=== PATIENT | female | born 1975 | race Caucasian/White ===

== ENCOUNTER 2017-08-17 11:44 | Emergency (ER) | payer MEDICAID, SELFPAY ==
[2017-08-17 11:45] VITALS: BP 118/71; PULSE 96; RESP 18; TEMP 36.7; O2SAT 98; BMI 29.6
--- NOTE | 2017-08-17 12:27 | ED.VISSUMM ---
- ER Visit Summary Date of Service: 08/17/17 Chief Complaint: [] Left sided back pain today while stretching to reach objects at home History of Present Illness: The patient is a 41 F [] history of low lumbar back pain with 3 prior lumbar back surgeries she has also had neck fusion related to cervical disc disease she basically reports she has chronic low lumbar back pain she has been seen by multiple physicians including pain management which she stopped seeing in April 2017 she had prior back injections. She indicates today she was stretching to reach for some objects in her own when she had pain to the low left lumbar area that she has had before she could not relieve the pain she came in for evaluation. She had no fever no cough no chest pain no abdominal pain no nausea no numbness weakness or paresthesias no bowel or bladder complaints the pain is from the left low lumbar back into the left buttock she really does not complain of any pain radiating to the lower leg and she has no complaints of anything to suggest cauda equina as her bowel bladder habits have been normal, She indicates she has had this type pain in the past she did received back injections those stopped working she was on pain management therapy and eventually discontinue that as above She suffered no direct trauma is the history of reaching stretching as above Physical Examination: [] She is in no distress she prefers to lay on the right side head neck chest abdomen unremarkable the midline back is unremarkable there is no pain her pain is really more localized to the left SI joint region and into the left buttock this area is tender to palpation no warmth no crepitance she has full range of motion to her lower extremities dorsi and plantarflexion of the toes and the feet are unremarkable symmetric pulses symmetric as her skin she has no signs of motor weakness the lower extremities or sensory loss neurologically she is awake and alert her baseline Test Results: [] Emergency Department Course and Treatment: [] All of the above the patient her family at this time she will be given Toradol morphine 4 Jackpot tablets for home use and she is to follow-up with her pain management physicians family physicians and other prescribers and caregivers to further manage this ongoing pain she is comfortable with this plan Treatment Plan: [] Disposition: [] Home stable Impression: [] Acute recurrent lumbar back pain is This note was generated with Photocollectation software. It may contain incorrect words, spelling, and punctuation that were not noted in review of the chart prior to signing ED Disposition - Plan for ED Patient: Chief Complaint: Back Referrals: Bee Penaloza MD [Primary Care Provider] -
--- NOTE | 2017-08-17 12:30 | ED.DEP ---
ED Disposition - Plan for ED Patient: Chief Complaint: Back Instructions: ED Sciatica Prescriptions: Hydrocodone/Acetaminophen [[place] 5-325 Tablet] 1 ea PO 4X/DAY PRN PRN #4 tab PRN Reason: Pain Naproxen [Naprosyn] 500 mg PO BID PRN #20 tab Referrals: Bee Penaloza MD [Primary Care Provider] -
--- NOTE | 2017-08-17 12:35 | DCINST.ED_ITS ---
ED Disposition - Plan for ED Patient: Chief Complaint: Back Instructions: ED Sciatica Prescriptions: Hydrocodone/Acetaminophen [[place] 5-325 Tablet] 1 ea PO 4X/DAY PRN PRN #4 tab PRN Reason: Pain Naproxen [Naprosyn] 500 mg PO BID PRN #20 tab Referrals: Bee Penaloza MD [Primary Care Provider] -
[2017-08-17] MEDS: Ketorolac 60 MG/2 ML Vial IM (12:56)
[2017-08-17] MEDS: morphine 8 MG/ML Syringe IM (12:57)
[2017-08-17] MEDS: Ondansetron ODT 4 MG Tablet PO (12:57)
[2017-08-17 13:36] VITALS: BP 140/72; PULSE 80; RESP 18; O2SAT 98
== END 2017-08-17 13:39 | disposition home or self-care (01) ==
PROVIDERS: Emergency Provider Emergency Medicine; Family Provider Internal Medicine; PCP Internal Medicine
DX: M54.5 Low back pain (principal); Z98.1 Arthrodesis status
CPT/HCPCS: 99283

== ENCOUNTER 2018-06-28 10:54 | Emergency (ER) | payer MEDICAID, SELFPAY ==
[2018-06-28 10:55] VITALS: BP 119/78; PULSE 86; RESP 20; TEMP 36.8; O2SAT 98; BMI 26.5
--- NOTE | 2018-06-28 11:09 | RAD_ITS ---
STUDY: X-RAY - LUMBAR SPINE REASON FOR EXAM: Female, 42 years old. Low back pain radiating to the right leg. TECHNIQUE: 3 view(s) of the lumbar spine were obtained. COMPARISON: X-ray dated May 12, 2016. FINDINGS: No significant scoliosis. Lumbar lordosis relatively preserved. Intervertebral disc height loss predominates at L4-5. Endplate spondylosis predominates at L4-5. No foraminal narrowing predominates at L4-5 and L5-S1. Minimal facet joint arthrosis. No spondylolisthesis. No acute fracture line. No dislocation. No cortical destruction. Right upper quadrant surgical clips. Normal bowel gas pattern. Pelvic phleboliths. RAD/Lumbar Spine 2 or 3 Views IMPRESSION: Lumbar spine intact Lumbar spine degenerative changes predominating at L4-5 Electronically Signed: Dave Banks DO at 12:09 EDT Tel , Service support ,
[2018-06-28] MEDS: morphine 8 MG/ML Syringe SC (11:18)
--- NOTE | 2018-06-28 11:25 | ED.DCSUM_ITS ---
- ER Visit Summary Date of Service: 06/28/18 Chief Complaint: Right lower back pain History of Present Illness: The patient is a 42 F who has right lower back pain. This pain is radiating to the right hip and right leg. She has been dealing with it for some time but got worse yesterday. It is sharp. Movement and ambulation makes it worse. Nothing makes it better. She denies any bowel or bladder incontinence or retention. She took nothing for this at home. She does have a history of back problems and has had 3 lower back surgeries. She denies any injuries or falls. Physical Examination: Vital signs reviewed. HEENT exam unremarkable. Heart is regular rate and rhythm. Lungs are clear to auscultation. Abdomen soft and nontender. Back exam reveals no specific tenderness to palpation. She has a positive straight leg raise at 20 degrees on the right. There is no hip tenderness. No pain with logroll. Her neurologic exam including reflexes is normal Test Results: Urinalysis negative for infection or blood. Lumbar spine x-rays reveal degenerative changes Emergency Department Course and Treatment: The patient was given subcutaneous morphine. After this she was able to ambulate without difficulty. I did give her some prednisone and a GI cocktail for some stomach irritation. I feel this is likely sciatica. I will treat her with prednisone and a short course of [place] at home. [facility] report shows no prescriptions since August 2017 Treatment Plan: [] Disposition: Discharge Impression: Sciatica This note was generated with [employer] dictation software. It may contain incorrect words, spelling, and punctuation that were not noted in review of the chart prior to signing ED Disposition - Plan for ED Patient: Referrals: Bee Penaloza MD [Primary Care Provider] -
[2018-06-28 12:21] LABS: Bacteria 0 SEEN /hpf (None Seen); Mucous, Urine 0 SEEN /hpf (<or=2+); Red Blood Cells-Urine 0 SEEN /hpf (0-5)
[2018-06-28 12:22] LABS: Color, Urine Yellow (Yellow); Glucose, Dipstick Normal (Normal); Ketone-Dipstick Negative (Negative); Leukocyte Esterase-Dipstick 25 /ul (Negative); Nitrite-Dipstick Negative (Negative); Occult Blood-Urine Negative /ul (Negative); Protein-Dipstick Negative (Negative); Urine Bilirubin Dipstick Negative (Negative); Urine Clarity Sl. Cloudy (Clear); Urine Urobilinogen Normal (Normal)
[2018-06-28] MEDS: predniSONE 20 MG Tablet 60 MG PO (12:26)
[2018-06-28 12:28] LABS: Squamous Epithelial Cells - UA 0-5 SEEN /hpf (5-10); White Blood Cells 0-5 SEEN /hpf (0-5)
--- NOTE | 2018-06-28 12:46 | ED.DEP ---
ED Disposition - Plan for ED Patient: Disposition: Home or Assisted Living Instructions: ED Sciatica Prescriptions: Hydrocodone Bitart/Apap 5-325 [[place] 5MG-325MG] 1 tab PO Q6H PRN PRN 3 Days #10 tab PRN Reason: Pain Prednisone [Deltasone] 40 mg PO DAILY #10 tab Referrals: Bee Penalzoa MD [Primary Care Provider] -
[2018-06-28] MEDS: Ondansetron ODT 4 MG Tablet 8 MG PO (12:50)
[2018-06-28] MEDS: Mag Hydrox/Al Hydrox/Simeth 30 ML UDC PO (13:03)
[2018-06-28 13:37] VITALS: BP 101/66; PULSE 52; RESP 16; O2SAT 100
== END 2018-06-28 13:38 | disposition home or self-care (01) ==
PROVIDERS: Emergency Provider Emergency Medicine; Family Provider Internal Medicine; PCP Internal Medicine
DX: M54.30 Sciatica, unspecified side (principal); Z72.0 Tobacco use
CPT/HCPCS: 72100; 81001; 96372; 99282

== ENCOUNTER 2018-07-07 11:03 | Emergency (ER) | payer MEDICAID, SELFPAY ==
[2018-07-07 11:04] VITALS: BP 140/105; PULSE 101; RESP 16; TEMP 36.7; O2SAT 98; BMI 25.6
--- NOTE | 2018-07-07 11:31 | MRI_ITS ---
STUDY: MRI LUMBAR SPINE WITH AND WITHOUT CONTRAST REASON FOR EXAM: Female, 42 years old. Low back pain and bilateral legs. Hard to walk. Leg weakness. TECHNIQUE: Standardized fat and water weighted pulse sequences were obtained in the sagittal and axial planes. 12 IV Dotarem was administered for the contrast portion of the examination. COMPARISON: 05/12/2016 FINDINGS: T10-T11: (Sagittal only). Normal endplates. Normal disc height, hydration and morphology. No ventral extradural defect. Normal central canal and bilateral intervertebral neural foramina. T11-T12: (Sagittal only). Normal endplates. Normal disc height, hydration and morphology. No ventral extradural defect. Normal central canal and bilateral intervertebral neural foramina. T12-L1: (Sagittal only). Normal endplates. Normal disc height, hydration and morphology. No ventral extradural defect. Normal central canal and bilateral intervertebral neural foramina. Normal lumbar lordosis. There is no substantial scoliosis. Normal conus medullaris that terminates at the T12-L1 disc level. L1-2: Normal L1 inferior endplate. Minimal old compression fracture in the central aspect of the L2 superior endplate. This accounts for the increased disc space height. Normal disc hydration and morphology. No ventral extradural defect. Normal central canal and bilateral lateral recesses. Normal facet joints. Normal bilateral intervertebral neural foramina. L2-3: Normal endplates. Normal disc height, hydration and morphology. Normal bilateral facet joints. Normal central canal and bilateral lateral recesses. Normal bilateral intervertebral neural foramina. L3-4: Normal endplates. Mild disc space height narrowing. Small posterior T2 hyperintensity zone underneath the bulging annulus is posterior annular fissure. This is unchanged. Normal central canal and bilateral lateral recesses. Mild dorsal epidural lipomatosis. Normal facet joints. Normal bilateral intervertebral neural foramina. L4-5: Modic type II degenerative vertebral marrow fatty changes underneath the vertebral endplates. Moderate disc space height narrowing. Mild degenerative retrolisthesis of L4 on L5. Right L4 hemilaminectomy defect. Posterior bulging of the thecal sac at the hemilaminectomy site. Normal central canal and bilateral lateral recesses. Minimal right ventral extradural defect is enhancing postoperative fibrosis. Normal facet joints. Normal bilateral intervertebral neural foramina. L5-S1: Normal endplates. Normal disc height and morphology. Normal central canal and bilateral lateral recesses. Normal facet joints. Normal bilateral intervertebral neural foramina. Normal visualized sacral ala. Normal visualized paraspinous soft tissue structures. Minimal enhancing postoperative fibrosis of the right L4-L5 ventral extradural defect. No other enhancing lesions intradurally and extradurally. MRI/Spine Lumbar W/WO Contrast IMPRESSION: 1. Small right L4-L5 ventral extradural defect is enhancing postoperative fibrosis. 2. No MRI evidence of lumbar extruded disc fragment, spinal stenosis or nerve root displacement. 3. Small posterior annular fissure at the L3-L4 disc level is underneath the posterior bulging annulus. This is unchanged. 4. Pronounced Modic type II degenerative vertebral marrow fatty changes underneath the vertebral endplates at L4-L5 disc level and mild degenerative retrolisthesis of L4 on L5. This level is unchanged. 5. No significant interval changes when compared to 05/30/2016. Electronically Signed: Ashish Hargrove MD at 15:42 EDT , Service support ,
--- NOTE | 2018-07-07 11:34 | ED.VISSUMM ---
- ER Visit Summary Date of Service: 07/07/18 Chief Complaint: Muscle spasms and pain History of Present Illness: The patient is a 42 F with history of bipolar disorder, back pain, depression. She has had 3 prior back surgeries. She is complaining of pain from her neck down to her tailbone that is been ongoing for quite some time. She states her feet and her lower legs are numb. That started yesterday. She was seen by her PCP yesterday where labs and MRIs were ordered to be done as an outpatient. Patient is supposed to see her neurologist next week. Patient states she was told that the pain is worse to go to the emergency room. She has not taken anything for pain today. Patient was seen in the ER on June 28 for low back pain. At that time she was treated with prednisone and [place] the patient reports no improvement. Physical Examination: Vital signs unremarkable. Patient is lying in bed in a darkened room. She is tearful. Head and neck examination reveals no obvious external sign of trauma. Heart is regular rate and rhythm. Lungs sounds are clear. Abdomen is soft and nontender. Back examination reveals diffuse tenderness throughout the thoracic and lumbar paraspinal muscles. She does have midline tenderness in the lower thoracic and lumbar region. Lower extremity examination reveals 1+ bilateral patellar reflexes. She is unequivocal Babinski's bilaterally. She is palpable distal pulses. She has good strength on testing and turns from her side to her back without difficulty. Test Results: CBC and chemistry studies are normal. Urinalysis is 150 ketones. MRI of the lumbar spine shows small right L4-5 postop fibrosis. No lumbar extruded disc, spinal stenosis, or nerve root impingement noted. There is an unchanged posterior annular fissure of L3-L4. There is unchanged degenerative fatty changes. Emergency Department Course and Treatment: Patient was given dose of morphine, Zofran, and IV fluids. After returning from MRI she did receive a second dose of morphine. At this time patient's pain is improved. She began a prescription for Percocet and baclofen which is worked well for her in the past. She will follow-up on Monday with her neurologist as scheduled. Treatment Plan: [] Disposition: Discharge Impression: Back pain with muscle spasms This note was generated with [employer]Med[employer] software. It may contain incorrect words, spelling, and punctuation that were not noted in review of the chart prior to signing ED Disposition - Plan for ED Patient: Referrals: Bee Penaloza MD [Primary Care Provider] -
[2018-07-07 11:51] LABS: Absolute Lymphocyte Count 1.96 X10^3/ul (0.83-4.51); Absolute Neutrophil Count 4.4 X10^3/uL (2.0-7.7); Basophil# 0.02 X10^3/uL; Basophil% 0.3 % (0-1); Eosinophil# 0.11 X10^3/uL; Eosinophils% 1.6 % (0-5); Hematocrit 41.9 % (37-47); Lymphocyte # 1.96 X10^3/ul (4.0); Lymphocyte % 28.1 % (19-41); Mean Corp Hgb Conc 33.4 g/gl (32-36); Mean Corpuscular Volume 92.9 fL (81-99); Mean Platelet Vol. 9.2 fl (6.2-12.0); Monocyte# 0.43 X10^3/uL; Monocyte% 6.2 % (0-10); Neutrophil # 4.44 X10^3/uL (2.7-7.7); Neutrophil % 63.7 % (47-70); POSITIVE COUNT NO; POSITIVE DIFFERENTIAL NO; POSITIVE MORPHOLOGY NO; Platelet Count 371 K/mm3 (150-450); RBC Distribution Width CV 12.9 % (11.6-14.6); RBC Distribution Width SD 43.2 fl (35.1-43.9); Red Blood Count 4.51 M/mm3 (4.2-5.4)
[2018-07-07 12:02] LABS: Anion Gap 4 (5-15); BUN 9 mg/dL (7-18); BUN/Creat Ratio 12.7 RATIO (10-20); Chloride 105 mmol/L (98-107); Creatinine, Serum 0.71 mg/dL (0.55-1.02); EST Glomerular Filtration Rate 97 mL/min (>60); Est Glom Filt Rate - Afr Amer 117 mL/min (>60); Glucose 92 mg/dL (74-106); Potassium 3.7 mmol/L (3.5-5.1); Sodium Level 136 mmol/L (136-145)
[2018-07-07] MEDS: 0.9% Normal Saline 1,000 ML 150 ML IV (12:13)
[2018-07-07] MEDS: Morphine 4 MG/ML Syringe IV ×2 (12:13→14:25)
[2018-07-07] MEDS: Ondansetron 4 MG/2 ML Vial IV ×2 (12:14→14:23)
[2018-07-07 13:28] LABS: Red Blood Cells-Urine 0 SEEN /hpf (0-5)
[2018-07-07 13:29] LABS: Color, Urine Yellow (Yellow); Glucose, Dipstick Normal (Normal); Leukocyte Esterase-Dipstick 100 /ul (Negative); Nitrite-Dipstick Negative (Negative); Occult Blood-Urine Negative /ul (Negative); Protein-Dipstick Negative (Negative); Specific Gravity, Urine 1.015 (1.002-1.030); Urine Bilirubin Dipstick Negative (Negative); Urine Clarity Sl. Cloudy (Clear); Urine Urobilinogen Normal (Normal)
[2018-07-07 13:33] LABS: Ketone-Dipstick 150 mg/dl (Negative)
--- NOTE | 2018-07-07 13:35 | ED.RN ---
CRITICAL URINE KEYTONE 150 CALLED FROM LAB
[2018-07-07 13:36] LABS: Bacteria 2+ /hpf (None Seen); Mucous, Urine RARE /hpf (<or=2+); Squamous Epithelial Cells - UA 0-5 SEEN /hpf (5-10); Trichomonas 0-5 SEEN /hpf (None Seen); White Blood Cells 5-10 SEEN /hpf (0-5)
[2018-07-07 14:16] VITALS: BP 103/56; PULSE 60; RESP 18; O2SAT 100
--- NOTE | 2018-07-07 16:08 | ED.DEP ---
ED Disposition - Plan for ED Patient: Disposition: Home or Assisted Living Instructions: ED Neck Back Pain General, ED Spasm Muscle Prescriptions: Oxycodone HCl/Acetaminophen [Percocet 5/325] 1 tablet PO Q6H PRN PRN 5 Days #20 tablet PRN Reason: Pain Baclofen 10 mg PO TID PRN PRN #14 tablet PRN Reason: Spasms Referrals: Bee Penaloza MD [Primary Care Provider] - Additional Instructions: Follow-up with your neurologist as scheduled.
[2018-07-07 16:22] VITALS: BP 108/74; PULSE 83; RESP 16; RESP 18; O2SAT 96
== END 2018-07-07 16:55 | disposition home or self-care (01) ==
PROVIDERS: Emergency Provider Emergency Medicine; Family Provider Internal Medicine; PCP Internal Medicine
DX: M54.9 Dorsalgia, unspecified (principal); M62.838 Other muscle spasm; R51 Headache; R20.2 Paresthesia of skin; Z72.0 Tobacco use
CPT/HCPCS: 72158; 80048; 81001; 85025; 96361; 96374; 96375; 96376; 99284; A9575; J7030; A4216; J2405

== ENCOUNTER → 2018-07-19 10:30 | Outpatient (CLI) | payer MEDICAID, SELFPAY ==
[2018-07-07 11:04] VITALS: BMI 25.6
[2018-07-19 12:18] LABS: Erythrocyte Sedimentation Rate 4 mm/hr (0-20)
[2018-07-19 12:50] LABS: Hemoglobin A1c 5.7 % (4.2-6.3)
[2018-07-19 13:10] LABS: Rheumatoid Factor < 10.0 IU/mL (<15); Thyroid Stim Hormone (TSH) 1.58 uIU/mL (0.358-3.74)
[2018-07-19 13:33] LABS: HIV - WCH Non-Reactive (Nonreactive); Vitamin B12 346 pg/mL (211-911)
[2018-07-20 17:38] LABS: PROEL- A/G Ratio 1.1 (0.7-1.7); PROEL- Albumin 3.5 g/dL (2.9-4.4); PROEL- Alpha-1 Globulin 0.3 g/dL (0.0-0.4); PROEL- Alpha-2 Globulin 0.7 g/dL (0.4-1.0); PROEL- Beta Globulin 1.2 g/dL (0.7-1.3); PROEL- Gamma Globulin 1.1 g/dL (0.4-1.8); PROEL- Globulin, Total 3.3 g/dL (2.2-3.9); PROEL- TOTAL PROTEIN 6.8 g/dL (6.0-8.5); RNP Ab 0.3 AI (0.0-0.9); Smith Ab <0.2 AI (0.0-0.9)
[2018-07-21 15:31] LABS: Hep C Antibodies 5.9 s/co ratio (0.0-0.9)
[2018-07-21 15:54] LABS: ANTINUCLEAR ANTIBODIES DIRECT Negative (Negative)
== END ==
PROVIDERS: Family Provider Internal Medicine; PCP Internal Medicine; Referring Provider Psychiatry & Neurology Neurology; Visit Provider Psychiatry & Neurology Neurology
DX: G62.9 Polyneuropathy, unspecified (principal); R20.2 Paresthesia of skin; R53.83 Other fatigue; R73.9 Hyperglycemia, unspecified
CPT/HCPCS: 36415; 82607; 82746; 83036; 84165; 84443; 85652; 86038; 86235; 86431; 86703; 86803

== ENCOUNTER 2018-08-10 12:00 | Outpatient (RCR) | payer MEDICAID, SELFPAY ==
--- NOTE | 2018-08-02 15:32 | HP.PTEVAL ---
Patient's Visit Information JONH SOMMER is a 42 year old F referred to Physical Therapy by Ebenezer Meredith MD with a diagnosis of BPPV. Date of Evaluation: 08/02/18 Physical Therapist: Dave Fernández, DPT, OCS, CSCS - Visit Plan Frequency: 1-2x /Week Duration: 4-6 Weeks Plan: weekly 1-2 for 2-8 as needed for positional treatments/ex adn other vestibular if warranted. - Subjective Findings: Having very bad dizzy spells causing her in the past to fall off ladders, avoid turning fast, can't walk fast, can't lift heavy things. Things spin on her 10-15 seconds caused by heat, activity, kneeling and standing, sit down, not really an obvious reason. Onset was over a year ago. Was in [employer] for first spell do dishes. 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 Kids are helpful. She doesn't carry laundry up steps. Other symptoms include poor hearing in both ears with ringing intermittently. Eyesight can be off and doctor doesn't know why, will see eye doctor. States she can be tingly without reason. Lst 5 days have been good with this though. Sleeping OK an oamitryptilline as she gets LARA alot. She has had these a long time. Sent to [facility] for dizzyness from [facility]. Enjoys reading adn swimming but hasn't done them as swimming makes her sick and nauseous. Has had brain MRI, nerve testing on legs, bloodwork, heart tests and without obvious positive results. Takes vitmain D supplement. Fell off ladder 2x adn will not climb them anymore, and did not hit head. - Pain all over Pain Intensity (Out of 10): 3 Pain Intensity Range: 3, 10 Comment: FM 9 years ago. - Objective Walks and trasnfers I. Good balance. Hesitant to look up while walking but could do it well. c/S aROM WFL and without pain today. - R hallpike. + L hallpike for up torsional 5 second nystagmus, treated with L Radha and then negative hallpike. - Balance Scores Functional Gait Assessment Score: 30 % Disability: 0 CATSIB Score (Max score 120 seconds): 110 - Goals Goal 1:: abolish dizzyness Goal Time Frame: 4-6 Weeks Goal 2:: Feel back to 90% better with activities adn laundry Goal Time Frame: 4-6 Weeks - Rehabilitation Potential Physical Therapy Diagnosis: BPPV Rehabilitation Potential: Good - Anticipated Interventions Patient/Client Instruction: Educate patient on: Condition, Plan of Care For the Purpose of:: To increase tolerance to activity/condition/position Comment: positional treatmetns adn ex, vestibular. For the Purpose of:: To increase tolerance to activity/condition/position Thank you for the opportunity to evaluate your patient. For Medicare and Medicare HMO plans, please review the plan of care and approve it. It will need to be FAXED BACK to us at [phone] for Medicare purposes. For Medicare only, by signing this I certify the plan of care. Please let me know if there are questions or concerns regarding this plan of care. Physician Signature: Date:
--- NOTE | 2018-10-29 09:32 | HP.PT.NRP ---
HP - Discharge Summary (1) - Patient Information JONH SOMMER was seen in my office for initial evaluation on 08/02/18. The following Plan of Care was established for this patient: Initial Frequency: 1-2x /Week Initial Duration: 4-6 Weeks - Anticipated Interventions Patient/Client Instruction: Educate patient on: Condition, Plan of Care For the Purpose of:: To increase tolerance to activity/condition/position For the Purpose of:: To increase tolerance to activity/condition/position This patient was last seen in our office 08/10/18. Pertinent comments regarding their Physical therapy will appear below: Pt seen two visits of plan of care and no showed for last visit without rescheduling. at this point, it has been over two months and I will discontinue due to nonattendance. At this point I will be discontinuing this patient from physical therapy. I would be happy to see this patient again in the future if found appropriate by the physician. Thank you! Dave Fernández, DPT, OCS, CSCS
== END 2018-08-10 19:00 | disposition home or self-care (01) ==
LOC: PT 12:00
PROVIDERS: Family Provider Internal Medicine; PCP Internal Medicine; Visit Provider Psychiatry & Neurology Neurology
DX: H81.10 Benign paroxysmal vertigo, unspecified ear (principal)
CPT/HCPCS: 97162; 97530

== ENCOUNTER 2018-10-10 09:39 | Emergency (ER) | payer MEDICAID, SELFPAY ==
[2018-10-10 09:40] VITALS: BP 113/68; PULSE 72; RESP 16; TEMP 36.3; BMI 23.8
[2018-10-10] MEDS: DiphenhydrAMINE 50 MG/ML Syringe 25 MG IV (10:38)
[2018-10-10] MEDS: Ketorolac 30 MG/ML Syringe IV (10:39)
[2018-10-10] MEDS: Metoclopramide 10 MG/2 ML Vial IV (10:39)
[2018-10-10] MEDS: 0.9% Normal Saline 1,000 ML 999 ML IV (10:39)
--- NOTE | 2018-10-10 11:38 | ED.VISSUMM ---
- ER Visit Summary Date of Service: 10/10/18 Chief Complaint: Headache History of Present Illness: The patient is a 43 F with history of migraine headaches. She states this headache started 2 days ago and is diffuse in location. She states normally her migraines will get better with Excedrin but this time did not. She has had light sensitivity, nausea, but no vomiting. She has had some mild sinus pressure. No significant URI symptoms and no head injury. Physical Examination: Vital signs unremarkable. Head and neck examination normal. Heart is regular rate and rhythm. Lung sounds clear. Abdomen soft nontender. Neuro exam is normal. Test Results: [] Emergency Department Course and Treatment: Patient was given Toradol, Reglan, Benadryl, and IV fluids. On repeat evaluation headache is approximately 70% improved. She will be discharged with family. Treatment Plan: [] Disposition: Discharge Impression: Migraine, improved This note was generated with [employer] dictation software. It may contain incorrect words, spelling, and punctuation that were not noted in review of the chart prior to signing ED Disposition - Plan for ED Patient: Disposition: Home or Assisted Living Instructions: HEADACHE, Migraine (Classical) Referrals: Bee Penaloza MD [Primary Care Provider] - As Needed
[2018-10-10 12:02] VITALS: BP 105/64; PULSE 555; RESP 16
== END 2018-10-10 12:02 | disposition home or self-care (01) ==
PROVIDERS: Emergency Provider Emergency Medicine; Family Provider Internal Medicine; PCP Internal Medicine
DX: G43.909 Migraine, unspecified, not intractable, without status migrainosus (principal); Z72.0 Tobacco use
CPT/HCPCS: 96361; 96374; 96375; 99283; J7030; A4216

== ENCOUNTER → 2018-10-29 15:20 | Outpatient (CLI) | payer MEDICAID, SELFPAY ==
[2018-10-10 09:40] VITALS: BMI 23.8
--- NOTE | 2018-10-29 15:31 | MRI_ITS ---
HISTORY: Dizziness, occasional blackout spells 1.5 years COMPARISON: None. TECHNIQUE: Multiphasic multiplanar MR imaging of the brain per department protocol without and with 12 ml of Dotarem intravenous gadolinium. # of images including paperwork: 330 FINDINGS: BRAIN: Diffusion-weighted imaging shows no acute infarct. No remote parenchymal infarct. No parenchymal hemorrhage, intra-axial mass, mass effect, or midline shift. No abnormal extra-axial fluid collections. No callososeptal, pericallosal, or periventricular white matter signal abnormalities. VENTRICLES: Ventricles are normal in size and configuration. No hydrocephalus. POST CONTRAST: No abnormal enhancing parenchymal or dural based lesions. OTHER: Paranasal sinuses are clear. Mastoid air cells are clear. Orbits are unremarkable. MRI/Brain W/WO Contrast IMPRESSION: 1. Negative pre-and postcontrast MR examination of brain. at 1810 Reported and signed by: Abdirahman Thompson MD Electronically Signed: Abdirahman Thompson MD at 18:09 EDT Tel , Service support ,
== END ==
PROVIDERS: Family Provider Internal Medicine; PCP Internal Medicine; Referring Provider Psychiatry & Neurology Neurology; Visit Provider Psychiatry & Neurology Neurology
DX: R55 Syncope and collapse (principal)
CPT/HCPCS: 70553; A9575

== ENCOUNTER 2018-11-25 16:26 | Emergency (ER) | payer MEDICAID, SELFPAY ==
[2018-11-25 16:27] VITALS: BP 102/73; PULSE 68; RESP 16; TEMP 36.6; O2SAT 97; BMI 24.7
--- NOTE | 2018-11-25 16:39 | ED.DCSUM_ITS ---
- ER Visit Summary Date of Service: 11/25/18 Chief Complaint: Migraine headache History of Present Illness: The patient is a 43 F history of migraine headaches. Had a recent MRI about a month ago that was negative. Patient states last night she gradual onset of her typical migraine it begins in her forehead and spreads out all over her entire head. Associated nausea but no vomiting, diarrhea nor any fever. No sinus congestion. No trauma. She is on no blood thinners. She denies any difficulty moving her arms or legs. No visual change or speech change. This is typical for 1 of her migraines. Physical Examination: Middle-aged female. Complaining of pain. Vital signs are stable and afebrile. HEENT exam unremarkable. No sinus tenderness. Pupils round reactive light. Extra motions are intact. No facial droop. Normal speech. Neck nontender no meningismus. Able to do full range of motion with her neck. Lungs clear to auscultation. Heart regular rhythm. Abdomen soft nontender. Moving all 4 extremities. Neurovascular intact. 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 Dorsi plantarflexion intact. Neurologically she is awake and alert with no focal motor or sensory deficits. NIH score is 0. Fingertip to nose within normal limits bilaterally. Test Results: None Emergency Department Course and Treatment: Patient be treated for migraine headache with IV fluids, Toradol, Benadryl and Phenergan. She has had recent negative imaging. Repeat exam patient is doing well at 1720 2 PM. Headache is resolving. She feels comfortable being discharged home. Her neurologic exam is unchanged. Treatment Plan: Fluids and rest. Migraine meds at home as needed. Follow-up. Disposition: Discharge Impression: Acute cephalgia with a history of migraines This note was generated with [employer] dictation software. It may contain incorrect words, spelling, and punctuation that were not noted in review of the chart prior to signing ED Disposition - Plan for ED Patient: Disposition: Home or Assisted Living Instructions: ED, Migraine (Classical) Referrals: Bee Penaloza MD [Primary Care Provider] - 3-5 Days if not improving Additional Instructions: Plenty of fluids and rest. Migraine medications at home. Follow-up if not improving or return if worse.
--- NOTE | 2018-11-25 16:42 | ED.DEP ---
ED Disposition - Plan for ED Patient: Disposition: Home or Assisted Living Instructions: ED, Migraine (Classical) Referrals: Bee Penaloza MD [Primary Care Provider] - 3-5 Days if not improving Additional Instructions: Plenty of fluids and rest. Migraine medications at home. Follow-up if not improving or return if worse.
[2018-11-25] MEDS: 0.9% Normal Saline 1,000 ML 1000 ML IV (16:43)
[2018-11-25] MEDS: proMETHazine 25 MG/ML Syringe 12.5 MG IV (16:44)
[2018-11-25] MEDS: Ketorolac 30 MG/ML Syringe IV (16:45)
[2018-11-25] MEDS: DiphenhydrAMINE 50 MG/ML Syringe IV (16:46)
[2018-11-25 17:13] VITALS: BP 118/55; PULSE 52; RESP 18; O2SAT 100
[2018-11-25 17:24] VITALS: BP 118/55; PULSE 52; RESP 18
== END 2018-11-25 17:29 | disposition home or self-care (01) ==
LOC: ED 17:00
PROVIDERS: Emergency Provider Emergency Medicine; Family Provider Internal Medicine; PCP Internal Medicine
DX: G43.909 Migraine, unspecified, not intractable, without status migrainosus (principal); Z72.0 Tobacco use
CPT/HCPCS: 96361; 96374; 96375; 99284; J7030; A4216

== ENCOUNTER → 2018-12-14 14:26 | Outpatient (CLI) | payer MEDICAID, SELFPAY ==
[2018-11-25 16:27] VITALS: BMI 24.7
[2018-12-14 15:50] LABS: Erythrocyte Sedimentation Rate 12 mm/hr (0-20)
[2018-12-14 15:57] LABS: CRP 3.73 mg/L (0.0-3.0)
[2018-12-17 16:07] LABS: Cytoplasmic Ab (C-ANCA) <1:20 titer (Neg:<1:20)
[2018-12-18 09:58] LABS: ANTINUCLEAR ANTIBODIES DIRECT Negative (Negative); Perinuclear Ab (P-ANCA) <1:20 titer (Neg:<1:20)
== END ==
PROVIDERS: Family Provider Internal Medicine; PCP Internal Medicine; Referring Provider Psychiatry & Neurology Neurology; Visit Provider Psychiatry & Neurology Neurology
DX: M31.5 Giant cell arteritis with polymyalgia rheumatica (principal)
CPT/HCPCS: 36415; 85652; 86038; 86140; 86256

== ENCOUNTER 2019-03-14 13:36 | Emergency (ER) | payer MEDICAID, SELFPAY ==
[2019-03-14 13:37] VITALS: BP 134/87; PULSE 70; RESP 17; TEMP 36.7; O2SAT 100; BMI 25.7
[2019-03-14 14:12] VITALS: RESP 18
--- NOTE | 2019-03-14 14:38 | ED.VIS.GEN ---
History of Present Illness Chief Complaint: Back Informant: Patient, Family Onset: - - Ears chronic Current Severity: Mild Narrative: Low lumbar back pain radiating to the right buttock area for years, She has had 3 lumbar back surgeries in the past for the above, extensive prior evaluation for postoperative lumbar back pain including MRIs and x-rays and other work-up with outpatient providers she has been told she does not require additional back surgery she has flareups of the back pain she is on no pain management meds as she is scheduled to see a pain management physician she had prior lumbar back injections for this type of pain, she had no trauma no numbness weakness paresthesias no bowel or bladder complaints Believes her chronic back pain syndrome exacerbated because she was at work lifting and bending and turning and twisting Past Medical History - Allergies and Home Meds Allergies/Adverse Reactions: Allergies bupropion [From Wellbutrin] Allergy (Verified 03/14/19 13:37) Swelling risperidone [From Risperdal] Adverse Reaction (Verified 03/14/19 13:37) Other restlessness tramadol Adverse Reaction (Verified 03/14/19 13:37) Upset Stomach Primary Care Physician: Bee Penaloza MD [Primary Care Provider] - Prior records reviewed: No - See above Past Medical History: - - See above lumbar back pain history surgery Smoking Status: Current every day smoker Review of Systems General: Denies: Chills, Fever, Sweats Eyes: Denies: Visual changes - bilaterally, Diplopia ENT: Denies: Rhinorrhea, Sore throat Cardiovascular: Denies: Chest pain, Palpitations Respiratory: Denies: Dyspnea, Cough, Dyspnea on exertion Gastrointestinal: Denies: Abdominal pain, Nausea, Vomiting, Diarrhea, Melena, Hematochezia Genitourinary: Denies: Dysuria, Hematuria, Frequency Musculoskeletal: Reports: Back pain. Denies: Extremity Pain Skin: Denies: Rash, Wounds Neurological: Denies: Headache, Weakness, Numbness Physical Exam Vital Signs/Narrative: Vital Signs Temp Pulse Resp BP Pulse Ox 03/14/19 14:12 18 03/14/19 13:37 98.0 F 70 17 134/87 H 100 General: Well nourished, Well developed, No Acute Distress Head: Normocephalic, Atraumatic Eyes: Perrl, EOMI ENT: Moist mucous membranes, No rhinorrhea Neck: Supple, Nontender Cardiovascular: Regular rate, Regular rhythm, No murmurs Respiratory: No distress, CTA bilaterally, Chest nontender Abdomen: Soft, Nontender, Nondistended, Normal bowel sounds Back: Nontender, Normal Inspection, - - She has a pain to the low lumbar back radiates to the right buttock, there is no focal pain is really subjective she has full range of motion of the hip knee able dorsi and plantarflex at the foot no symptoms on the left her abdomen soft and nontender C-spine T-spine nontender the rest of her exam is really unremarkable Extremities: Nontender, No edema Skin: Normal color, No rash Neurological: Alert, Oriented x3, Cranial nerves II-XII grossly intact, Normal Strength, Normal Sensation Psychological: Normal affect, Normal Mood Diagnostic/Tx/Re-eval - Medical Decision Making I had a long conversation with the patient she assures me this is her chronic back pain there is been no exacerbations no signs of fracture no signs of cauda equina no bowel or bladder complaints At this time we will treated with morphine IM Toradol IM, she will be discharged to use what ever home medications her outpatient providers have recommended she use Naprosyn if tolerated and she will follow-up with her outpatient providers for further management Home stable Final impression ED Disposition - Plan for ED Patient: Diagnosis: Back pain Instructions: BACK SPASM, No Trauma, BACK PAIN w/ SCIATICA Prescriptions: Naproxen [Naprosyn] 500 mg PO BID PRN #20 tab Prescription Printed Referrals: Bee Penaloza MD [Primary Care Provider] -
[2019-03-14] MEDS: Ketorolac 30 MG/ML Syringe IM (14:47)
[2019-03-14] MEDS: morphine 8 MG/ML Syringe SC (14:48)
== END 2019-03-14 15:20 | disposition home or self-care (01) ==
LOC: ED 14:10
PROVIDERS: Emergency Provider Emergency Medicine; Family Provider Internal Medicine; PCP Internal Medicine
DX: M54.5 Low back pain (principal); G89.29 Other chronic pain; F17.200 Nicotine dependence, unspecified, uncomplicated; Z88.5 Allergy status to narcotic agent; Z88.8 Allergy status to other drugs, medicaments and biological substances
CPT/HCPCS: 99282

== ENCOUNTER → 2019-03-16 11:57 | Outpatient (CLI) | payer MEDICAID, SELFPAY ==
[2019-03-14 13:37] VITALS: BMI 25.7
[2019-03-16 12:32] LABS: Amphetamine Urine VISTA NEGATIVE (<1000 ng/mL); Barbiturate Urine VISTA NEGATIVE (< 200 ng/mL); Benzodiazepine Urine VISTA NEGATIVE (< 200 ng/mL); Cocaine Urine VISTA NEGATIVE (< 300 ng/mL); Ecstacy Urine VISTA NEGATIVE (< 500 ng/mL); Methadone Urine VISTA NEGATIVE (< 300 ng/mL); PCP Urine VISTA NEGATIVE (< 25 ng/mL); THC Urine VISTA NEGATIVE (< 50 ng/mL); Vista UDS pH Range 6
== END ==
PROVIDERS: Family Provider Internal Medicine; PCP Internal Medicine; Referring Provider Anesthesiology; Visit Provider Anesthesiology
DX: F11.20 Opioid dependence, uncomplicated (principal)
CPT/HCPCS: 80307

== ENCOUNTER 2019-03-29 11:59 | Day surgery (SDC) | payer MEDICAID, SELFPAY ==
[2019-03-29] VITALS (7 sets, daily range): BP systolic 94–112; BP diastolic 56–81; PULSE 44–55; RESP 14–16; TEMP 36.2–36.6; O2SAT 98–100; BMI 25.9
[2019-03-29] MEDS: Lactated Ringers 1,000 ML 100 ML IV (12:42)
--- NOTE | 2019-03-29 14:23 | OP.PCM_ITS ---
Problem List (1) Cervical radiculopathy Status: Acute (2) Cervical radiculopathy due to degenerative joint disease of spine Status: Acute (3) DDD (degenerative disc disease), cervical Status: Acute Report of Operation Date of Procedure: 03/29/19 Pre-Operative Diagnosis: Cervical degenerative disc disease with cervical radiculopathy Post-Operative Diagnosis: Same Surgery/Procedure Performed:: Cervical epidural steroid injection at C6-7 under fluoroscopy guidance Description of Surgical Findings:: Under sterile conditions. Patient placed in the prone position, pressure points were padded, patient was ready from the nursing and the anesthesia team. After identification of the side and the target area for the block under guided fluoroscopy, the entry site at the posterior cervical epidural space at T6-7 was marked with marking pen. I used Betadine for sterilization of the skin, sterile draping were applied. Using 25-gauge needle to infiltrate the skin with local anesthesia using preservative-free lidocaine 0.5% injected 2.5 mL at site of entry. Using guided fluoroscopy, accessed the the posterior epidural space using 20- gauge Touhy needles under midline approach to access cervical epidural posterior space at C6-7, accessed the site was assisted with lateral fluoroscopy, followed by using [id number] technique using preservative-free normal saline, negative aspiration of CSF and blood. Injected contrast solution [1] mL under live fluoroscopy which showed good spread of the contrast to the posterior epidural space and to the targeted area of the injection at[ C6-7]. Injected [3] mL of mixture of preservative-free lidocaine and Kenalog [80] mg for the procedure which showed appropriate spread in the epidural space. [place] was removed, pressure dressing were applied. Patient tolerated the procedure well and was taken to the recovery. Type of Anesthesia:: Local MAC Estimated Blood Loss (mL): None Description of Procedure: Cervical epidural steroid injection at T6-7 - Complications None
--- NOTE | 2019-03-29 14:26 | DCINST_ITS ---
- Discharge Diagnoses Current Active Problems: Current Active and Chronic Problems Cervical radiculopathy (Acute) Cervical radiculopathy due to degenerative joint disease of spine (Acute) DDD (degenerative disc disease), cervical (Acute) Reason(s) for Visit for Discharge Instructions: Receiving cervical epidural steroid injection to help with her neck pain You will use the following diet at home:: No restrictions Your food should be the consistency of: Regular Discharge Activity: Return to Normal Activity May shower in (days): 1 May resume sexual activity in: No Restrictions Weight Bearing Status: Weight bearing as tolerated Call your doctor if your incision/area has: Continuous Slow Oozing, Sudden Increased Bleeding, Increased Pain/ Swelling, Increased Redness, Foul Smelling Discharge, Swelling at the incision site Call your doctor if you observe: Fever of 101 or Higher, Coldness, Increased Pain, Numbness or Tingling, Calf discomfort, Uncontrolled pain Suture Line Care: Avoid Pulling/Pushing, Avoid Pinching/Bending Remove Dressing in (days):: 1 Cleanse incision/area with: Soap & Water Allergies/Adverse Reactions: Allergies bupropion [From Wellbutrin] Allergy (Verified 03/28/19 15:00) Swelling hydrocodone [From Vicodin] Adverse Reaction (Verified 03/28/19 15:01) Other headache risperidone [From Risperdal] Adverse Reaction (Verified 03/28/19 15:00) Other restlessness tramadol Adverse Reaction (Verified 03/28/19 15:00) Upset Stomach Medications to take at Discharge Doxepin HCl [Sinequan] 20 mg PO QHS 03/28/19 Ergocalciferol (Vitamin D2) [Vitamin D2] 50,000 unit PO QWEEK 03/28/19 Nabumetone 750 mg PO BID 03/28/19 Omeprazole 40 mg PO PRN PRN 03/28/19 Pregabalin [Lyrica] 75 mg PO 4X/DAY 03/28/19 Tizanidine HCl [Zanaflex] 4 mg PO TID 03/28/19 Primary Care Physician: Bee Penaloza MD [Primary Care Provider] - Test Results: Test results from this visit will be discussed in further detail at your follow- up appointment, if applicable. Please Follow Up With: Nanette Hylton MD
--- NOTE | 2019-03-29 14:27 | RAD_ITS ---
STUDY: X-RAY - CERVICAL SPINE REASON FOR EXAM: Female, 43 years old. CERVICAL SPINE EPIDURAL BLOCK 1 LEVEL C6-C7 IN OR TECHNIQUE: 2 fluoroscopic view(s) of the cervical spine were obtained. 17.7 seconds of fluoroscopy time. Dose 4.31 mGy COMPARISON: Routine cervical spine films of September 19, 2016. FINDINGS: An anterior view of the cervical spine demonstrates the needle marker directed to the midline at the T1 level below the existing anterior spinal fusion hardware present at C5, C6 and C7. RAD/Cerv Spine 2 or 3 Views IMPRESSION: Needle marker directed to the midline at the T1 level. Electronically Signed: Maty Powell MD at 19:28 EST , Service support ,
[2019-03-29] MEDS: Triamcinolone Acetonide 40 MG/ML Vial (14:38)
== END 2019-03-29 15:56 | disposition home or self-care (01) ==
LOC: SDC 12:00 → AC 12:01
PROVIDERS: Family Provider Internal Medicine; PCP Internal Medicine; Referring Provider Anesthesiology; Visit Provider Anesthesiology
PROC: 3E0S3BZ Introduction of Anesthetic Agent into Epidural Space, Percutaneous Approach (ICD-10-PCS; CPT 62320; principal; 2019-03-29 13:50)
DX: M47.22 Other spondylosis with radiculopathy, cervical region (principal); M50.123 Cervical disc disorder at C6-C7 level with radiculopathy; M50.222 Other cervical disc displacement at C5-C6 level; M47.27 Other spondylosis with radiculopathy, lumbosacral region; M51.27 Other intervertebral disc displacement, lumbosacral region; M51.37 Other intervertebral disc degeneration, lumbosacral region; M96.1 Postlaminectomy syndrome, not elsewhere classified; G89.29 Other chronic pain; M79.7 Fibromyalgia; G43.909 Migraine, unspecified, not intractable, without status migrainosus; K21.9 Gastro-esophageal reflux disease without esophagitis; F31.9 Bipolar disorder, unspecified; F41.9 Anxiety disorder, unspecified; F17.200 Nicotine dependence, unspecified, uncomplicated; Z79.899 Other long term (current) drug therapy
CPT/HCPCS: 62321; 64490; 72040; J7120

== ENCOUNTER 2019-04-19 13:19 | Day surgery (SDC) | payer MEDICAID, SELFPAY ==
[2019-03-29 12:26] VITALS: BMI 25.9
[2019-04-19] VITALS (7 sets, daily range): BP systolic 92–115; BP diastolic 64–69; PULSE 53–62; RESP 14–16; TEMP 36.5–36.8; O2SAT 97–100; BMI 26.3
[2019-04-19] MEDS: Lactated Ringers 1,000 ML 100 ML IV (13:55)
--- NOTE | 2019-04-19 14:26 | RAD_ITS ---
STUDY: X-RAY - LUMBAR SPINE REASON FOR EXAM: Female, 43 years old. LUMBAR EPIDURAL L3-4 TECHNIQUE: 4 view(s) of the lumbar spine were obtained. COMPARISON: None FINDINGS: Spot fluoroscopy images during lumbar epidural. Please see performing physician''s report for further details RAD/Spine 1 View Any Level IMPRESSION: As above Electronically Signed: Wilian Morales DO at 19:43 EST Tel , Service support ,
--- NOTE | 2019-04-19 14:38 | DCINST_ITS ---
- Discharge Diagnoses Current Active Problems: Back pain and lumbar radiculopathy due to degenerative disc disease Reason(s) for Visit for Discharge Instructions: Receiving lumbar epidural steroid injection at the level of L3-4 under fluoroscopy guidance You will use the following diet at home:: No restrictions Your food should be the consistency of: Regular Discharge Activity: Return to Normal Activity May shower in (days): 1 May resume sexual activity in: No Restrictions Weight Bearing Status: Weight bearing as tolerated, Full weight bearing, Partial weight bearing, Toe touch weight bearing, No weight bearing Call your doctor if your incision/area has: Continuous Slow Oozing, Sudden Increased Bleeding, Increased Pain/ Swelling, Increased Redness, Foul Smelling Discharge, Swelling at the incision site Call your doctor if you observe: Fever of 101 or Higher, Coldness, Increased Pain, Numbness or Tingling, Uncontrolled pain Suture Line Care: Avoid Pulling/Pushing, Avoid Pinching/Bending Remove Dressing in (days):: 1 Cleanse incision/area with: Soap & Water Allergies/Adverse Reactions: Allergies bupropion [From Wellbutrin] Allergy (Verified 03/28/19 15:00) Swelling hydrocodone [From Vicodin] Adverse Reaction (Verified 03/28/19 15:01) Other headache risperidone [From Risperdal] Adverse Reaction (Verified 03/28/19 15:00) Other restlessness tramadol Adverse Reaction (Verified 03/28/19 15:00) Upset Stomach Medications to take at Discharge Ergocalciferol (Vitamin D2) [Vitamin D2] 50,000 unit PO QWEEK 03/28/19 Nabumetone 750 mg PO BID 03/28/19 Omeprazole 40 mg PO PRN PRN 03/28/19 Pregabalin [Lyrica] 75 mg PO 4X/DAY 03/28/19 Tizanidine HCl [Zanaflex] 4 mg PO TID 03/28/19 Primary Care Physician: Bee Penaloza MD [Primary Care Provider] - Test Results: Test results from this visit will be discussed in further detail at your follow- up appointment, if applicable. Please Follow Up With: Nanette Hylton MD
--- NOTE | 2019-04-19 14:42 | PCM.OPRPT ---
Report of Operation Date of Procedure: 04/19/19 Pre-Operative Diagnosis: Lumbar disc disorders at the level of the L3-4 causing lumbar spine pain and lumbar radiculopathy Post-Operative Diagnosis: Lumbar degenerative disease and lumbar radiculopathy Surgery/Procedure Performed:: Lumbar epidural steroid injection at the level of the L3-4 interlaminar approach under fluoroscopy guidance Description of Surgical Findings:: Under sterile conditions. Patient placed in the prone position, pressure points were padded, patient was ready from the nursing and the anesthesia team. After identification of the side and the target area for the block under guided fluoroscopy, the entry site was marked with marking pen. I used Betadine for sterilization of the skin, sterile draping were applied. Using 25-gauge needle to infiltrate the skin with local anesthesia using preservative-free lidocaine 0.5% injected 2.5 mL at site of entry. Using guided fluoroscopy, accessed the the posterior epidural space using 18-gauge Touhy needles under midline approach, accessed the site was assisted with lateral fluoroscopy, followed by using [id number] technique using preservative-free normal saline, negative aspiration of CSF and blood. Injected contrast solution [2.5] mL under live fluoroscopy which showed good spread of the contrast to the posterior epidural space and to the targeted area of the injection at[ L3-4]. Injected [5] mL of mixture of preservative-free lidocaine and Kenalog [80] mg for the procedure which showed appropriate spread in the epidural space. [place] was removed, pressure dressing were applied. Patient tolerated the procedure well and was taken to the recovery. Type of Anesthesia:: Local MAC Estimated Blood Loss (mL): None - Complications None
[2019-04-19] MEDS: Triamcinolone Acetonide 40 MG/ML Vial (14:48)
== END 2019-04-19 15:38 | disposition home or self-care (01) ==
LOC: SDC 13:21 → AC 13:23
PROVIDERS: Family Provider Internal Medicine; PCP Internal Medicine; Referring Provider Anesthesiology; Visit Provider Anesthesiology
PROC: 3E0S3BZ Introduction of Anesthetic Agent into Epidural Space, Percutaneous Approach (ICD-10-PCS; CPT 62322; principal; 2019-04-19 14:00)
DX: M51.16 Intervertebral disc disorders with radiculopathy, lumbar region (principal); Z98.1 Arthrodesis status; F17.210 Nicotine dependence, cigarettes, uncomplicated; M96.1 Postlaminectomy syndrome, not elsewhere classified; M51.27 Other intervertebral disc displacement, lumbosacral region; M51.37 Other intervertebral disc degeneration, lumbosacral region; M50.123 Cervical disc disorder at C6-C7 level with radiculopathy; M50.222 Other cervical disc displacement at C5-C6 level; M54.08 Panniculitis affecting regions of neck and back, sacral and sacrococcygeal region; M47.812 Spondylosis without myelopathy or radiculopathy, cervical region
CPT/HCPCS: 62323; 64483; 72020; J7120

== ENCOUNTER 2019-04-22 15:00 | Outpatient (RCR) | payer MEDICAID, SELFPAY ==
--- NOTE | 2019-03-26 16:09 | HP.PTEVAL_ITS ---
Patient's Visit Information JONH SOMMER is a 43 year old F referred to Physical Therapy by Nanette Hylton MD with a diagnosis of POST LAMINECTOMY SYNDROME,CERVICAL DISC DISCPLACEMENT C6- 7. Date of Evaluation: 03/26/19 Physical Therapist: Ebenezer Oseguera, PT, Cert MDT, OCS - Visit Plan Frequency: 2x /Week Duration: 4 Weeks Plan: PT INTERVENTIONS MODALITIES ,GRADED CERVICAL POSTURAL EX'S,DLS ABD/BACK ,LE FLEXABLITY - Subjective Findings: This 43 y/o male presents to physical therapy with lumbar and cervical pain. Patient had lumbar laminectomy x2 2011,cervical fusion 2016. Patient has had pain in cervical and lumbar region.Symptoms worse in back with occasional leg symptoms. Aggraveting factiors bending,lifting,sitting. Alleviating factors walking ,standing ,rest.Location symmtrical occasional rigt > left. Symptoms located in cervical spine symmtrical. Aggraveting factors standing,lifting ,turning cervical spine job demands . Alleviating factors resting,laying down. C/O parathesia legs/hands. Patient has LARA, tinnutus/nausea. Bowel/bladder -. Coughing/sneezing-. Patient as had prior PT . Patient has had epidural injection . Patient seen pain management and wants to try pain stimulator. Patient is on MEDS lyrica,xanaflex,ant-inflammatory. Patient pain affects ADLS' ,job demands and housework tasks. Patient pain affects QOL and function. SOCIAL: single. VOCATION: [employer] - Pain Bilateral Back Pain Intensity (Out of 10): 6 Pain Intensity Range: 10 Bilateral Neck Pain Intensity (Out of 10): 6 Pain Intensity Range: 10 - Objective POSTURE: mild foward posture. GAIT: reciprocal pattern. NEURO: C/O parathesia/tingling ,reflexes C5-6-7 1/3,L3-4,L4-5,L5-S1 1/3. SYMMTRIES: align. PALPATION: tender UT/levator,SI/LS. MMT: BUE 4/5 grossly. CERVICAL ROM: flexion min loss,extension min/mod loss,lateral flexion/rotation mod loss. [employer]ATOR STRENGTH: 50# dynamoter. LUMBAR ROM: flexion mod/svere loss,extension mod/severe loss,side glides mod loss. MMT: quads/hams 4/5, 4-/5 hip flexion,ankle 4/5. FLEXABILITY: hams mod tight - Special Tests C/S Radiculapathy - Left Upper limb tension test: Negative C/S Radiculapathy - Right Upper limb tension test: Negative Sharp Lukas: Negative Vertebral Artery Test: Negative Alar Ligament Test: Negative L/S Slump test left side: Negative L/S Slump test right side: Negative L/S Left Straight Leg Raise: Negative L/S Right Straight Leg Raise: Negative - Goals Goal 1:: Independant with HEP Goal Time Frame: 4-6 Weeks Goal 2:: Improve posture /body mechanics Goal Time Frame: 4-6 Weeks Goal 3:: Patient to decrease neck and lumbar pain by 50% or> to improve function and QOL Goal Time Frame: 4-6 Weeks Goal 4:: Patient to improve cervical and lumbar ROM to improve function of recovery. Goal Time Frame: 4-6 Weeks Goal 5:: Patient improve back owestry score by 5 points or greater to improve QOL. Goal Time Frame: 4-6 Weeks - Rehabilitation Potential Physical Therapy Diagnosis: This patient has cervical and lumbar pain with h/o laminectomy x2 and cervical fusion, with decrease ROM,strength ,pain impairs function and ADL'S Rehabilitation Potential: Good - Anticipated Interventions Patient/Client Instruction: Educate patient on: Condition, Plan of Care For the Purpose of:: To decrease pain, To increase ROM, To improve muscle performance and motor function, To improve ability to perform ADL's, To increase tolerance to activity/condition/position, To improve performance and independence with ADL's, To improve ability of physical actions for home/community/work/leisure, To improve health of tissue, To decrease soft tissue restriction, To increase flexibility/ROM, To reduce risk of recurrence, To improve ability to perform tasks related to life management Therapeutic Exercise to Include: Strength training, Body mechanics, Postural training, Flexibilty training, Dynamic Lumbar Stabilization For the Purpose of:: To decrease pain, To increase ROM, To improve muscle performance and motor function, To increase tolerance to activity/condition/position, To improve ability of physical actions for home/community/work/leisure, To improve health of tissue, To decrease soft tissue restriction, To increase flexibility/ROM, To improve ability to perform tasks related to life management TENS: Yes IF ES: Yes Cryotherapy (ice pack, ice massage): Yes Thermo therapy (hot pack): Yes Ultrasound (thermal/non thermal): Yes For the Purpose of:: To decrease pain, To increase ROM, To improve nutrient delivery to tissue, To increase oxygenation perfusion, To improve health of tissue, To decrease soft tissue restriction Thank you for the opportunity to evaluate your patient. For Medicare and Medicare HMO plans, please review the plan of care and approve it. It will need to be FAXED BACK to us at [phone] for Medicare purposes. For Medicare only, by signing this I certify the plan of care. Please let me know if there are questions or concerns regarding this plan of care. Physician Signature: Date:
--- NOTE | 2019-05-31 13:13 | HP.PTDCNRP_ITS ---
HP - Discharge Summary (1) - Patient Information JONH SOMMER was seen in my office for initial evaluation on 03/26/19. The following Plan of Care was established for this patient: Initial Frequency: 2x /Week Initial Duration: 4 Weeks - Anticipated Interventions Patient/Client Instruction: Educate patient on: Condition, Plan of Care For the Purpose of:: To decrease pain, To increase ROM, To improve muscle perfor tisha and motor function, To improve ability to perform ADL's, To increase tolerance to activity/condition/position, To improve performance and independence with ADL's, To improve ability of physical actions for home/community/work/leisure, To improve health of tissue, To decrease soft tissue restriction, To increase flexibility/ROM, To reduce risk of recurrence, To improve ability to perform tasks related to life management Therapeutic Exercise to Include: Strength training, Body mechanics, Postural training, Flexibilty training, Dynamic Lumbar Stabilization For the Purpose of:: To decrease pain, To increase ROM, To improve muscle performance and motor function, To increase tolerance to activity/condition/position, To improve ability of physical actions for home/community/work/leisure, To improve health of tissue, To decrease soft tissue restriction, To increase flexibility/ROM, To improve ability to perform tasks related to life management TENS: Yes IF ES: Yes Cryotherapy (ice pack, ice massage): Yes Thermo therapy (hot pack): Yes Ultrasound (thermal/non thermal): Yes For the Purpose of:: To decrease pain, To increase ROM, To improve nutrient delivery to tissue, To increase oxygenation perfusion, To improve health of tissue, To decrease soft tissue restriction This patient was last seen in our office 04/22/19. Pertinent comments regarding their Physical therapy will appear below: Patient was seen for PT for Aquatic therapy for post laminectomy syndrome focusing on postural ex's,DLS,le flexablity ,thus is d/c. At this point I will be discontinuing this patient from physical therapy. I would be happy to see this patient again in the future if found appropriate by the physician. Thank you! Ebenezer Oseguera, PT, Cert MDT, OCS
== END 2019-04-22 19:00 | disposition home or self-care (01) ==
LOC: PT 15:00
PROVIDERS: Family Provider Internal Medicine; PCP Internal Medicine; Referring Provider Anesthesiology; Visit Provider Anesthesiology
DX: M96.1 Postlaminectomy syndrome, not elsewhere classified (principal); M50.223 Other cervical disc displacement at C6-C7 level
CPT/HCPCS: 97014; 97110; 97140; 97162; G0283

== ENCOUNTER 2019-05-31 12:38 | Day surgery (SDC) | payer MEDICAID, SELFPAY ==
[2019-04-19 13:45] VITALS: BMI 26.3
[2019-05-31] VITALS (7 sets, daily range): BP systolic 97–118; BP diastolic 67–84; PULSE 55–62; RESP 12–16; TEMP 36.6–36.9; O2SAT 95–100; BMI 27.6
[2019-05-31] MEDS: Lactated Ringers 1,000 ML 100 ML IV (13:29)
--- NOTE | 2019-05-31 14:35 | RAD_ITS ---
STUDY: X-RAY - LUMBAR SPINE REASON FOR EXAM: Female, 43 years old. BLOCK LUMBAR FACET L3-S1 RIGHT SIDE TECHNIQUE: 2 view(s) of the lumbar spine were obtained. COMPARISON: None FINDINGS: 2 fluoroscopic guided images of the lumbar spine were performed in the AP and lateral projection following placement of lumbar facet blocks at L3-4, L4-5 and L5-S1 as per clinical history. For more complete information recommend correlation with procedural notes. RAD/Lumbar Spine 2 or 3 Views IMPRESSION: Fluoroscopic guided right-sided lumbar facet blocks at L3-S1 Electronically Signed: Gordy Mcknight MD at 16:08 EST , Service support ,
[2019-05-31] MEDS: Triamcinolone Acetonide 40 MG/ML Vial (14:42)
[2019-05-31] MEDS: Bupivacaine 0.25% 30 ML Vial (14:42)
--- NOTE | 2019-05-31 14:49 | DCINST_ITS ---
- Discharge Diagnoses Current Active Problems: Lumbar facet spondylosis, lower back pain Reason(s) for Visit for Discharge Instructions: Receiving right-sided lumbar facet injection under fluoroscopy guidance You will use the following diet at home:: No restrictions Your food should be the consistency of: Regular Your liquids should be the consistency of: Regular/Thin Discharge Activity: Return to Normal Activity May shower in (days): 1 May resume sexual activity in: No Restrictions Weight Bearing Status: Weight bearing as tolerated Call your doctor if your incision/area has: Continuous Slow Oozing, Sudden Increased Bleeding, Increased Pain/ Swelling, Increased Redness, Foul Smelling Discharge, Swelling at the incision site Call your doctor if you observe: Fever of 101 or Higher, Coldness, Increased Pain, Numbness or Tingling, Increased palpitations (irregular heartbeat), Uncontrolled pain Suture Line Care: Avoid Pulling/Pushing, Avoid Pinching/Bending Remove Dressing in (days):: 1 Cleanse incision/area with: Soap & Water Allergies/Adverse Reactions: Allergies bupropion [From Wellbutrin] Allergy (Verified 05/31/19 13:07) Swelling hydrocodone [From Vicodin] Adverse Reaction (Verified 05/31/19 13:07) Other headache risperidone [From Risperdal] Adverse Reaction (Verified 05/31/19 13:07) Other restlessness tramadol Adverse Reaction (Verified 05/31/19 13:07) Upset Stomach Medications to take at Discharge Ergocalciferol (Vitamin D2) [Vitamin D2] 50,000 unit PO QWEEK 03/28/19 Nabumetone 750 mg PO BID 03/28/19 Omeprazole 40 mg PO PRN PRN 03/28/19 Pregabalin [Lyrica] 75 mg PO 4X/DAY 03/28/19 Tizanidine HCl [Zanaflex] 4 mg PO TID 03/28/19 Primary Care Physician: Bee Penaloza MD [Primary Care Provider] - Test Results: Test results from this visit will be discussed in further detail at your follow- up appointment, if applicable. Please Follow Up With: Nanette Hylton MD
--- NOTE | 2019-05-31 14:50 | OP.PCM_ITS ---
Problem List (1) Spondylosis without myelopathy or radiculopathy, lumbar region Status: Acute (2) Spondylosis without myelopathy or radiculopathy, lumbar region Status: Acute (3) Low back pain Status: Acute (4) Low back pain Status: Acute Report of Operation Date of Procedure: 05/31/19 Pre-Operative Diagnosis: Lumbar facet spondylosis Post-Operative Diagnosis: Same Surgery/Procedure Performed:: Right sided lumbar facets median nerve branch block at the level of the right side L3-4 L4-5 5 S1 under fluoroscopy guidance Description of Surgical Findings:: Under sterile conditions. Patient placed in the prone position, pressure points were padded, patient was ready from the nursing and the anesthesia team. After identification of the side and the target area for the block under guided fluoroscopy, the entry site was marked with marking pen. I used Betadine for sterilization of the skin, sterile draping were applied. Using 25-gauge needle to infiltrate the skin with local anesthesia using preservative-free lidocaine 0.5% injected 2.5 mL at each site of entry. Using oblique fluoroscopy, accessed the right medial nerve branch supplying the [right] lumbar facets L3-4, L4-5, L5-S1 using 22-gauge spinal needle. After confirmation of appropriate needle placement to the targeted area with AP and lateral fluoroscopy, injected 2.5 mL mixture of preservative-free Marcaine 0.5% and Kenalog [20] mg at each site. [place] was removed, pressure dressing were applied. Patient tolerated the procedure well and was taken to the recovery. Type of Anesthesia:: Local MAC - Complications None
== END 2019-05-31 15:36 | disposition home or self-care (01) ==
LOC: SDC 12:39 → AC 12:42
PROVIDERS: PCP Internal Medicine; Referring Provider Anesthesiology; Visit Provider Anesthesiology
PROC: 3E0T3BZ Introduction of Anesthetic Agent into Peripheral Nerves and Plexi, Percutaneous Approach (ICD-10-PCS; CPT 64493; principal; 2019-05-31 14:10)
DX: M47.816 Spondylosis without myelopathy or radiculopathy, lumbar region (principal); F17.200 Nicotine dependence, unspecified, uncomplicated; M50.30 Other cervical disc degeneration, unspecified cervical region; M47.812 Spondylosis without myelopathy or radiculopathy, cervical region; M54.08 Panniculitis affecting regions of neck and back, sacral and sacrococcygeal region; M50.222 Other cervical disc displacement at C5-C6 level; M50.123 Cervical disc disorder at C6-C7 level with radiculopathy; M79.2 Neuralgia and neuritis, unspecified; M51.37 Other intervertebral disc degeneration, lumbosacral region; M51.27 Other intervertebral disc displacement, lumbosacral region; M96.1 Postlaminectomy syndrome, not elsewhere classified
CPT/HCPCS: 64493; 64494; 64495; 64483; 72100; J7120

== ENCOUNTER → 2019-08-15 10:15 | Outpatient (CLI) | payer MEDICAID, SELFPAY ==
[2019-05-31 13:15] VITALS: BMI 27.6
--- NOTE | 2019-08-15 10:18 | RAD_ITS ---
STUDY: X-RAY - CERVICAL SPINE REASON FOR EXAM: Female, 43 years old. Neck pain, headaches, bilateral upper extremity pain/tingling, previous fusion TECHNIQUE: 5 view(s) of the cervical spine were obtained including oblique views. COMPARISON: Comparison is made with prior study dated March 29, 2019. FINDINGS: Normal anterior atlantoaxial articulation. Normal odontoid process. There is straightening of the normal cervical lordosis. The patient is status post anterior fusion at the C5-C6 and C6-C7 levels with disc spacers. Mild degree of anterior spondylosis at the C4-C5 level. Normal visualized intervertebral neuroforamina. The soft tissue structures are unremarkable. RAD/Cerv Spine 4 or 5 Views IMPRESSION: Status post C5-C6 and C6-7 anterior fusion. Straightening of the normal cervical lordosis. Electronically Signed: Ramon Warren, at 11:25 EDT , Service support ,
== END ==
PROVIDERS: PCP Internal Medicine; Referring Provider Anesthesiology; Visit Provider Anesthesiology
DX: M54.2 Cervicalgia (principal)
CPT/HCPCS: 72050

== ENCOUNTER → 2019-11-05 13:51 | Outpatient (CLI) | payer MEDICAID, SELFPAY ==
[2019-05-31 13:15] VITALS: BMI 27.6
== END ==
PROVIDERS: PCP Internal Medicine; Referring Provider Nurse Practitioner Primary Care; Visit Provider Nurse Practitioner Primary Care
DX: R00.2 Palpitations (principal)
CPT/HCPCS: 93225; 93226

== ENCOUNTER 2019-11-29 12:08 | Day surgery (SDC) | payer MEDICAID, SELFPAY ==
[2019-05-31 13:15] VITALS: BMI 27.6
[2019-11-29] VITALS (8 sets, daily range): BP systolic 97–104; BP diastolic 52–71; PULSE 58–77; RESP 15–16; TEMP 36.1–36.8; O2SAT 98–100; BMI 28.0
[2019-11-29] MEDS: Lactated Ringers 1,000 ML 100 ML IV (12:45)
[2019-11-29] MEDS: Cefazolin 1 GM/50 ML BAG IV (13:07)
--- NOTE | 2019-11-29 14:00 | RAD_ITS ---
STUDY: X-RAY - LUMBAR SPINE REASON FOR EXAM: Female, 44 years old. INSERTION OF SPINAL CORD STIM. TECHNIQUE: 4 view(s) of the lumbar spine were obtained. COMPARISON: None FINDINGS: Fluoroscopy of the thoracic spine was utilized and operating room during dorsal, spinal stenotic millimeter placement.. RAD/Lumbar Spine 2 or 3 Views IMPRESSION: Fluoroscopy during surgery. Electronically Signed: Neftali Russell MD at 16:06 EDT Tel , Service support ,
[2019-11-29] MEDS: Bupivacaine Mpf 0.5% 30 ML VIAL (14:24)
--- NOTE | 2019-11-29 15:42 | DCINST_ITS ---
- Discharge Diagnoses Current Active Problems: Chronic lower back pain and lumbar radiculopathy You will use the following diet at home:: No restrictions Your food should be the consistency of: Regular Discharge Activity: Return to Normal Activity, May Drive, May Not Drive, May not drive while taking narcotic pain medications. Return to work on:: 12/06/19 May shower in (days): 4 May resume sexual activity in: No Restrictions, 10-14 days Ice area for (Minutes): 2 Weight Bearing Status: Weight bearing as tolerated, Partial weight bearing Call your doctor if your incision/area has: Continuous Slow Oozing, Sudden Increased Bleeding, Increased Pain/ Swelling, Foul Smelling Discharge, Swelling at the incision site Call your doctor if you observe: Fever of 101 or Higher, Coldness, Increased Pain, Numbness or Tingling, Change in Color, Inability to urinate, Inability to have a bowel movement, Calf discomfort, Uncontrolled pain Suture Line Care: Avoid Pulling/Pushing, Avoid Pinching/Bending Change Dressing in (Days):: 3 Remove Dressing in (days):: 3 Cleanse incision/area with: Keep Dressing Clean & Dry Allergies/Adverse Reactions: Allergies adhesive tape Allergy (Verified 11/29/19 12:30) Rash bupropion [From Wellbutrin] Allergy (Verified 11/29/19 12:30) Swelling hydrocodone [From Vicodin] Adverse Reaction (Verified 11/29/19 12:30) Other headache risperidone [From Risperdal] Adverse Reaction (Verified 11/29/19 12:30) Other restlessness tramadol Adverse Reaction (Verified 11/29/19 12:30) Upset Stomach Medications to take at Discharge Ergocalciferol (Vitamin D2) [Vitamin D2] 50,000 unit PO MOTH 03/28/19 Omeprazole 40 mg PO BID 03/28/19 Tizanidine HCl [Zanaflex] 4 mg PO TID 03/28/19 Desvenlafaxine Succinate [Pristiq ER] 25 mg PO DAILY 11/22/19 Erenumab-Aooe [Aimovig Autoinjector] 70 mg SQ QMONTH 11/22/19 Hydroxyzine Pamoate [Vistaril] 50 mg PO QHS 11/22/19 Oxycodone HCl/Acetaminophen [Oxycodon-Acetaminophen 7.5-325] 1 ea PO DAILY 11/22/19 traZODone [Desyrel] 100 mg PO QHS 11/22/19 Primary Care Physician: Bee Penaloza MD [Primary Care Provider] - Test Results: Test results from this visit will be discussed in further detail at your follow- up appointment, if applicable. Please Follow Up With: Nanette Hylton MD
--- NOTE | 2019-11-29 15:45 | PCM.OPRPT ---
Problem List (1) Postlaminectomy syndrome, not elsewhere classified Status: Acute (2) Low back pain Status: Acute (3) Radiculopathy, lumbar region Status: Acute (4) Other intervertebral disc degeneration, lumbar region Status: Acute Report of Operation Date of Procedure: 11/29/19 Pre-Operative Diagnosis: Chronic lower back pain, lumbar degenerative disc disease, lumbar radiculopathy, lumbar postlaminectomy syndrome. Post-Operative Diagnosis: Same Surgery/Procedure Performed:: 1. Spinal cord stimulator permanent implant/[employer], nonrechargeable battery, proclaim XR,. #2. implant 2x 8 contacts leads implanted in the posterior epidural space with the tip of the right lead at the top of the T8, tip of the left lead to the upper third of the T8, the leads covering T8, T9 and the top of T10 and the posterior epidural space. 3. Physician fluoroscopy guidance for the procedure 1 hour. 4. Complex programming intraoperatively 1 hour Description of Surgical Findings:: After informed consent about the procedure, review prior care for the presenting complaint of lower back pain and lower extremity radicular pain. Patient had successful spinal cord stimulator trial and decision was made to proceed with a permanent implant based on patient response to the trial period. Patient taken to OR 5, placed to the prone position pressure points were padded appropriate monitoring per anesthesia team were applied patient was safe to administer anesthesia per anesthesia team. Anesthesia provided is general anesthesia/monitored anesthesia care with no intubation. After appropriate fluoroscopy guidance and marking of the targeted area to the entry at the level of L2-3, appropriate draping was applied, sterile preparation using DuraPrep to both incision in the mid lumbar spinal area at the level of the L2-3, and of the right gluteal region for the IPG placement. Incision started , used 25-gauge needle for skin infiltration with local anesthesia using preservative-free lidocaine 0.5% mixture was Marcaine 0.25% was 1-200,000 epinephrine. Using #10 blade, made 2.5 inch longer to the incision, longitudinal, at the level of L2-L3 at the midline using #10 blade. Incision was completed using cauterization at level 30?, coagulation at levels 30? to ensure no bleeding spots. After proper exploration of the area, used a 14-gauge curved tip Touhy needle to access at 45? angle to the posterior epidural space at the entry point L1 to at midline confirmed with AP and lateral fluoroscopy and [id number] technique using preservative-free normal saline and glass syringes. I have placed to needles at the L1-2 posterior epidural space and noted aspiration was negative for CSF and blood. I passed TWO # 8 contacts leads, [[employer] system], they both passed parralel to each other through the 2 needles in the posterior epidural space confirmed with lateral fluoroscopy and AP fluoroscopy at the midline until placed smoothly at the posterior epidural space with the tip of the lead at the top of T8 vertebrae. Using [[employer] wired] cad programmer I have placed the cad programmer on the leads insured and patient was awakened throughout the placement of the wires and placement of the leads, given patient 45 - 60 minutes complex programming for the different painful target areas until the patient verified appropriate coverage over the painful areas in the lower back and both legs using contacts in the middle of both leads. After patient has expressed satisfaction with the placement patient was put back to anesthesia for sedation. I disconnected the cad programmer from the leads followed by pulling the 2 needles and the guidewire from the leads under live fluoroscopy and kept placement of the 2 leads at the posterior epidural space at the T8 and T9 as initially placed. At that time we used two anchors to anchor the [address] confirmed with fluoroscopy to ensure the leads stayed in place at each step followed by using 2 silk sutures to anchor the 2 anchors was then leads into the posterior longitudinal ligaments. IPG pocket was performed on the [ right] gluteal region below the belt line after identification was fluoroscopy, 2.5 inch transverse incision was made after local infiltration with lidocaine preservative-free 0.5% and Marcaine quarter percent infiltrated with 10 cc and using incision by #10 blade made the pocket to accommodate the rechargeable battery at place. I used tunneling device between the IPG pocket and the midline lumbar incision to tunnel the 2 leads to the IPG followed by anchoring the 2 leads into the battery and using hex wrench to tighten the placement, this was confirmed with another complex programming and impedance was completed to be appropriate at all contacts. After ensuring good placement of the system, I have used to silk suture to tighten the battery in place. We have used sterile irrigation to irrigate both pockets, followed by closure with the deep layer with 2-0 Vicryl and closure of the superficial layer with subcuticular closure with Vicryl sutures. We applied dressing using Dermabond, Steri-Strips at both insert incisions followed by covering with transparent draping. Patient tolerated the procedure well taken to recovery and prepared to be discharged home once meets anesthesia criteria, patient was given the postoperative instruction and the follow-up procedure including antibiotic coverage instructions.
== END 2019-11-29 17:09 | disposition home or self-care (01) ==
LOC: SDC 12:08 → AC 12:09
PROVIDERS: Anesthesiology; PCP Internal Medicine; Referring Provider Anesthesiology; Visit Provider Anesthesiology
PROC: (CPT 63685; principal; 2019-11-29 13:15)
DX: M96.1 Postlaminectomy syndrome, not elsewhere classified (principal); M51.16 Intervertebral disc disorders with radiculopathy, lumbar region; G89.29 Other chronic pain; M54.5 Low back pain; M79.10 Myalgia, unspecified site
CPT/HCPCS: 63650; 63685; 72100; 76000; 87635; 94799; C1713; C1778; J7120; J2405; J3490; U0003

== ENCOUNTER → 2019-12-31 10:23 | Outpatient (CLI) | payer MEDICAID, SELFPAY ==
[2019-05-31 13:15] VITALS: BMI 27.6
[2019-11-29 12:31] VITALS: BMI 28.0
--- NOTE | 2019-12-31 10:25 | US_ITS ---
STUDY: ABDOMINAL ULTRASOUND - RIGHT UPPER QUADRANT REASON FOR VISIT: Female, 44 years old MIDLINE AND LLQ PAIN -- VOMITING TECHNIQUE: Ultrasound evaluation of the right upper quadrant was performed with real-time and static castro-scale imaging. TECHNICAL QUALITY: Adequate. COMPARISON: None. FINDINGS: Liver: The liver measures 15.8 cm. There is normal echogenicity of the liver. The bile ducts are within normal limits. There is hepatic color flow. The direction of portal flow is hepatopetal. There is no demonstrated mass lesion. Gallbladder: The patient is status post cholecystectomy. Common Bile Duct (C.B.D.): The common bile duct measures 6.2 mm. Pancreas: Normal size of the head, body and tail of the pancreas. There is normal echogenicity of the pancreas. There is no demonstrated pancreatic mass or cyst. Right Kidney: Normal size of the right kidney. The right kidney measures 10.1 cm x 5.5 cm x 3.9 cm. Normal renal cortex. The right cortex measures 1.0 cm. There is no demonstrated renal mass or cyst. There is no right hydronephrosis. US/Abdomen Limited IMPRESSION: Status post cholecystectomy. No acute abnormality is seen. Electronically Signed: Ramon Warren, at 11:31 EDT , Service support ,
== END ==
PROVIDERS: PCP Internal Medicine; Referring Provider Nurse Practitioner Adult Health; Visit Provider Nurse Practitioner Adult Health
DX: R10.11 Right upper quadrant pain (principal); R10.12 Left upper quadrant pain
CPT/HCPCS: 76705

== ENCOUNTER → 2020-01-28 | Outpatient (CLI) | payer MEDICAID, SELFPAY ==
[2019-11-29 12:31] VITALS: BMI 28.0
--- NOTE | 2020-01-28 17:04 | STRESSREP ---
Stress Test Report Date: 01/28/2020 Procedure: Pharmacologic stress nuclear imaging study Indications: chest pain Consent: Per the patient Procedure: The patient underwent pharmacologic (Regadenoson) evaluation with a peak heart rate of 122 beats per minute (68%predicted maximal heart rate) and a peak blood pressure of 122/88 mmHg. The baseline ECG demonstrated sinus bradycardia. The peak pharmacologic ECG demonstrated approximately [address] segment depression in leads II, III, aVF and approximately [address] segment depression in leads V3 through V6 with subsequent resolution towards baseline in recovery. There were no cardiac dysrhythmias pretest, during pharmacologic infusion, or recovery. There was no complaint of chest discomfort during pharmacologic infusion or recovery. The examination was discontinued secondary to completion of protocol. Impression: 1. Pharmacologic (Regadenoson) evaluation 2. Peak pharmacologic ECG with approximately [address] segment depression in leads II, III, aVF and approximately [address] segment depression in leads V3 through V6 with subsequent resolution towards baseline in recovery. 3. There were no cardiac dysrhythmias pretest, during pharmacologic infusion, or recovery. 4. Nuclear images pending Myocardial perfusion imaging study: Technique: The patient was injected with 11.1 millicuries of technetium 99m Cardiolite and subsequently rest SPECT Cardiolite nuclear imaging was obtained in the horizontal long, vertical long, and short axis views. The patient underwent pharmacologic (Regadenoson) evaluation with a peak heart rate of 122 beats per minute (68% percent predicted maximal heart rate) and a peak blood pressure of 122/88 mmHg. The patient was injected with 33.0 millicuries of technetium 99m Cardiolite and subsequently stress SPECT Cardiolite nuclear imaging was obtained in the horizontal long, vertical long, and short axis views. A gated Cardiolite study at peak stress was not obtained. Interpretation: Rest and stress SPECT Cardiolite nuclear imaging status post realignment, normalization, and attenuation correction demonstrate the appearance of relatively uniform tracer uptake and myocardial perfusion at rest and status post stress there is an area of diminished tracer uptake in portions of the distal anterior and anterior apical segments. A gated Cardiolite study at peak stress was not obtained. Impression: 1. Rest and stress by car nuclear imaging demonstrate myocardial perfusion status post stress appearing compatible with an area of stress-induced myocardial ischemia in portions of the distal anterior/anterior apical segments. 2. A gated Cardiolite study at peak stress was not obtained. This note was generated with [employer] software. It may contain incorrect words, spelling, and punctuation that were not noted in checking the note before signing.
== END | disposition home or self-care (01) ==
LOC: CVS 06:53
PROVIDERS: PCP Internal Medicine
DX: R07.89 Other chest pain (principal); R00.2 Palpitations; R94.31 Abnormal electrocardiogram [ECG] [EKG]
CPT/HCPCS: 78452; 93017; A9500; A4216; J2785

== ENCOUNTER 2020-03-18 11:00 | Outpatient (RCR) | payer MEDICAID, SELFPAY ==
[2019-11-29 12:31] VITALS: BMI 28.0
--- NOTE | 2020-03-03 09:04 | HP.PTEVAL_ITS ---
Patient's Visit Information JONH SOMMER is a 44 year old F referred to Physical Therapy by Dr. Nanette Hylton MD with a diagnosis of LOW BACK PAIN,CERVICALALGIA. Date of Evaluation: 03/03/20 Physical Therapist: Ebenezer Oseguera, PT, Cert MDT, OCS - Visit Plan Frequency: 2x /Week Duration: 4 Weeks Plan: PT INTERVENTIONS AQUATIC THERAPY FOR CERVICAL/LUMBAR ROM,POSTURAL EX'S,DLS ,UE/LE STRENGTHENING - Subjective This 44 y/o female presents to physical therapy low back pain and cervicalagia. Patient has has had LBP for many years,with having s/p laminectomy x2 12 years,leakage spinal closure .Patient also has had cervical fusion 2017. Patient seen pain management about one year ,had epidural injections several and most recently had spinal stimualtor implant Dec [address] wanted PT to get stronger and pain.Pain stimulator helps. Location symtrical LS to lateral hips to anterior thighs. Aggravating factors sitting,bending,lifting ,walking and standing. Allevating factors pain MEDS ,rest,pain stimulator.Denies parathesia/tingling -. Coughing/sneezing -. Bowel/bladder-. Patient pain affect sleeping. Pain MEDS oxycodine,muscle relaxer. Pain in cervical occiput to UT . Aggraveting factors turning,sitting ,lifting. Work demands aggravetes symptoms . Pateint has LARA ,denies dizzness/nausea/tinnitus. Patient pain affects ADL'S ,job demnads and housework tasks. Patient has had recently injection in neck. Patients symptoms affects QOL. 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 SOCIAL: single - Pain Bilateral Neck Pain Intensity (Out of 10): 3 Pain Intensity Range: 10 Bilateral Back Pain Intensity (Out of 10): 9 Pain Intensity Range: 10 - Objective POSTURE: mild foward posture. GAIT: reciprocal pattern. PALPATION: unremarkable. SYYMTRIES: align. NEURO: c/o parathsia in hands,reflexes C5-6-7 2/3,L3-4,L4-5,L5-S1 2/3. PALAPTION: tender UT /levator,L-S spine. BUE AROM: WFL. MMT: quads/hams 4/5,hip flexion 4-/5,hip abd 4-/5,ankle 4/5,BUE grossly 4/5 ,shoulders 4-/5. FLEXABLITY: hams min tight,piriformis mod tight. CERVICAL ROM: flexion min loss,extension min/mod loss,lateral flexion/rotation mod loss,. LUMBAR ROM: min mod loss,extension mod/severe loss - Special Tests C/S Radiculapathy - Left Upper limb tension test: Negative C/S Radiculapathy - Right Upper limb tension test: Negative Sharp Lukas: Positive Vertebral Artery Test: Positive Alar Ligament Test: Positive L/S Slump test left side: Negative L/S Slump test right side: Negative L/S Left Straight Leg Raise: Negative L/S Right Straight Leg Raise: Negative - Goals Goal 1:: I with Aquatic Therapy program Goal Time Frame: 4-6 Weeks Goal 2:: Patient to decrease lumbar and cervical pain by 40% or > to improve QOL. Goal Time Frame: 4-6 Weeks Goal 3:: Patient to improve posture/body mechanics for ADLS' Goal Time Frame: 4-6 Weeks Goal 4:: Patient to improve cervical and lumbar ROM for function of recovey Goal Time Frame: 4-6 Weeks Goal 5:: Patient to improve back owestry score by 5 points or > to improve QOL Goal Time Frame: 4-6 Weeks - Rehabilitation Potential Physical Therapy Diagnosis: This patient has multiple comorbities as well as h/o of lumbar surgery x2,cervical fusion and recent pain stimulator implant in lumbar along with h/o fibromalagia. Pateint has pain with movement and postion in cervical and lumbar spine ,poor lumbar and cevical ROM thus affects ADL's and housework tasks. Rehabilitation Potential: Good - Anticipated Interventions Patient/Client Instruction: Educate patient on: Condition, Plan of Care For the Purpose of:: To decrease pain, To increase ROM, To improve muscle performance and motor function, To improve ability to perform ADL's, To increase tolerance to activity/condition/position, To improve performance and independence with ADL's, To improve ability of physical actions for home/community/work/leisure, To improve health of tissue, To decrease soft tissue restriction, To increase flexibility/ROM, To improve ability to perform tasks related to life management Therapeutic Exercise to Include: Strength training, Postural training, Flexibilty training, In an aquatic setting, Dynamic Lumbar Stabilization For the Purpose of:: To decrease pain, To increase ROM, To improve muscle performance and motor function, To increase tolerance to activity/condition/position, To improve performance and independence with ADL's, To improve ability of physical actions for home/community/work/leisure, To improve health of tissue, To decrease soft tissue restriction, To improve ability to perform tasks related to life management Thank you for the opportunity to evaluate your patient. For Medicare and Medicare HMO plans, please review the plan of care and approve it. It will need to be FAXED BACK to us at [phone] for Medicare purposes. For Medicare only, by signing this I certify the plan of care. Please let me know if there are questions or concerns regarding this plan of care. Physician Signature: Date:
--- NOTE | 2020-09-02 09:44 | HP.PTDCSUM ---
It has been my pleasure to treat JONH SOMMER referred by Dr. Nanette Hylton MD, with the diagnosis of LOW BACK PAIN,CERVICALALGIA for a total of 3 visit(s). Discharge Date: Please see the following information for a summary of their discharge status. Subjective: Thinks the cold weather is making her feel worse. Determined to come today even if she felt awful (d/t missing last appt) asking her boyfriend for accountability. States she was in bed all day (when she missed her last appt). Bilateral Neck Pain Intensity (Out of 10): 9 Bilateral Back Pain Intensity (Out of 10): 9 Objective/Function: Reviewed new HEP postural corrections with emphasis on neutral spine. Demo'ing excessive LB ext throughout most amb variations - cues to engagement abdominal to avoid this. Improved awareness to neutral spine noted today, particularly in NWBing. Most pain relief reported in NWBing/reduced WBing - using this to rest between sets/all tasks today d/t elevated pain levels. Goal 1:: I with Aquatic Therapy program Goal 2:: Patient to decrease lumbar and cervical pain by 40% or > to improve QOL. Goal 3:: Patient to improve posture/body mechanics for ADLS' Goal 4:: Patient to improve cervical and lumbar ROM for function of recovey Goal 5:: Patient to improve back owestry score by 5 points or > to improve QOL Plan: *Progress hip flexor/quad stretch to HEP with written descriptions. *Add wall push-ups and STSs/squats next. *Add piriformis stretch. PT INTERVENTIONS AQUATIC THERAPY FOR CERVICAL/LUMBAR ROM,POSTURAL EX'S,DLS ,UE/LE STRENGTHENING If there are questions or concerns regarding this patient's physical therapy, please feel free to call me at [phone]. Thank you for the referral of this patient. Sincerely, Ebenezer Oseguera, PT, Cert MDT, OCS
== END 2020-03-18 19:00 | disposition home or self-care (01) ==
LOC: PT 11:00
PROVIDERS: PCP Internal Medicine; Referring Provider Anesthesiology; Visit Provider Anesthesiology
DX: M54.5 Low back pain (principal); M50.320 Other cervical disc degeneration, mid-cervical region, unspecified level
CPT/HCPCS: 97113; 97162

== ENCOUNTER → 2020-05-01 11:58 | Outpatient (CLI) | payer MEDICAID, SELFPAY ==
[2019-11-29 12:31] VITALS: BMI 28.0
[2020-05-01 15:05] LABS: Amphetamine Urine VISTA NEGATIVE (<1000 ng/mL); Barbiturate Urine VISTA NEGATIVE (< 200 ng/mL); Benzodiazepine Urine VISTA NEGATIVE (< 200 ng/mL); Cocaine Urine VISTA NEGATIVE (< 300 ng/mL); Ecstacy Urine VISTA NEGATIVE (< 500 ng/mL); Methadone Urine VISTA NEGATIVE (< 300 ng/mL); PCP Urine VISTA NEGATIVE (< 25 ng/mL); THC Urine VISTA POSITIVE (< 50 ng/mL); Vista UDS pH Range 7
== END ==
PROVIDERS: PCP Internal Medicine; Referring Provider Anesthesiology; Visit Provider Anesthesiology
DX: F11.20 Opioid dependence, uncomplicated (principal)
CPT/HCPCS: 80307

== ENCOUNTER 2020-09-04 12:55 | Day surgery (SDC) | payer MEDICAID, SELFPAY ==
[2019-11-29 12:31] VITALS: BMI 28.0
[2020-09-04 13:16] VITALS: BP 109/61; PULSE 83; RESP 16; TEMP 37.3; O2SAT 100; BMI 28.8
--- NOTE | 2020-09-04 13:42 | DCINST_ITS ---
Discharge Instructions Diet Discharge Diet: No restrictions, Low fat / Low cholesterol and 1800 Calorie Control Diet Activity Discharge Activity: Return to Normal Activity, May Not Drive, May not drive while taking narcotic pain medications. and May Shower Return to work on:: 09/08/20 May shower in (days): 1 May resume sexual activity in: No Restrictions Weight Bearing Status: Weight bearing as tolerated and Full weight bearing Dressing / Incision Call your doctor if your incision/area has: Continuous Slow Oozing, Sudden Incre ased Bleeding, Increased Pain/ Swelling, Increased Redness, Foul Smelling Discharge and Swelling at the incision site Call your doctor if you observe: Fever of 101 or Higher, Coldness, Increased Pain, Numbness or Tingling, Change in Color, Inability to urinate, Inability to have a bowel movement, Increased palpitations (irregular heartbeat), Calf discomfort and Uncontrolled pain Suture Line Care: Avoid Pulling/Pushing and Avoid Pinching/Bending Change Dressing in: 1 day Remove Dressing in: 1 day Cleanse incision/area with: Soap & Water and Keep Dressing Clean & Dry Follow Up Care Please Follow Up With: Nanette Hylton MD When: 2 to 4-week Test Results: Test results from this visit will be discussed in further detail at your follow-up appointment, if applicable. Discharge Plan Admission Primary Reason for Your Visit: To receive lumbar facet block Attending Provider: Nanette Hylton Primary Care Provider: Bee Penaloza Instructions Patient Instructions: Osteoarthritis: Managing Pain, ED Back Exercises, Lumbar, ED Back Pain (Acute or Chronic) Discharge Orders/Prescriptions Prescriptions: Continued omeprazole 40 MG capsule,delayed release(DR/EC) 40 mg PO BID RF: 0 ergocalciferol (vitamin D2) 50,000 UNIT capsule 50,000 unit PO MOTH RF: 0 oxycodone-acetaminophen 1 EACH tablet 7.5 tab PO BID RF: 0 desvenlafaxine succinate 25 MG tablet extended release 24 hr 50 mg PO QHS RF: 0 amitriptyline 10 mg Tablet 10 mg PO QHS RF: 0 budesonide 3 mg Capsule,Delayed,Extend.Release 3 mg PO TID RF: 0 metaxalone 800 mg Tablet 800 mg PO TID RF: 0 Referrals / Follow Up: Bee Penaloza MD [Primary Care Provider] - Nanette Hylton MD [STAFF PHYSICIAN] - Disposition Disposition (needs filled in before D/C Order can be placed): Home, self care
--- NOTE | 2020-09-04 13:45 | PCM.OPRPT ---
Problems Associated Problem List Diagnoses (1) Low back pain: (2) Low back pain: (3) Spondylosis without myelopathy or radiculopathy, lumbar region: (4) Spondylosis without myelopathy or radiculopathy, lumbar region: Report of Operation Date of Procedure: 09/04/20 Pre-Operative Diagnosis: Lumbar facet spondylosis Post-Operative Diagnosis: Same Surgery/Procedure Performed:: Lumbar facets median nerve branch block at the level of the L3-4, L4-5, L5-S1 Description of Surgical Findings:: Under sterile conditions. Patient placed in the prone position, pressure points were padded, patient was ready from the nursing and the anesthesia team. After identification of the side and the target area for the block under guided fluoroscopy, the entry site was marked with marking pen. I used Betadine for sterilization of the skin, sterile draping were applied. Using 25-gauge needle to infiltrate the skin with local anesthesia using preservative-free lidocaine 0.5% injected 2.5 mL at each site of entry. Using oblique fluoroscopy, accessed the left medial nerve branch supplying the left lumbar facets L3-4, L4-5, L5-S1 using 22-gauge spinal needle. After confirmation of appropriate needle placement to the targeted area with AP and lateral fluoroscopy, injected 2.5 mL mixture of preservative-free Marcaine 0.5% and Kenalog [20] mg at each site. [place] was removed, pressure dressing were applied. Patient tolerated the procedure well and was taken to the recovery. Surgeon: Nanette Hylton Type of Anesthesia: Local MAC and Local Estimated Blood Loss (mL): None Complications No complications Admit VTE Documentation VTE Present on Admission: No VTE Mechan Device Prophylaxis: None Reason prophylaxis not ordered:: Procedure Not Indicated
--- NOTE | 2020-09-04 14:00 | RAD_ITS ---
PROCEDURE: Left L3-S1 facet joint block. DATE OF EXAMINATION: 09/04/2020. INDICATION: Female, 45 years old. Low back pain. FLUOROSCOPY TIME (if supplied): (20 seconds.) minutes/seconds. 4 intraoperative images were obtained. RAD/L/S Spine Min 4 Views IMPRESSION: Intraoperative imaging provided for left L3-S1 facet joint block. Electronically Signed: Ramon Warren MD at 12:43 EDT , Service support ,
[2020-09-04] MEDS: Lidocaine 1% (30 ml sdv) 30 ML Vial (14:02)
[2020-09-04] MEDS: Triamcinolone Acetonide 40 MG/ML Vial (14:02)
[2020-09-04] MEDS: Bupivacaine 0.25% 30 ML Vial (14:02)
[2020-09-04 14:32] VITALS: BP 109/61; BP 131/78; PULSE 60; RESP 16; TEMP 36.8; O2SAT 18
[2020-09-04 14:37] VITALS: BP 109/95; BP 126/85; O2SAT 100
== END 2020-09-04 14:36 | disposition home or self-care (01) ==
LOC: SDC 12:56 → AC 12:56
PROVIDERS: PCP Internal Medicine; Referring Provider Anesthesiology; Visit Provider Anesthesiology
PROC: 3E0T3BZ Introduction of Anesthetic Agent into Peripheral Nerves and Plexi, Percutaneous Approach (ICD-10-PCS; CPT 64493; principal; 2020-09-04 13:55)
DX: M47.816 Spondylosis without myelopathy or radiculopathy, lumbar region (principal); F17.210 Nicotine dependence, cigarettes, uncomplicated; M51.27 Other intervertebral disc displacement, lumbosacral region; M51.37 Other intervertebral disc degeneration, lumbosacral region; M79.2 Neuralgia and neuritis, unspecified
CPT/HCPCS: 01922; 64493; 64494; 64495; 64483; 72110

== ENCOUNTER → 2020-10-05 06:58 | Outpatient (CLI) | payer MEDICAID, SELFPAY ==
[2019-11-29 12:31] VITALS: BMI 28.0
--- NOTE | 2020-10-05 08:36 | NEURO ---
NCS and/or EMG Patient Report Ordering Doctor: Nanette Hylton DATE OF SERVICE: 10/05/20 Indication: Many years of intermittent bilateral upper extremity pain, numbness and tingling (right greater than left). History of cervical stenosis status post C5-7 decompression and fusion (2017). Evaluate for cervical radiculopathy and/or entrapment neuropathy. Findings: Nerve conduction studies were performed in the right and left upper extremity. The right median motor study recording the abductor pollicis brevis showed a normal amplitude, normal distal latency and normal conduction velocity. The right ulnar motor study recording the abductor digiti minimi showed a normal amplitude, normal distal latency and normal conduction velocity. No conduction block or focal slowing was present across the elbow. Right median ulnar lumbrical / interosseous motor latencies showed no significant difference. The right median sensory response recording digit two showed a normal amplitude, latency and conduction velocity. The right ulnar sensory response recording digit five showed a normal amplitude, latency and conduction velocity. The right radial sensory response recording over the extensor snuff box showed a normal amplitude, latency and conduction velocity. The left median motor study recording the abductor pollicis brevis showed a normal amplitude, normal distal latency and normal conduction velocity. The left ulnar motor study recording the abductor digiti minimi showed a normal amplitude, normal distal latency and normal conduction velocity. No conduction block or focal slowing was present across the elbow. Left median ulnar lumbrical / interosseous motor latencies showed no significant difference. The left median sensory response recording digit two showed a normal amplitude, latency and conduction velocity. The left ulnar sensory response recording digit five showed a normal amplitude, latency and conduction velocity. The left radial sensory response recording over the extensor snuff box showed a normal amplitude, latency and conduction velocity. Needle EMG of the right upper extremity and cervical paraspinal muscles was performed. No denervation was seen in any muscle. A complex repetitive discharge was seen in the cervical paraspinals. Motor units in the deltoid and biceps were slightly large amplitude and long duration with normal recruitment. All other examined motor unit morphology, activation and recruitment patterns were normal. Needle EMG of the left upper extremity and cervical paraspinal muscles was performed. No denervation was seen in any muscle. Motor units in the triceps and flexor carpi radialis muscles were large amplitude and long duration. Recruitment was slightly reduced in the triceps. All other examined motor unit morphology, activation and recruitment patterns were normal. Impression: This is an abnormal study. There is electrophysiologic evidence consistent with a chronic, right, C7 radiculopathy. In addition there is electrophysiologic evidence consistent with a chronic, left, C5/6 radiculopathy. There are no findings to suggest a superimposed median or ulnar entrapment neuropathy in either upper extremity. Jimi Bruce D.O.
== END ==
PROVIDERS: PCP Internal Medicine; Referring Provider Anesthesiology; Visit Provider Anesthesiology
DX: M54.12 Radiculopathy, cervical region (principal)
CPT/HCPCS: 95886; 95913

== ENCOUNTER → 2020-12-11 10:59 | Outpatient (CLI) | payer MEDICAID, SELFPAY ==
[2020-12-11 12:08] LABS: Amphetamine Urine VISTA NEGATIVE (<1000 ng/mL); Barbiturate Urine VISTA NEGATIVE (< 200 ng/mL); Benzodiazepine Urine VISTA NEGATIVE (< 200 ng/mL); Cocaine Urine VISTA NEGATIVE (< 300 ng/mL); Ecstacy Urine VISTA NEGATIVE (< 500 ng/mL); Methadone Urine VISTA NEGATIVE (< 300 ng/mL); PCP Urine VISTA NEGATIVE (< 25 ng/mL); THC Urine VISTA POSITIVE (< 50 ng/mL); Vista UDS pH Range 7
== END ==
PROVIDERS: PCP Internal Medicine; Referring Provider Anesthesiology; Visit Provider Anesthesiology
DX: F11.20 Opioid dependence, uncomplicated (principal)
CPT/HCPCS: 80307

== ENCOUNTER 2021-01-08 07:59 | Outpatient (RCR) | payer MEDICAID, SELFPAY ==
--- NOTE | 2021-01-19 06:41 | HP.FCE ---
Floor (Occasional 1-33% of Day): 15# Floor (Frequent 34-66% of Day): 8# Floor (Constant 67-100% of Day): NA Floor PDL: Sedentary-Light Knee (Occasional 1-33% of Day): 20# Knee (Frequent 34-66% of Day): 10# Knee (Constant 67-100% of Day): NA Knee PDL: Light Waist (Occasional 1-33% of Day): 20# Waist (Frequent 34-66% of Day): 10# Waist (Constant 67-100% of Day): NA Waist PDL: Sedentary-Light Shoulder (Occasional 1-33% of Day): 15# Shoulder (Frequent 34-66% of Day): 8# Shoulder (Constant 67-100% of Day): NA Overhead (Occasional 1-33% of Day): 10# Overhead (Frequent 34-66% of Day): NA Overhead (Constant 67-100% of Day): NA Overhead PDL: Sedentary Comments: pts limited with functional lift due to pain Bending: No Ablility (0% of day) Squatting: Occasional Ability (1-33% of day) Comments: with external support Kneeling: Occasional Ability (1-33% of day) Comments: low occasional ability with external support Reaching out: Occasional Ability (1-33% of day) Reaching up: Occasional Ability (1-33% of day) Sitting: Occasional Ability (1-33% of day) Comments: with ability to wt. shift Walking: Occasional Ability (1-33% of day) Standing: Occasional Ability (1-33% of day) Comments: low occasional ability Duration Sedentary Sedentary Light Light Light Medium Medium Medium Heavy Very Heavy Heavy Occasional (0-33% of day) Frequent (34-66% of day) Constant (67-100% of day) 10 # Negligible Negligible 15 # 8 # Negligible 20 # 10# Negli. 35 # 18 # 7 # 50 # 25 # 10 # 75 # 100 # >100 # 38 # 50 # >50 # 15 # 20 # >20 # Weight:: 70.307 kg Hand Dominance: right Medical History Including Restrictions: Pt states she was in good health until 2011. Pt states she underwent back sx for L4-L5 herniated disc and a x 2 (laminectomy). pt states states this was not successful in decreasing her back - it decreased her leg pain. Pt states 3rd back sx was 2 months after her second due to spinal fluid leakage. Pt states pain in spine was worse- pt was dx with Fibromyalgia. pt states she went through physical therapy was not helpful- pt states she has pain mtg. does injections to assist with pain mtg. pt states injection (lumbar/cervical) will last about a month or two. pt had neck sx in 2017 C5-C-6-C7 fusion. pt has spoken to a psychiatrist over video calls to help her with bipolar, PTSD. Diagnoses: Heart palpitations monitored by procurement inspector last there 2020. Fibromyalgia dx 2011. Cervical stenosis. Disc Herniation. Lymphocytic colitis -(pt tries to mtg diet). Migraines. insomnia. Bipolar. PTSD Symptoms: Pain in low back. pain in neck. pain in bilateral hip. pain in thoracic. headaches. pain in bilateral arm pain. weakness. Balance Pain: Pt reports her pain is 8/10 lower back and right leg, Neck, thoracic spine and headache. pt states she does have a implanted nerve stimulator that does help with her pain. pt reported it was on. Dr. Hylton dropped pain medication about 2 weeks ago due to pain medication not working- oxycodone 7.5 2 x a day- but pt does take medical marijuana. for pain pt states she takes the medical m. several times a day- pt states she vapes medical marijuana . multiple times a day- pt states she has not vaped this am. 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 Pt states she was fired October 2020 for being on covid quarantine (due to daughter dx with covid) pt states she was quarantined x2. 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 Pt did express it was difficult to sit long periods of time- pt did not say if she had a sit/stand work station. pt did states she did take off work a lot due to her health. 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 Behavioral: pt was emotional during the assessment. ADLS: Pt lives with her children ages 16 & 15 in a one story home with two entry steps with one hand rail. Pt states bathroom is tub shower combination. pt states she can bath and dress IND. pt states she has help from her family with cooking/cleaning. Pt states she can do the grocery shopping and drives ind. pt states her children do the yard work. ROM: pt demo neck ROM WNL. BUE WNL. Lumbar flexion mod. limited. lumbar extension mod limitation Strength: MMT BUE 4/5. MMT 4/5 Right Bilingual Medical Receptionist Strength Average: 50.00 Right Bilingual Medical Receptionist Strength Percentile: 6% Left Bilingual Medical Receptionist Strength Average: 40.00 Left Bilingual Medical Receptionist Strength Percentile: 3% Right Lateral Pinch Average: 8.00 Right Lateral Pinch Percentile: <10% Left Lateral Pinch Average: 8.00 Left Lateral Pinch Percentile: 10% Right Tripod Pinch Average: 6.00 Right Tripod Pinch Percentile: <10% Left Tripod Pinch Average: 6.00 Left Tripod Pinch Percentile: <10% Comments: resting heart rate 77 Sensation: [place] Monofilament sensory testing. right 3.84 = diminished Protective sensation. left 2.83 = Normal sensation Fine Motor: 9 Hole Peg Test. right 18.71= 50%. left 21.79 = 50% Balance: no loss of balance was noted during the assessment Bending: pt refused performing bending stated she can not bend forward. Squatting: pt demon the ability to squat 3/3 and 10/10 pt refused 10x rapidly with external support due to sensation of bilateral lefts sensation of feeling cold and tingling. pain level at 9/10 heart rate 84. pt can squat on a occasional ability with external support Kneeling: pt demo the ability to kneel 3/3 times with external support. heart rate 112. pt became emotional during this part of testing and reported pain 9/10 back and legs. pt can kneel on a low occasional ability with external support Reaching out/up: pt demo the ability to reach Up/out 3/3 heart rate 80. pt demo the ability to reach up/out 10/10 heart rate 81. pt demo the ability to reach out out/up 10/10 heart rate 107. pt reported 9/10. pt can reach out/up on a occasional ability Walking: pt ambulated 320 feet into the dept. with antalgic gait pattern. Pt did ambulate throughout department for about 315 feet with antalgic gait pattern and good helen speed. pt can ambulate on occasional ability. Standing: pt stood on and off during the session longest standing was 4 min with shifting body wt. pt can stand on low occasional ability Sitting: pt demo the ability to sit for 25 min prior to needing to stand or wt. shifting to increase comfort. Pt can sit on an occasional ability with ability to shift body weight. Climbing Stairs: pt demo the ability to ascend or descend 10 steps with a reciprocal step patterns and use of bilateral hand rails. pt demo good safety awareness during task. Floor Lift: pt demo the ability to lift 15# maximally from this level. pt used a good squat and lifting mechanics Knee Lift: pt demo the ability to lift 20# maximally from this level with fair ability Waist Lift: pt demo the ability to lift 20# maximally from this level with fair ability Shoulder Lift: pt demo the ability to lift 15# maximally from this level with fair ability Overhead Lift: pt demo the ability to lift 10# maximally from this level with fair ability Carrying: pt demo the ability to carry 15# for 25 feet x 2 with antalgic gait. pt emotional reporting back pin 12/18 Comments: pt pain limits pts safe functional mobility
--- NOTE | 2021-01-19 06:41 | HP.OTFCE.D ---
FCE D/C Summary - Discharge JONH SOMMER was seen for a one time visit for an FCE on 01/08/21 and is discharged.
== END 2021-01-08 19:00 | disposition home or self-care (01) ==
LOC: OT 07:59
PROVIDERS: PCP Internal Medicine; Referring Provider Anesthesiology; Visit Provider Anesthesiology
DX: M54.50 Low back pain, unspecified (principal); Z73.6 Limitation of activities due to disability; Z98.1 Arthrodesis status
CPT/HCPCS: 97750

== ENCOUNTER 2021-02-05 13:02 | Day surgery (SDC) | payer MEDICAID, SELFPAY ==
[2021-02-05] VITALS (7 sets, daily range): BP systolic 93–116; BP diastolic 50–71; PULSE 50–63; RESP 16–20; TEMP 36–36.2; O2SAT 99–100; BMI 29.0
[2021-02-05] MEDS: Lactated Ringers 1,000 ML 100 ML IV (13:10)
--- NOTE | 2021-02-05 14:47 | RAD_ITS ---
PROCEDURE: Caudal block. DATE OF EXAMINATION: 02/05/2021. INDICATION: Female, 45 years old. Chronic low back pain. FLUOROSCOPY TIME (if supplied): (9.4 seconds) minutes/seconds. 4 images were obtained. Intraoperative imaging provided for caudal block. RAD/Fluor Guidance for Spine Inj IMPRESSION: Intraoperative imaging provided for caudal block. Electronically Signed: Ramon Warren MD at 8:22 EDT , Service support ,
[2021-02-05] MEDS: Lidocaine 1% (30 ml sdv) 30 ML Vial (14:54)
[2021-02-05] MEDS: Triamcinolone Acetonide 40 MG/ML Vial (14:55)
--- NOTE | 2021-02-05 14:59 | OP.PCM_ITS ---
Problems Associated Problem List Diagnoses (1) Radiculopathy, lumbar region: (2) Radiculopathy, lumbar region: (3) Other intervertebral disc degeneration, lumbar region: (4) Other intervertebral disc degeneration, lumbar region: (5) Intervertebral disc disorders with radiculopathy, lumbar region: (6) Intervertebral disc disorders with radiculopathy, lumbar region: (7) Low back pain: (8) Low back pain: Report of Operation Pre-Operative Diagnosis: Lumbar degenerative disc disease and lumbar radiculopathy\lumbar postlaminectomy syndrome Post-Operative Diagnosis: Same Surgery/Procedure Performed:: Caudal epidural steroid injection under fluoroscopy guidance Description of Surgical Findings:: Under sterile conditions. Patient placed in the prone position, pressure points were padded, patient was ready from the nursing and the anesthesia team. After identification of the side and the target area for the block under guided fluoroscopy, the entry site was marked with marking pen. I used Betadine for sterilization of the skin, sterile draping were applied. Using 25-gauge needle to infiltrate the skin with local anesthesia using preservative-free lidocaine 0.5% injected 2.5 mL at site of entry. Using guided fluoroscopy, accessed through the caudal approach, from the sacrococcygeal ligament, accessed the the posterior caudal space using 22-gauge under midline approach, accessed the site was assisted with lateral fluoroscopy, followed by negative aspiration of CSF and blood. Injected contrast solution [2.5] mL under live fluoroscopy which showed good spread of the contrast to the posterior caudal epidural space and to the targeted area of the injection up to the lower lumbar epidural region. Injected [5] mL of mixture of preservative-free lidocaine and Kenalog [80] mg for the procedure which showed appropriate spread in the epidural space. [place] was removed, pressure dressing were applied. Patient tolerated the procedure well and was taken to the recovery. Surgeon: Nanette Hylton Type of Anesthesia: MAC/Supplemental/Local Estimated Blood Loss (mL): None Complications No complications Admit VTE Documentation VTE Present on Admission: No VTE Pharm Prophylaxis ordered?: No Reason prophylaxis not ordered:: Procedure Not Indicated
--- NOTE | 2021-02-05 15:03 | PCM.DC ---
Discharge Instructions Diet Discharge Diet: No restrictions Activity May resume sexual activity in: No Restrictions Weight Bearing Status: Weight bearing as tolerated Dressing / Incision Call your doctor if your incision/area has: Continuous Slow Oozing, Sudden Increased Bleeding, Increased Pain/ Swelling, Increased Redness, Foul Smelling Discharge and Swelling at the incision site Call your doctor if you observe: Fever of 101 or Higher, Coldness, Increased Pain, Numbness or Tingling, Change in Color, Inability to urinate, Inability to have a bowel movement, Increased palpitations (irregular heartbeat), Calf discomfort and Uncontrolled pain Suture Line Care: Avoid Pulling/Pushing and Avoid Pinching/Bending Change Dressing in: 1 day Remove Dressing in: 1 day Cleanse incision/area with: Soap & Water and Keep Dressing Clean & Dry Follow Up Care Please Follow Up With: Nanette Hylton MD When: 2 to 4-week Test Results: Test results from this visit will be discussed in further detail at your follow-up appointment, if applicable. Discharge Plan Admission Attending Provider: Nanette Hylton Primary Care Provider: Bee Penaloza Discharge Orders/Prescriptions Prescriptions: No Action omeprazole 40 MG capsule,delayed release(DR/EC) 40 mg PO BID RF: 0 ergocalciferol (vitamin D2) 50,000 UNIT capsule 50,000 unit PO MOTH RF: 0 desvenlafaxine succinate 25 MG tablet extended release 24 hr 50 mg PO QHS RF: 0 budesonide 3 mg Capsule,Delayed,Extend.Release 3 mg PO DAILY RF: 0 lamotrigine [Lamictal ODT] 50 mg Tablet,Disintegrating 50 mg PO BID RF: 0
== END 2021-02-05 15:48 ==
LOC: SDC 13:02 → AC 13:03
PROVIDERS: PCP Internal Medicine; Referring Provider Anesthesiology; Visit Provider Anesthesiology
PROC: 3E0S3BZ Introduction of Anesthetic Agent into Epidural Space, Percutaneous Approach (ICD-10-PCS; CPT 62282; principal; 2021-02-05 14:10)
DX: M51.16 Intervertebral disc disorders with radiculopathy, lumbar region (principal); M96.1 Postlaminectomy syndrome, not elsewhere classified; G89.29 Other chronic pain; M54.2 Cervicalgia
CPT/HCPCS: 62323; 64483; 77003; J7120; J3490

== ENCOUNTER → 2021-02-26 17:00 | Outpatient (CLI) | payer MEDICAID, SELFPAY ==
--- NOTE | 2021-02-26 17:07 | RAD_ITS ---
STUDY: X-RAY - CERVICAL SPINE REASON FOR EXAM: Female, 45 years old. PAIN Technologist Notes SURGERY IN 2017, HEADACHES, NECK PAIN TECHNIQUE: 3 view(s) of the cervical spine were obtained including oblique views. COMPARISON: 5.7.20 FINDINGS: Normal anterior atlantoaxial articulation. Normal odontoid process. There is straightening of the normal cervical lordosis. The patient is status post anterior fusion at the C5-C6 and C6-C7 levels with disc spacers. Mild degree of anterior spondylosis at the C4-C5 level. Normal visualized intervertebral neuroforamina. The soft tissue structures are unremarkable. RAD/Cerv Spine 2 or 3 Views IMPRESSION: Status post C5-C6 and C6-7 anterior fusion. Straightening of the normal cervical lordosis. No change since the prior study. Electronically Signed: Jaime Sherwood MD at 21:38 EST , Service support ,
== END ==
PROVIDERS: PCP Internal Medicine; Referring Provider Anesthesiology; Visit Provider Anesthesiology
DX: M54.2 Cervicalgia (principal); M54.12 Radiculopathy, cervical region
CPT/HCPCS: 72040

== ENCOUNTER 2021-03-26 07:30 | Day surgery (SDC) | payer MEDICAID, SELFPAY ==
[2021-03-26] VITALS (7 sets, daily range): BP systolic 97–114; BP diastolic 67–77; PULSE 46–57; RESP 16; TEMP 36.3; O2SAT 99–100; BMI 28.6
[2021-03-26] MEDS: Lactated Ringers 1,000 ML 15 ML IV (07:40)
--- NOTE | 2021-03-26 09:03 | PCM.OPRPT ---
Problems Associated Problem List Diagnoses (1) Cervical radiculopathy: (2) Cervical radiculopathy due to degenerative joint disease of spine: (3) DDD (degenerative disc disease), cervical: Report of Operation Date of Procedure: 03/26/21 Pre-Operative Diagnosis: Cervical disc degeneration and cervical radiculopathy Post-Operative Diagnosis: The same Surgery/Procedure Performed:: Cervical epidural steroid injection at the level of the C6-7, posterior interlaminar midline approach under fluoroscopy Description of Surgical Findings:: Posterior interlaminar approach at the level of the C6-7 under fluoroscopy guidance Surgeon: Nanette Hylton Type of Anesthesia: Local MAC, MAC and MAC/Supplemental Description of Procedure: Under sterile conditions. Patient placed in the prone position, pressure points were padded, patient was ready from the nursing and the anesthesia team. After identification of the side and the target area for the block under guided fluoroscopy, the entry site was marked with marking pen. I used Betadine for sterilization of the skin, sterile draping were applied. Using 25-gauge needle to infiltrate the skin with local anesthesia using preservative-free lidocaine 0.5% injected 2.5 mL at site of entry. Using guided fluoroscopy, accessed the the posterior epidural space using 18-gauge Touhy needles under midline approach, accessed the site at the posterior cervical region at the C6-7 was assisted with lateral fluoroscopy, followed by using [id number] technique using preservative-free normal saline, negative aspiration of CSF and blood. Injected contrast solution [1] mL under live fluoroscopy which showed good spread of the contrast to the posterior cervical epidural space and to the targeted area of the injection at[C6-7]. Injected [2] mL of mixture of preservative free lidocaine and Kenalog [80] mg for the procedure which showed appropriate spread in the epidural space. [place] was removed, pressure dressing were applied. Patient tolerated the procedure well and was taken to the recovery.
--- NOTE | 2021-03-26 09:05 | RAD_ITS ---
STUDY: X-RAY - CERVICAL SPINE REASON FOR EXAM: Female, 45 years old. BLOCK C6-7 TECHNIQUE: 1 view(s) of the cervical spine were obtained. COMPARISON: None FINDINGS: Intraoperative imaging provided for C6-C7 block. RAD/Spine 1 View Any Level IMPRESSION: Intraoperative imaging provided for C6-C7 block. Electronically Signed: Ramon Warren MD at 10:38 EST , Service support ,
[2021-03-26] MEDS: Lidocaine 1% (30 ml sdv) 30 ML Vial (09:20)
[2021-03-26] MEDS: Triamcinolone Acetonide 40 MG/ML Vial (09:21)
[2021-03-26] MEDS: Ketorolac 30 MG/ML Syringe IV (09:58)
== END 2021-03-26 10:35 ==
LOC: SDC 07:31 → AC 07:32
PROVIDERS: PCP Internal Medicine; Referring Provider Anesthesiology; Visit Provider Anesthesiology
PROC: 3E0S3BZ Introduction of Anesthetic Agent into Epidural Space, Percutaneous Approach (ICD-10-PCS; CPT 62320; principal; 2021-03-26 09:00)
DX: M47.22 Other spondylosis with radiculopathy, cervical region (principal); M50.30 Other cervical disc degeneration, unspecified cervical region; M47.812 Spondylosis without myelopathy or radiculopathy, cervical region; M96.1 Postlaminectomy syndrome, not elsewhere classified; M79.10 Myalgia, unspecified site; M50.13 Cervical disc disorder with radiculopathy, cervicothoracic region; M50.222 Other cervical disc displacement at C5-C6 level; Z87.891 Personal history of nicotine dependence
CPT/HCPCS: 64490; 72020; J7120

== ENCOUNTER 2021-06-02 10:21 | Emergency (ER) | payer MEDICAID, SELFPAY ==
[2021-06-02 10:22] VITALS: BP 123/91; PULSE 95; RESP 16; TEMP 37.2; O2SAT 100; BMI 27.3
--- NOTE | 2021-06-02 10:42 | CT_ITS ---
STUDY: CT BRAIN WITHOUT CONTRAST REASON FOR EXAM: Female, 45 years old. Headache RADIATION DOSAGE (If Supplied By Facility): CTDIvol = ( 44.99 ) mGy, DLP = ( 837.39 ) mGycm TECHNIQUE: Transaxial CT imaging of the brain was performed without administration of intravenous contrast material. Individualized dose optimization techniques were used for this CT. COMPARISON: No relevant priors. FINDINGS: Normal soft tissue structures. Normal calvarium. Normal size ventricles and extra-axial spaces for the patient''s age. Normal white matter tracts of the cerebral hemispheres. Normal basal ganglia and thalami. Normal brainstem. Normal cerebellum. There is no intracranial hemorrhage. There are no findings of an acute ischemic infarction. Normal visualized paranasal sinuses. CT/Brain/Head without Contrast IMPRESSION: Normal unenhanced CT scan of the brain. Electronically Signed: Ramon Warren MD at 12:01 EST ,
--- NOTE | 2021-06-02 10:42 | EKG12_ITS ---
Test Reason : BACK PAIN Blood Pressure : / mmHG Vent. Rate : 071 BPM Atrial Rate : 071 BPM P-R Int : 118 ms QRS Dur : 088 ms QT Int : 412 ms P-R-T Axes : 079 040 008 degrees QTc Int : 447 ms Normal sinus rhythm Low voltage QRS (Limb Leads) T wave abnormality, consider anterior ischemia Abnormal ECG Confirmed by AMY ROE, MANJINDER ([id number]), features editor AMY SANCHEZ ([id number]) on 06/04/2021 9:51:52 AM Referred By: JIMI Confirmed By:MANJINDER REYES MD
--- NOTE | 2021-06-02 10:43 | EX.ED.DYSGE1 ---
HPI History of Present Illness Chief Complaint: Weakness Informant: patient Narrative Narrative: Patient's presenting with some exacerbation of chronic symptoms. She states she is having tingling all over. She gets cramping more on her right leg but that is not uncommon. She feels as though her arms and legs are not connected. She is also had some mild headaches. This started with some nausea and vomiting last Monday but nausea and vomiting is gone. She states she has been getting episodes of this for a long time and she is not sure what causes it. She just feels disconnected. She has trouble explaining exactly what her feelings are. I do get that she just started lithium about 2 months ago. She has not had levels checked. However, she has had the symptoms prior to starting her lithium. She also has a back stimulator in. She has chronic back pain, bipolar, fibromyalgia and his fault with many of the symptoms for a long time. However they are a little bit worse and they are not going away after a week. She states sometimes they will last a long time but it still frustrating for her. There is no bowel or bladder dysfunction. There is no weakness of extremities. No focal weakness. No loss of vision speech or hearing. No chest pain or trouble breathing. No abdominal pain. She has not vomited in almost a week now. She is eating and drinking. Nothing consistently makes her symptoms better or worse. Nothing consistently initiates the symptoms. She also has chronic fatigue that never seems to go away. [facility] Medical History Alcohol use Anxiety Arthritis Back pain Bipolar disorder Cardiology follow-up encounter Depression Easy bruising Former smoker Gastric reflux History of colitis History of echocardiogram History of fibromyalgia History of irregular heartbeat History of pain when walking History of stress test Injury of head and neck Leg cramps Marijuana use Migraine headache Pain Restless legs Spontaneous cerebrospinal fluid leak from spine Syncope Wears dentures Wears glasses Home Medications ergocalciferol (vitamin D2) 50,000 unit PO MOTH 03/28/19 [History Last Taken Unknown] omeprazole 40 mg PO BID 03/28/19 [History Last Taken 11/29/19 07:00] desvenlafaxine succinate 50 mg PO QHS 11/22/19 [History Last Taken Unknown] budesonide 3 mg PO DAILY 09/03/20 [History Last Taken Unknown] erenumab-aooe [Aimovig Autoinjector] mg SUBCUT 06/02/21 [History Last Taken Unknown] gabapentin 06/02/21 [History Last Taken Unknown] lithium carbonate mg 06/02/21 [History Last Taken Unknown] oxycodone-acetaminophen [Percocet] 1 tab PO Q6H PRN 3 Days #9 tab 06/02/21 [Rx Last Taken Unknown] tizanidine mg 06/02/21 [History Last Taken Unknown] Allergy/AdvReac Type Severity Reaction Status Date / Time adhesive tape Allergy Rash Verified 02/05/21 13:06 bupropion [From Wellbutrin] Allergy Swelling Verified 02/05/21 13:06 hydrocodone [From Vicodin] AdvReac Other Verified 02/05/21 13:06 risperidone [From Risperdal] AdvReac Other Verified 02/05/21 13:06 tramadol AdvReac Upset Verified 02/05/21 13:06 Stomach Surgical History History of cardiac catheterization History of esophagogastroduodenoscopy (EGD) Hx laparoscopic cholecystectomy Hx of colonoscopy Hx of hysterectomy Hx of laminectomy Hx of tubal ligation S/P cervical spinal fusion S/P insertion of spinal cord stimulator Social History Smoking Status: Former smoker ROS ROS ED Constitutional Constitutional ED: Denies chills or fever(s) Eyes Eyes: Denies change in vision ENT ENT ED: Denies rhinorrhea or sore throat Cardiovascular Cardiovascular: Denies chest pain or palpitations Respiratory/Chest Respiratory/Chest: Denies dyspnea Gastrointestinal Gastrointestinal: Reports nausea and vomiting; Denies abdominal pain Genitourinary Genitourinary ED: Denies dysuria or hematuria Musculoskeletal Musculoskeletal: Reports back pain Integumentary Denies rash Neurologic Neurologic: Reports headache(s) and paresthesias; Denies weakness Psychiatric Psychiatric: Reports anxiety and depression; Denies suicidal ideation or suicidal thoughts Endocrine Endocrinology: Denies polydipsia or polyuria Allergic/Immunologic Allergic/Immunologic ED: Denies urticaria EXAM Physical Exam Const Vital Signs: 06/02/21 10:22 06/02/21 11:04 06/02/21 11:05 Temperature 98.9 F 98.9 F Temperature Source Temporal Temporal Pulse Rate 95 65 68 Respiratory Rate 16 10 L 13 Respiratory Pattern Blood Pressure 123/91 H 100/71 100/71 Blood Pressure Mean 101 80 80 Pulse Ox 100 100 99 Oxygen Delivery Method Room Air Room Air Room Air 06/02/21 11:26 Temperature Temperature Source Pulse Rate Respiratory Rate Respiratory Pattern Normal Blood Pressure Blood Pressure Mean Pulse Ox Oxygen Delivery Method Positive well nourished and well developed General Appearance ED: well developed and NAD; Negative for cyanotic or diaphoretic HEENT Reports moist mucous membranes; Denies dry mucous membranes Mouth ED: No dry mucous membranes Mouth: No dry mucous membranes Eyes General Eye ED: Negative for pale conjunctiva or scleral icterus Neck no JVD Chest Wall inspection of chest normal Resp normal respiratory effort and clear to auscultation bilaterally Effort and Inspection: Negative for pain with movement Auscultation: Negative for rales, rhonchi or wheezes Cardio regular rate and regular rhythm GI normal to inspection, nondistended, normoactive bowel sounds and non-tender Palpation: soft Back/Spine no CVA tenderness Neuro oriented x3 and no sensory deficits noted Sensorium / Orientation: alert; Negative for orientation impaired, lethargic or stuporous Sensory Exam: No sensory level loss detected Motor Exam: strength 5/5 throughout; Negative for general weakness or strength abnormal Psych mental status grossly normal Skin no rashes or lesions noted MDM MDM MDM Narrative Medical decision making narrative: Patient CBC, electrolytes are normal. [place] is actually low which is better than talk easily. Patient is having pain all over. It sounds like she has pains all over and symptoms like this for a long time. I did do online prescribing report. Lapsed prescription for any narcotic was about 7 days ago. She would be out at this time. I will get her some pain meds here. We will get her a couple to go. I explained that I am willing to help but I cannot manage her long-term chronic issues. I am not going to be able to manage her discomfort long-term. I cannot manage her chronic fatigue and lack of energy either. Lab Data Attestation: I reviewed the patient's lab results. Labs: Laboratory Results - last 24 hr 06/02/21 06/02/21 06/02/21 10:35 10:35 10:35 WBC 7.9 RBC 4.26 Hgb 13.6 Hct 42.0 MCV 98.6 MCH 31.9 MCHC 32.4 RDW Std Deviation 44.9 H RDW Coeff of Margarita 12.4 Plt Count 453 H MPV 9.0 Immature Gran % (Auto) 0.300 Neut % (Auto) 59.3 Lymph % (Auto) 32.7 Travis % (Auto) 5.7 Eos % (Auto) 1.4 Baso % (Auto) 0.6 Absolute Neuts (auto) 4.7 Absolute Lymphs (auto) 2.57 Nucleated RBC % 0 Sodium 136 Potassium 3.9 Chloride 104 Carbon Dioxide 29.0 Anion Gap 3 L BUN 16 Creatinine 0.77 Estim Creat Clear Calc 74.51 Est GFR (MDRD) Af Amer 106 Est GFR (MDRD) Non-Af 87 BUN/Creatinine Ratio 20.9 H Glucose 103 Calcium 9.0 [place] < 0.20 L Radiography Diagnostic Testing: Clinical Impression(s) from Imaging Studies Brain CT 06/02/21 10:42 IMPRESSION: Normal unenhanced CT scan of the brain. Electronically Signed: Ramon Warren MD at 12:01 EST , Discharge Plan Triage Chief Complaint: Weakness ED Provider: Jose Juan Dougherty Dx/Rx/DC Orders Clinical Impression: Acute exacerbation of chronic low back pain, Chronic fatigue Instructions: ED Back and Neck Pain, General Prescriptions: New oxycodone-acetaminophen [Percocet] 5-325 mg tablet 1 tab PO Q6H PRN (Reason: pain) 3 Days Qty: 9 RF: 0 No Action omeprazole 40 MG capsule,delayed release(DR/EC) 40 mg PO BID RF: 0 ergocalciferol (vitamin D2) 50,000 UNIT capsule 50,000 unit PO MOTH RF: 0 desvenlafaxine succinate 25 MG tablet extended release 24 hr 50 mg PO QHS RF: 0 budesonide 3 mg Capsule,Delayed,Extend.Release 3 mg PO DAILY RF: 0 tizanidine 4 mg tablet RF: 0 gabapentin 300 mg capsule RF: 0 lithium carbonate 300 mg tablet RF: 0 Aimovig Autoinjector 70 mg/mL auto-injector SUBCUT RF: 0 Primary Care Provider: Bee Penaloza Referrals: Bee Penaloza MD [Primary Care Provider] - As soon as possible Disposition Disposition: Home, Self Care
[2021-06-02 11:04] VITALS: BP 100/71; PULSE 65; RESP 10; O2SAT 100
[2021-06-02 11:05] VITALS: BP 100/71; PULSE 68; RESP 13; TEMP 37.2; O2SAT 99
[2021-06-02 11:10] LABS: Absolute Lymphocyte Count 2.57 X10^3/uL (0.83-4.51); Absolute Neutrophil Count 4.7 X10^3/uL (2.0-7.7); Basophil# 0.05 X10^3/uL; Basophil% 0.6 % (0-1); Eosinophil# 0.11 X10^3/uL; Eosinophils% 1.4 % (0-5); Hemoglobin 13.6 g/dL (12.0-15.0); Lymphocyte # 2.57 X10^3/ul (0.83-4.51); Lymphocyte % 32.7 % (19-41); Mean Corp Hgb Conc 32.4 g/dL (32-36); Mean Corpuscular Hgb 31.9 pg (27.0-32.0); Mean Corpuscular Volume 98.6 fL (81-99); Monocyte# 0.45 X10^3/uL; Monocyte% 5.7 % (0-10); NRBC Flagged by Analyzer 0 % (0-5); Neutrophil # 4.66 X10^3/uL (2.7-7.7); Neutrophil % 59.3 % (47-70); Platelet Count 453 K/mm3 (150-450); RBC Distribution Width CV 12.4 % (11.6-14.6); RBC Distribution Width SD 44.9 fl (35.1-43.9); Red Blood Count 4.26 M/mm3 (4.2-5.4); White Blood Count 7.9 K/mm3 (4.4-11.0)
[2021-06-02 11:33] LABS: Anion Gap 3 (5-15); BUN 16 mg/dL (7-18); BUN/Creat Ratio 20.9 RATIO (10-20); Chloride 104 mmol/L (98-107); Creatinine, Serum 0.77 mg/dL (0.55-1.02); EST Glomerular Filtration Rate 87 mL/min (>60); Est Glom Filt Rate - Afr Amer 106 mL/min (>60); Estimated Creatinine Clearance 74.51 ml/min; Glucose 103 mg/dL (74-106); Potassium 3.9 mmol/L (3.5-5.1); Sodium Level 136 mmol/L (136-145)
[2021-06-02 11:47] LABS: Lithium < 0.20 mmol/L (0.60-1.20)
[2021-06-02] MEDS: oxyCODONE 5 MG Tablet PO (13:18)
[2021-06-02 13:24] VITALS: BP 93/73; PULSE 94; O2SAT 96
== END 2021-06-02 13:24 | disposition home or self-care (01) ==
PROVIDERS: Emergency Provider Emergency Medicine; PCP Internal Medicine; Visit Provider Emergency Medicine
DX: M54.50 Low back pain, unspecified (principal); F31.9 Bipolar disorder, unspecified; R53.1 Weakness; G89.29 Other chronic pain; Z87.891 Personal history of nicotine dependence; R53.82 Chronic fatigue, unspecified; R51.9 Headache, unspecified; M79.7 Fibromyalgia
CPT/HCPCS: 70450; 80048; 80178; 85025; 93005; 99282

== ENCOUNTER 2021-07-09 13:26 | Outpatient (CLI) | payer MEDICAID, SELFPAY ==
--- NOTE | 2021-07-09 13:31 | CT_ITS ---
STUDY: CT CERVICAL SPINE WITHOUT CONTRAST REASON FOR EXAM: Female, 45 years old. RADICULOPATHY. Status post fusion at the C5-C6 C6-C7 levels. RADIATION DOSAGE (If Supplied By Facility): CTDIvol = ( 17.87 ) mGy, DLP = ( 342.29 ) mGycm TECHNIQUE: High resolution transaxial imaging was performed without contrast material. Sagittal and coronal images were reconstructed. Individualized dose optimization techniques were used for this CT. COMPARISON: Comparison is made with prior study dated 07/21/2016. FINDINGS: Normal craniovertebral junction. Normal anterior atlantoaxial articulation. Normal odontoid process. Normal cervical lordosis. Normal vertebral bodies and posterior osseous elements. C2-3: Normal endplates. Normal disc height and morphology. Normal central canal and intervertebral neuroforamina. C3-4: Normal endplates. Normal disc height and morphology. Normal central canal and intervertebral neuroforamina. C4-5: Anterior spondylosis. No significant disc space narrowing is seen. C5-6: The patient is status post anterior fusion with screw and plate fixation device. Prosthetic disc is seen. Uncovertebral arthrosis. No significant neural foraminal stenosis is seen. C6-7: The patient is status post anterior fusion and disc replacement. Mild degree of uncovertebral arthrosis C7-T1: Normal endplates. Normal disc height and morphology. Normal central canal and intervertebral neuroforamina. Normal visualized soft tissue structures. CT/Spine Cervical without Contras IMPRESSION: Stable postoperative changes at the C5-6 and C6-C7 levels. No evidence of spinal stenosis or fracture. Electronically Signed: Ramon Warren MD at 14:01 EDT ,
== END 2021-07-09 23:59 | disposition home or self-care (01) ==
LOC: CT 13:28
PROVIDERS: PCP Internal Medicine; Referring Provider Anesthesiology Pain Medicine; Visit Provider Anesthesiology Pain Medicine
DX: M54.12 Radiculopathy, cervical region (principal)
CPT/HCPCS: 72125

== ENCOUNTER 2021-11-13 17:49 | Emergency (ER) | payer MEDICAID, SELFPAY ==
[2021-11-13 17:50] VITALS: BP 118/82; PULSE 84; RESP 15; TEMP 36.6; O2SAT 100; BMI 29.9
--- NOTE | 2021-11-13 18:06 | CT_ITS ---
STUDY: CT ABDOMEN AND PELVIS WITH CONTRAST REASON FOR EXAM: Female, 46 years old. RLQ abdominal pain RADIATION DOSAGE (If Supplied By Facility): CTDIvol = ( 16.43 ) mGy, DLP = ( 971.96 ) mGycm TECHNIQUE: Transaxial images were obtained from the dome of the diaphragm to the symphysis pubis without oral contrast. IV 100mL [id number]-[id number] was administered. Sagittal and coronal images were reconstructed. Individualized dose optimization techniques were used for this CT. COMPARISON: None. FINDINGS: The visualized lung bases are unremarkable. The visualized portions of the heart are within normal limits. Normal liver. There are surgical clips in the gallbladder fossa consistent with a prior cholecystectomy. Normal spleen. Normal pancreas. Normal bilateral adrenal glands. Normal right kidney. Normal left kidney. Normal visualized stomach. Normal small intestine. Normal colon. The appendix is visualized and appears normal. Normal abdominal aorta. Normal inferior vena cava. Normal retroperitoneum. Normal urinary bladder. Normal abdominal wall. Normal osseous structures. Dorsal column spinal stimulator in the right flank. CT/Abdomen/Pelvis W IV Cont ONLY IMPRESSION: Normal enhanced CT of the abdomen and pelvis. Electronically Signed: Neftali Russell MD at 19:54 EDT ,
[2021-11-13] MEDS: Ondansetron 4 MG/2 ML Vial IV (18:10)
[2021-11-13] MEDS: Morphine 4 MG/ML Syringe IV (18:10)
--- NOTE | 2021-11-13 18:16 | ED.VIS.GI ---
HPI HPI - GI History of Present Illness Chief Complaint: Abd Pain Narrative Narrative: 46-year-old female presenting with abdominal pain. She states that suprapubic and right lower quadrant pain. Is been present for a few days. She states she had this about a month ago and it resolved on its own. She does report that she had diarrhea multiple times throughout the month. No fever or chills. No nausea or vomiting. No urinary complaints. No recent anabiotic use. Patient does state that she was seen by her primary care doctor on the second of this month and had blood work drawn which was normal. This was before the pain started. [facility] Medical History Alcohol use Anxiety Arthritis Back pain Bipolar disorder Cardiology follow-up encounter Chronic diarrhea Depression Diarrhea Easy bruising Endometriosis Former smoker Gastric reflux History of colitis History of echocardiogram History of fibromyalgia History of irregular heartbeat History of pain when walking History of stress test Injury of head and neck Leg cramps Marijuana use Migraine headache Nausea Pain Restless legs Spontaneous cerebrospinal fluid leak from spine Syncope Wears dentures Wears glasses Home Medications ergocalciferol (vitamin D2) 1,250 mcg (50,000 unit) capsule 50,000 unit PO MOTH 03/28/19 [History Last Taken Unknown] omeprazole 40 mg capsule,delayed release 40 mg PO BID gerd 03/28/19 [History Last Taken 11/29/19 07:00] desvenlafaxine succinate 25 mg tablet,extended release 24 hr 50 mg PO QHS bipolar/mood 11/22/19 [History Last Taken Unknown] budesonide 3 mg capsule,delayed,extended release 3 mg PO DAILY 09/03/20 [History Last Taken Unknown] erenumab-aooe 70 mg/mL subcutaneous auto-injector (Aimovig Autoinjector) mg subcut 06/02/21 [History Last Taken Unknown] gabapentin 300 mg capsule 06/02/21 [History Last Taken Unknown] lithium carbonate 300 mg tablet mg 06/02/21 [History Last Taken Unknown] oxycodone-acetaminophen 5 mg-325 mg tablet (Percocet) 1 tab PO Q6H PRN pain 3 days #9 tabs 06/02/21 [Rx Last Taken Unknown] tizanidine 4 mg tablet mg 06/02/21 [History Last Taken Unknown] cholecalciferol (vitamin D3) 1,250 mcg (50,000 unit) capsule 1,250 mcg PO QWEEK 07/01/21 [History Last Taken Unknown] rifaximin 550 mg tablet 550 mg PO BID 07/01/21 [History Last Taken Unknown] venlafaxine 150 mg tablet,extended release 24 hr 150 mg PO DAILY 07/01/21 [History Last Taken Unknown] amitriptyline 50 mg tablet 50 mg PO DAILY 11/11/21 [History Last Taken Unknown] erenumab-aooe 70 mg/mL subcutaneous auto-injector (Aimovig Autoinjector) 70 mg subcut QMONTH 11/11/21 [History Last Taken Unknown] estradiol 0.5 mg tablet 0.5 mg PO DAILY 11/11/21 [History Last Taken Unknown] Allergy/AdvReac Type Severity Reaction Status Date / Time duloxetine Allergy Intermediate Dizziness Verified 11/13/21 17:54 adhesive tape Allergy Rash Verified 11/13/21 17:54 bupropion [From Wellbutrin] Allergy Swelling Verified 11/13/21 17:54 hydrocodone [From Vicodin] AdvReac Other Verified 11/13/21 17:54 risperidone [From Risperdal] AdvReac Other Verified 11/13/21 17:54 tramadol AdvReac Upset Verified 11/13/21 17:54 Stomach Family History Father Cancer Heart disease Hypertension Hyperlipidemia Grandmother Cancer stomach Grandfather Cancer Surgical History History of cardiac catheterization History of esophagogastroduodenoscopy (EGD) Hx laparoscopic cholecystectomy Hx of colonoscopy Hx of hysterectomy Hx of laminectomy Hx of tubal ligation S/P cervical spinal fusion S/P insertion of spinal cord stimulator Social History Smoking Status: Former smoker Electronic Cigarette Use: without nicotine alcohol intake: current substance use type: marijuana ROS ROS ED Constitutional Constitutional ED: Denies chills or fever(s) ENT ENT ED: Denies rhinorrhea or sore throat Cardiovascular Cardiovascular: Denies chest pain or palpitations Respiratory/Chest Respiratory/Chest: Denies cough or dyspnea Gastrointestinal Gastrointestinal: Reports abdominal pain and diarrhea; Denies nausea or vomiting Genitourinary Genitourinary ED: Denies dysuria or hematuria Musculoskeletal Musculoskeletal: Denies arthralgias Integumentary Denies abscess or Abrasions Neurologic Neurologic: Denies headache(s) or paresthesias Psychiatric Psychiatric: Denies anxiety or depression EXAM Physical Exam Const Vital Signs: 11/13/21 17:50 Temperature 97.9 F Temperature Source Temporal Pulse Rate 84 Respiratory Rate 15 Blood Pressure 118/82 H Blood Pressure Mean 94 Pulse Ox 100 Oxygen Delivery Method Room Air MDM MDM MDM Narrative Medical decision making narrative: Patient presenting with lower abdominal cramping. She had diarrhea for a month. I reviewed her blood work from the other day and she had a CBC which showed no leukocytosis. Her hemoglobin was 12.8. Today it is 10.7. I asked her if she had any black or bloody stools or emesis and she states she is only had clear watery stools. She is not anticoagulated. She is not hypotensive or tachycardic. She has no pallor in her some conjunctiva are pink. BMP is within normal limits. Patient does states she supposed to follow-up with Dr. Orlando in December. I spoke with him about her and he states if he calls the office that they can get her in sooner for an evaluation. I do not believe the patient needs to be transfused. She is not admitting to any bleeding. Likely this is occult blood if anything. Patient amenable to this plan. He is given return precautions. Impression: 1. Lower GI bleed stable 2. Blood loss anemia 3. Abdominal pain 4. Diarrhea Lab Data Attestation: I reviewed the patient's lab results. Labs: Laboratory Results - last 24 hr 11/13/21 11/13/21 11/13/21 18:05 18:05 18:20 WBC Cancelled 8.6 Corrected WBC Cancelled RBC Cancelled 3.33 L Hgb Cancelled 10.7 L Hct Cancelled 33.1 L MCV Cancelled 99.4 H MCH Cancelled 32.1 H MCHC Cancelled 32.3 RDW Std Deviation Cancelled 45.3 H RDW Coeff of Margarita Cancelled 12.4 Plt Count Cancelled 349 MPV Cancelled 8.9 Immature Gran % (Auto) Cancelled 0.300 Neut % (Auto) Cancelled 48.4 Lymph % (Auto) Cancelled 41.1 H Guthrie % (Auto) Cancelled 7.2 Eos % (Auto) Cancelled 2.3 Baso % (Auto) Cancelled 0.7 Absolute Neuts (auto) Cancelled 4.2 Absolute Lymphs (auto) Cancelled 3.53 Total Counted Cancelled Neutrophils % (Manual) Cancelled Band Neutrophils % Cancelled Lymphocytes % (Manual) Cancelled Monocytes % (Manual) Cancelled Eosinophils % (Manual) Cancelled Basophils % (Manual) Cancelled Metamyelocytes % Cancelled Myelocytes % Cancelled Promyelocytes % Cancelled Blast Cells % Cancelled Plasma Cell % (Manual) Cancelled Other Cells % Cancelled Nucleated RBC % Cancelled 0 Nucleated RBCs/100 WBC Cancelled Differential Comment Cancelled Diff Path Review Cancelled Hypersegmented Neuts Cancelled Atypical Lymphocytes Cancelled Reactive Lymphocytes Cancelled Smudge Cells Cancelled Toxic Granulation Cancelled Toxic Vacuolation Cancelled Dohle Bodies Cancelled Yanique Rods Cancelled Platelet Estimate Cancelled Plt Morphology Comment Cancelled RBC Morphology Cancelled Polychromasia Cancelled Hypochromasia Cancelled Poikilocytosis Cancelled Basophilic Stippling Cancelled Anisocytosis Cancelled Microcytosis Cancelled Macrocytosis Cancelled Spherocytes Cancelled Sickle Cells Cancelled Target Cells Cancelled Tear Drop Cells Cancelled Ovalocytes Cancelled Stomatocytes Cancelled [place] Bodies Cancelled Luis Cells Cancelled Bite Cells Cancelled Crenated Cell Cancelled Acanthocytes (Spur) Cancelled Rouleaux Cancelled Schistocytes Cancelled Sodium 137 Potassium 4.7 Chloride 107 Carbon Dioxide 26.0 Anion Gap 4 L BUN 12 Creatinine 0.75 Estim Creat Clear Calc 75.71 Est GFR (MDRD) Af Amer 107 Est GFR (MDRD) Non-Af 89 BUN/Creatinine Ratio 15.9 Glucose 93 Calcium 8.9 Total Bilirubin 0.30 AST 24 ALT 17 Alkaline Phosphatase 81 Total Protein 7.2 Albumin 3.5 Globulin 3.7 Albumin/Globulin Ratio 0.9 Urine Color Urine Clarity Urine pH Ur Specific [place] Urine Protein Urine Glucose (UA) Urine Ketones Urine Occult Blood Urine Nitrite Urine Bilirubin Urine Urobilinogen Ur Leukocyte Esterase Urine RBC Urine WBC Ur Squamous Epith Cells Urine Bacteria Urine Mucus 11/13/21 19:20 WBC Corrected WBC RBC Hgb Hct MCV MCH MCHC RDW Std Deviation RDW Coeff of Margarita Plt Count MPV Immature Gran % (Auto) Neut % (Auto) Lymph % (Auto) Guthrie % (Auto) Eos % (Auto) Baso % (Auto) Absolute Neuts (auto) Absolute Lymphs (auto) Total Counted Neutrophils % (Manual) Band Neutrophils % Lymphocytes % (Manual) Monocytes % (Manual) Eosinophils % (Manual) Basophils % (Manual) Metamyelocytes % Myelocytes % Promyelocytes % Blast Cells % Plasma Cell % (Manual) Other Cells % Nucleated RBC % Nucleated RBCs/100 WBC Differential Comment Diff Path Review Hypersegmented Neuts Atypical Lymphocytes Reactive Lymphocytes Smudge Cells Toxic Granulation Toxic Vacuolation Dohle Bodies Yanique Rods Platelet Estimate Plt Morphology Comment RBC Morphology Polychromasia Hypochromasia Poikilocytosis Basophilic Stippling Anisocytosis Microcytosis Macrocytosis Spherocytes Sickle Cells Target Cells Tear Drop Cells Ovalocytes Stomatocytes [place] Bodies [place] Cells Bite Cells Crenated Cell Acanthocytes (Spur) Rouleaux Schistocytes Sodium Potassium Chloride Carbon Dioxide Anion Gap BUN Creatinine Estim Creat Clear Calc Est GFR (MDRD) Af Amer Est GFR (MDRD) Non-Af BUN/Creatinine Ratio Glucose Calcium Total Bilirubin AST ALT Alkaline Phosphatase Total Protein Albumin Globulin Albumin/Globulin Ratio Urine Color Yellow Urine Clarity Sl. Cloudy Urine pH 5.0 Ur Specific [place] 1.015 Urine Protein Negative Urine Glucose (UA) Normal Urine Ketones Negative Urine Occult Blood Negative Urine Nitrite Negative Urine Bilirubin Negative Urine Urobilinogen Normal Ur Leukocyte Esterase 25 H Urine RBC 0 SEEN Urine WBC 0-5 SEEN Ur Squamous Epith Cells 10-25 SEEN Urine Bacteria 2+ Urine Mucus 0 SEEN Radiography Diagnostic Testing: Clinical Impression(s) from Imaging Studies Abdomen/Pelvis CT 11/13/21 18:06 IMPRESSION: Normal enhanced CT of the abdomen and pelvis. Electronically Signed: Neftali Russell MD at 19:54 EDT , Discharge Plan Triage Chief Complaint: Abd Pain ED Provider: Martin Carolina Dx/Rx/DC Orders Instructions: ED Lower GI Bleeding (Stable) Prescriptions: No Action venlafaxine 150 mg tablet extended release 24hr 150 mg PO DAILY cholecalciferol (vitamin D3) 1,250 mcg (50,000 unit) capsule 1,250 mcg PO QWEEK rifaximin 550 mg tablet 550 mg PO BID amitriptyline 50 mg tablet 50 mg PO DAILY Aimovig Autoinjector 70 mg/mL auto-injector 70 mg subcut QMONTH estradiol 0.5 mg tablet 0.5 mg PO DAILY Rx Instructions: off 5 days; repeat cycle omeprazole 40 MG capsule,delayed release(DR/EC) 40 mg PO BID ergocalciferol (vitamin D2) 50,000 UNIT capsule 50,000 unit PO MOTH desvenlafaxine succinate 25 MG tablet extended release 24 hr 50 mg PO QHS budesonide 3 mg Capsule,Delayed,Extend.Release 3 mg PO DAILY tizanidine 4 mg tablet Label Comments: TAKE 1 TABLET BY MOUTH THREE TIMES DAILY NEEDED gabapentin 300 mg capsule Label Comments: Take 1 capsule by mouth daily at bedtime lithium carbonate 300 mg tablet Label Comments: Take 1 tablet by mouth daily at bedtime. (needs bloodwork and office visit prior to next refill) Aimovig Autoinjector 70 mg/mL auto-injector SUBCUT Label Comments: inj subcutaneous Every day for 30 Days oxycodone-acetaminophen [Percocet] 5-325 mg tablet 1 tab PO Q6H PRN (Reason: pain) 3 Days Qty: 9 0RF Primary Care Provider: Bee Penaloza Referrals: Bee Penaloza MD [Primary Care Provider] - Oliver Orlando DO [Med Staff - Active Staff] - 3-5 Days Activity Restrictions/Additional Instructions: Call Dr. Orlando's office on Monday morning. They will work you into the schedule to be seen sooner than December. Return for any worsening symptoms Disposition Disposition: Home, Self Care
[2021-11-13 18:28] LABS: Absolute Lymphocyte Count 3.53 X10^3/uL (0.83-4.51); Absolute Neutrophil Count 4.2 X10^3/uL (2.0-7.7); Basophil# 0.06 X10^3/uL; Basophil% 0.7 % (0-1); Eosinophils% 2.3 % (0-5); Hematocrit 33.1 % (37-47); Hemoglobin 10.7 g/dL (12.0-15.0); Lymphocyte # 3.53 X10^3/ul (0.83-4.51); Lymphocyte % 41.1 % (19-41); Mean Corp Hgb Conc 32.3 g/dL (32-36); Mean Corpuscular Hgb 32.1 pg (27.0-32.0); Mean Corpuscular Volume 99.4 fL (81-99); Mean Platelet Vol. 8.9 fl (6.2-12.0); Monocyte# 0.62 X10^3/uL; Monocyte% 7.2 % (0-10); NRBC Flagged by Analyzer 0 % (0-5); Neutrophil # 4.15 X10^3/uL (2.7-7.7); Neutrophil % 48.4 % (47-70); Platelet Count 349 K/mm3 (150-450); RBC Distribution Width CV 12.4 % (11.6-14.6); RBC Distribution Width SD 45.3 fl (35.1-43.9); Red Blood Count 3.33 M/mm3 (4.2-5.4); White Blood Count 8.6 K/mm3 (4.4-11.0)
[2021-11-13 18:51] LABS: ALB/GLOB Ratio 0.9 RATIO (0.9-2.4); AST(SGOT) 24 U/L (15-37); Alanine Aminotransfer ALT/SGPT 17 U/L (13-56); Albumin, Serum 3.5 g/dL (3.2-5.0); Alkaline Phosphatase 81 U/L (45-117); Anion Gap 4 (5-15); BUN 12 mg/dL (7-18); BUN/Creat Ratio 15.9 RATIO (10-20); Calcium,Total 8.9 mg/dL (8.5-10.1); Chloride 107 mmol/L (98-107); Creatinine, Serum 0.75 mg/dL (0.55-1.02); EST Glomerular Filtration Rate 89 mL/min (>60); Est Glom Filt Rate - Afr Amer 107 mL/min (>60); Estimated Creatinine Clearance 75.71 ml/min; Globulin 3.7 g/dL (2.2-4.2); Glucose 93 mg/dL (74-106); Potassium 4.7 mmol/L (3.5-5.1); Protein, Total 7.2 g/dL (6.4-8.2); Sodium Level 137 mmol/L (136-145)
[2021-11-13 19:23] LABS: Mucous, Urine 0 SEEN /hpf (<or=2+); Red Blood Cells-Urine 0 SEEN /hpf (0-5)
[2021-11-13 19:27] LABS: Glucose, Dipstick Normal (Normal); Ketone-Dipstick Negative (Negative); Leukocyte Esterase-Dipstick 25 /ul (Negative); Nitrite-Dipstick Negative (Negative); Occult Blood-Urine Negative /ul (Negative); Protein-Dipstick Negative (Negative); Specific Gravity, Urine 1.015 (1.002-1.030); Urine Bilirubin Dipstick Negative (Negative); Urine Clarity Sl. Cloudy (Clear); Urine Urobilinogen Normal (Normal)
[2021-11-13 19:31] LABS: Color, Urine Yellow (Yellow)
[2021-11-13 19:37] LABS: White Blood Cells 0-5 SEEN /hpf (0-5)
[2021-11-13 19:38] LABS: Bacteria 2+ /hpf (None Seen); Squamous Epithelial Cells - UA 10-25 SEEN /hpf (5-10)
[2021-11-13] MEDS: oxyCODONE 5 MG Tablet PO (21:31)
[2021-11-13 21:41] VITALS: BP 114/74; PULSE 76; RESP 16; O2SAT 98
== END 2021-11-13 21:42 | disposition home or self-care (01) ==
PROVIDERS: Emergency Provider Student in an Organized Health Care Education/Training Program; PCP Internal Medicine; Visit Provider Student in an Organized Health Care Education/Training Program
DX: K92.2 Gastrointestinal hemorrhage, unspecified (principal); Z87.891 Personal history of nicotine dependence; R19.7 Diarrhea, unspecified; R10.9 Unspecified abdominal pain; F12.90 Cannabis use, unspecified, uncomplicated; D50.0 Iron deficiency anemia secondary to blood loss (chronic)
CPT/HCPCS: 74177; 80053; 81001; 85025; 96361; 96374; 96375; 99283; J7040; Q9967; A4216; J2405

== ENCOUNTER → 2021-12-30 | Outpatient (CLI) | payer MEDICARE, MEDICAID, SELFPAY ==
[2021-12-30 15:48] LABS: Absolute Lymphocyte Count 2.01 X10^3/uL (0.83-4.51); Absolute Neutrophil Count 2.6 X10^3/uL (2.0-7.7); Basophil# 0.05 X10^3/uL; Basophil% 0.9 % (0-1); Eosinophil# 0.11 X10^3/uL; Hematocrit 40.9 % (37-47); Hemoglobin 13.3 g/dL (12.0-15.0); Lymphocyte # 2.01 X10^3/ul (0.83-4.51); Mean Corp Hgb Conc 32.5 g/dL (32-36); Mean Corpuscular Hgb 31.5 pg (27.0-32.0); Mean Corpuscular Volume 96.9 fL (81-99); Mean Platelet Vol. 10.1 fl (6.2-12.0); Monocyte# 0.63 X10^3/uL; Monocyte% 11.6 % (0-10); NRBC Flagged by Analyzer 0 % (0-5); Neutrophil # 2.62 X10^3/uL (2.7-7.7); Neutrophil % 48.3 % (47-70); Platelet Count 396 K/mm3 (150-450); RBC Distribution Width CV 12.9 % (11.6-14.6); RBC Distribution Width SD 46.4 fl (35.1-43.9); Red Blood Count 4.22 M/mm3 (4.2-5.4); White Blood Count 5.4 K/mm3 (4.4-11.0)
[2022-01-03 16:08] LABS: Endomysial Antibody IgA Negative (Negative)
[2022-01-04 13:48] LABS: Immunoglobulin A 439 mg/dL (87-352); t-Transglutaminase IgA <2 U/mL (0-3)
[2022-01-06 11:09] LABS: Albumin 3.7 g/dL (2.9-4.4); Alpha-1-Globulins 0.3 g/dL (0.0-0.4); Alpha-2-Globulins 0.9 g/dL (0.4-1.0); Cytoplasmic Ab (C-ANCA) <1:20 titer (Neg:<1:20); Gamma Globulin 1.2 g/dL (0.4-1.8); Immunoglobulin A 436 mg/dL (87-352); Immunoglobulin E 23 IU/mL (6-495); Immunoglobulin G 1023 mg/dL (586-1602); Immunoglobulin M 136 mg/dL (26-217); PROEL- TOTAL PROTEIN 7.4 g/dL (6.0-8.5)
[2022-01-06 16:23] LABS: Gastrin, Serum 50 pg/mL (0-115); Perinuclear Ab (P-ANCA) <1:20 titer (Neg:<1:20)
[2022-01-07 01:07] LABS: Anti-Centromere B Ab <0.2 AI (0.0-0.9); Anti-Chromatin <0.2 AI (0.0-0.9); Anti-Jo <0.2 AI (0.0-0.9); Anti-Scleroderma-70 AB <0.2 AI (0.0-0.9); Beef <0.10 kU/L (Class 0); Corn <0.10 kU/L (Class 0); Egg, Whole <0.10 kU/L (Class 0); Milk (Cow) 0.18 kU/L (Class 0/I); Peanut <0.10 kU/L (Class 0); Pork <0.10 kU/L (Class 0); RNP Ab 0.4 AI (0.0-0.9); SJOGREN'S Anti-SS-A test < 0.2 AI (0.0-0.9); SJOGREN'S Anti-SS-B test < 0.2 AI (0.0-0.9); Smith Ab <0.2 AI (0.0-0.9); Soybean <0.10 kU/L (Class 0); Wheat <0.10 kU/L (Class 0)
[2022-01-07 09:02] LABS: Anti-dsDNA Ab <1 IU/mL (0-9); Chocolate <0.10 kU/L (Class 0)
== END | disposition home or self-care (01) ==
LOC: LAB 13:36
PROVIDERS: PCP Internal Medicine; Referring Provider Internal Medicine Gastroenterology; Visit Provider Internal Medicine Gastroenterology
DX: R19.7 Diarrhea, unspecified (principal)
CPT/HCPCS: 36415; 82784; 82785; 82941; 83516; 84165; 85025; 86003; 86005; 86225; 86235; 86255; 86256; 86334

== ENCOUNTER → 2022-01-21 | Outpatient (CLI) | payer MEDICARE, MEDICAID, SELFPAY ==
--- NOTE | 2022-01-21 11:48 | NM_ITS ---
CLINICAL: 46-year-old female with history of chronic nausea and clinical gastroparesis. SEMI-SOLID PHASE 99m Tc SULFUR COLLOID GASTRIC EMPTYING STUDY COMPARISON: CT of the abdomen-pelvis report 11/13/2021 FINDINGS: The patient was administered 1.0 mCi of 99m Tc sulfur colloid mixed with oatmeal and consumed per os. Image acquisitions in the anterior-posterior projections were obtained for 60 minutes. There is prompt visualization of the stomach. There is no gastroesophageal reflux identified. The T ? emptying was calculated to be 53.99 minutes, (Normal: 12-56 minutes). NM/Gastric Emptying Study IMPRESSION: 1. NORMAL 99m Tc sulfur colloid semi-solid phase (oatmeal) gastric emptying imaging examination. A. There is upper limits of normal semi-solid phase gastric emptying compared to normal controls. (Kari et al, J Nucl Med Tech 38: 186, 2010). Electronically Signed: Neftali Butler, at 9:12 EDT ,
== END | disposition home or self-care (01) ==
PROVIDERS: PCP Internal Medicine; Referring Provider Internal Medicine Gastroenterology; Visit Provider Internal Medicine Gastroenterology
DX: R10.9 Unspecified abdominal pain (principal); R19.7 Diarrhea, unspecified; K31.84 Gastroparesis
CPT/HCPCS: 78264; A9541

== ENCOUNTER 2022-07-21 20:18 | Emergency (ER) | payer MEDICARE, MEDICAID, SELFPAY ==
[2022-07-21 20:19] VITALS: BP 137/90; PULSE 90; RESP 18; TEMP 36.4; O2SAT 97; BMI 34.3
--- NOTE | 2022-07-21 20:50 | ED.VIS.FALL ---
HPI HPI - Fall History of Present Illness Chief Complaint: Fall Informant: patient and spouse/S.O. Narrative Narrative: Presenting with mechanical fall prior to arrival. Was chasing daughter around the car slipped on gravel. She hit her knees hands and hit her head. No loss of consciousness. Pain to her legs however able to ambulate. States has laceration left forehead. Tetanus unknown. No anticoagulants. Denies head or neck pain. No chest pains. Abrasions to the knees and hands. Tetanus Immunization: Unknown [facility] Medical History Alcohol use Anxiety Arthritis Back pain Bipolar disorder Cardiology follow-up encounter Chronic diarrhea Depression Diarrhea Easy bruising Endometriosis Former smoker Gastric reflux History of colitis History of echocardiogram History of fibromyalgia History of irregular heartbeat History of pain when walking History of stress test Injury of head and neck Leg cramps Marijuana use Migraine headache Nausea Pain Restless legs Spontaneous cerebrospinal fluid leak from spine Syncope Wears dentures Wears glasses Home Medications desvenlafaxine succinate 25 mg tablet,extended release 24 hr 50 mg PO QHS bipolar/mood 11/22/19 [History Last Taken Unknown] gabapentin 300 mg capsule 06/02/21 [History Last Taken Unknown] tizanidine 4 mg tablet mg 06/02/21 [History Last Taken Unknown] venlafaxine 150 mg tablet,extended release 24 hr 150 mg PO DAILY 07/01/21 [History Last Taken Unknown] amitriptyline 50 mg tablet 50 mg PO DAILY 11/11/21 [History Last Taken Unknown] crehnv-gcdgjjox-qgwbbso 3,000-10,000-14,000 unit capsule,delayed rel (Zenpep) See Rx Instructions PO TID EPI #320 caps 02/09/22 [Rx Last Taken Unknown] scopolamine base 1 mg over 3 days transdermal patch 1 patch transdermal Q3D PRN nausea and vomiting #4 ea 02/09/22 [Rx Last Taken Unknown] omeprazole 40 mg capsule,delayed release 40 mg PO BID gerd #60 caps 06/06/22 [Rx Last Taken Unknown] Allergy/AdvReac Type Severity Reaction Status Date / Time duloxetine Allergy Intermediate Dizziness Verified 07/21/22 20:21 adhesive tape Allergy Rash Verified 07/21/22 20:21 bupropion [From Wellbutrin] Allergy Swelling Verified 07/21/22 20:21 hydrocodone [From Vicodin] AdvReac Other Verified 07/21/22 20:21 risperidone [From Risperdal] AdvReac Other Verified 07/21/22 20:21 tramadol AdvReac Upset Verified 07/21/22 20:21 Stomach Family History Father Cancer Heart disease Hypertension Hyperlipidemia Grandmother Cancer stomach Grandfather Cancer Surgical History History of cardiac catheterization History of esophagogastroduodenoscopy (EGD) Hx laparoscopic cholecystectomy Hx of colonoscopy Hx of hysterectomy Hx of laminectomy Hx of tubal ligation S/P cervical spinal fusion S/P insertion of spinal cord stimulator Social History Smoking Status: Former smoker Electronic Cigarette Use: without nicotine alcohol intake: current substance use type: marijuana ROS ROS ED Constitutional Constitutional ED: Denies chills, fever(s) or sweats Eyes Eyes: Denies change in vision ENT ENT ED: Denies dysphagia or sore throat Cardiovascular Cardiovascular: Denies chest pain, leg edema, palpitations or racing heartbeat Respiratory/Chest Respiratory/Chest: Denies cough, dyspnea or dyspnea on exertion Gastrointestinal Gastrointestinal: Denies abdominal pain, diarrhea, nausea or vomiting Genitourinary Genitourinary ED: Denies dysuria, hematuria or urinary frequency Musculoskeletal Musculoskeletal: Denies back pain, extremity pain or neck pain Integumentary Reports Abrasions and wounds; Denies rash Neurologic Neurologic: Denies headache(s), paresthesias or weakness EXAM Physical Exam Const Vital Signs: 07/21/22 20:19 07/21/22 20:47 07/21/22 21:47 Temperature 97.6 F L Temperature Source Temporal Pulse Rate 90 Respiratory Rate 18 17 Respiratory Effort Normal Non-Labored Respiratory Depth Normal Respiratory Pattern Normal Blood Pressure 137/90 H Blood Pressure Mean 105 Pulse Ox 97 99 Oxygen Delivery Method Room Air Positive well nourished and well developed Constitutional Narrative: GCS 15. General Appearance ED: well developed and NAD HEENT Reports moist mucous membranes HEENT Narrative: Left mid forehead 2 cm horizontal laceration and, no active bleeding, subcutaneous exposure. No hemotympanums. Small abrasion to the maxillary. No proptosis or entrapment. normocephalic Eyes PERRL, EOMs intact bilaterally and conjunctivae normal General Eye ED: Yes normal appearance of both eyes Neck full ROM, no lymphadenopathy and supple General: Negative for tenderness Chest Wall Chest: Negative for tenderness Resp normal respiratory effort and normal air movement Effort and Inspection: symmetric chest movement; Negative for respiratory distress Cardio regular rate, regular rhythm and no murmurs Peripheral Pulses: pulses 2+ throughout GI normal to inspection, nondistended, normoactive bowel sounds and non-tender Palpation: Negative for guarding or rebound tenderness present Back/Spine no CVA tenderness and no thoracic nor lumbar tenderness Extremity Extremity Narrative: Upper extremities: Full range of motion. There are small abrasion palms of bilateral hands with no active bleeding. No deformities of the extremities. Pulses intact distally. Lower extremities: Negative logroll knee extensors remain intact bilaterally. There is abrasions prepatellar with no active bleeding. No bony tenderness of patella no deformities. Neuro vas intact distally. General Extremety ED: Negative for edema or tenderness General Extremity: Negative for edema Neuro oriented x3, CN's II-XII intact bilaterally and no sensory deficits noted Sensorium / Orientation: awake and alert Skin no rashes or lesions noted and no wounds MDM MDM MDM Narrative Medical decision making narrative: Interventions / MDM: Differential diagnosis: Closed head injury, facial laceration, multiple abrasions Diagnosis considered but do not suspect: Intracranial hemorrhage, however nexus CT head criteria negative. My EKG interpretation: N/A Imaging independently reviewed and interpreted by myself: N/A External documents reviewed: N/A Test considered but not ordered:N/A ED course: Patient chemical fall head injury. Abrasions bilateral knees. She declines x-ray of the knees. Tetanus updated. Laceration repair to the forehead. Concussion precautions with Tylenol started in the ED. Outpatient follow-up for suture removal. Return precautions. Procedure note: Verbal consent. Normal sterile conditions. LET placed for topical analgesia. Wound was cleansed copious with normal saline, there is no gross foreign bodies or gravel noted in the wound. Wound was closed using a total of 3, 6-0 nylon simple interrupted sutures with good approximation. Patient tolerated procedure well. Bacitracin placed by self. Re-evaluation: stable Disposition discussed with patient/family/significant other: Patient and significant other Case discussed with consulting clinician: N/A Discharge Plan Triage Chief Complaint: Fall ED Provider: Ge Baker Dx/Rx/DC Orders Clinical Impression: Facial laceration, Multiple abrasions, Head injury Instructions: Concussion Dc, ED Abrasion, ED FACIAL LACERATION Suture Tape Prescriptions: No Action venlafaxine 150 mg tablet extended release 24hr 150 mg PO DAILY amitriptyline 50 mg tablet 50 mg PO DAILY scopolamine base 1 mg over 3 days patch 3 day 1 patch transdermal Q3D PRN (Reason: nausea and vomiting) Qty: 4 0RF desvenlafaxine succinate 25 MG tablet extended release 24 hr 50 mg PO QHS tizanidine 4 mg tablet Label Comments: TAKE 1 TABLET BY MOUTH THREE TIMES DAILY NEEDED gabapentin 300 mg capsule Label Comments: Take 1 capsule by mouth daily at bedtime Zenpep 3,000-10,000 -14,000-unit capsule,delayed release(DR/EC) See Rx Instructions PO TID Qty: 320 1RF Rx Instructions: take three capsules with meals and one to two with snacks omeprazole 40 mg capsule,delayed release(DR/EC) 40 mg PO BID Qty: 60 2RF Primary Care Provider: Bee Penaloza Referrals: Bee Penaloza MD [Primary Care Provider] - 5 Days for suture removal Activity Restrictions/Additional Instructions: 3 sutures placed left forehead. Wound care discussed. Tylenol every 6 hours needed for headache symptoms. Follow-up with your doctor in 5 days for suture removal. Return if worsening symptoms. Disposition Disposition: Home, Self Care Discharge Date/Time: 07/21/22 21:51
[2022-07-21] MEDS: Lidocaine/Epi/Tetracaine 50 ML 1 APPLIC TOPICAL (20:53)
[2022-07-21] MEDS: Diphth,Pertuss(Acell),Tet Vac 0.5 ML Vial IM (20:53)
[2022-07-21 21:47] VITALS: RESP 17; O2SAT 99
== END 2022-07-21 21:51 | disposition home or self-care (01) ==
PROVIDERS: Emergency Provider Emergency Medicine; PCP Internal Medicine; Visit Provider Emergency Medicine
DX: S01.81XA Laceration without foreign body of other part of head, initial encounter (principal); M79.605 Pain in left leg; S80.211A Abrasion, right knee, initial encounter; W01.0XXA Fall on same level from slipping, tripping and stumbling without subsequent striking against object, initial encounter; M79.604 Pain in right leg; S60.511A Abrasion of right hand, initial encounter; Z87.891 Personal history of nicotine dependence; S60.512A Abrasion of left hand, initial encounter; S80.212A Abrasion, left knee, initial encounter; Z23 Encounter for immunization
CPT/HCPCS: 12011; 90715; 99283

== ENCOUNTER 2022-08-27 04:01 | Emergency (ER) | payer MEDICARE, MEDICAID, SELFPAY ==
[2022-08-27 04:03] VITALS: BP 125/73; PULSE 88; RESP 15; TEMP 36.8; O2SAT 97; BMI 37.3
--- NOTE | 2022-08-27 04:25 | EKG12_ITS ---
Test Reason : DYSRHYTHMIA Blood Pressure : / mmHG Vent. Rate : 074 BPM Atrial Rate : 074 BPM P-R Int : 116 ms QRS Dur : 082 ms QT Int : 384 ms P-R-T Axes : 061 022 028 degrees QTc Int : 426 ms Normal sinus rhythm with sinus arrhythmia Normal ECG Confirmed by JAILYN ROE, JUNIOR ([id number]), editor school photograph AMY SANCHEZ ([id number]) on 08/29/2022 11:11:45 AM Referred By: PL Confirmed By:JUNIOR GLASER MD
--- NOTE | 2022-08-27 04:37 | EX.ED.DYSGE1 ---
HPI History of Present Illness Chief Complaint: Other, Pain/Inj Informant: patient Narrative Narrative: Patient presents with swelling of feet and lower legs. But she also states she gets kind of swelling all over. Her hands get some swelling. She took her rings off. This is about the fourth episode that she has had in the last 2 or so months. She states it normally last for about a week and a half and goes away. She has talked to her doctor about it but she has not seen her doctor while she is having symptoms. She has no history of heart disease. She has no dyspnea. No known risk factor for DVT or PE and her symptoms are diffuse. She denied any new medicines. But then I went through her medicines I find out that she is on Zyprexa and just started it 3 months ago. This is shortly before her symptoms started. Zyprexa does have a known complication of swelling of face arms hands legs and feet. But she is not having hives from it. Evidently her dose of Zyprexa has also been increased once or twice trying to get good control of her other symptoms. [facility] Medical History Alcohol use Anxiety Arthritis Back pain Bipolar disorder Cardiology follow-up encounter Chronic diarrhea Depression Diarrhea Easy bruising Endometriosis Former smoker Gastric reflux History of colitis History of echocardiogram History of fibromyalgia History of irregular heartbeat History of pain when walking History of stress test Injury of head and neck Leg cramps Marijuana use Migraine headache Nausea Pain Restless legs Spontaneous cerebrospinal fluid leak from spine Syncope Wears dentures Wears glasses Home Medications desvenlafaxine succinate 25 mg tablet,extended release 24 hr 50 mg PO QHS bipolar/mood 11/22/19 [History Last Taken Unknown] gabapentin 300 mg capsule 06/02/21 [History Last Taken Unknown] tizanidine 4 mg tablet mg 06/02/21 [History Last Taken Unknown] venlafaxine 150 mg tablet,extended release 24 hr 150 mg PO DAILY 07/01/21 [History Last Taken Unknown] amitriptyline 50 mg tablet 50 mg PO DAILY 11/11/21 [History Last Taken Unknown] tlwnye-[id number]-[id number] 3,000-10,000-14,000 unit capsule,delayed rel (Zenpep) See Rx Instructions PO TID EPI #320 caps 02/09/22 [Rx Last Taken Unknown] scopolamine base 1 mg over 3 days transdermal patch 1 patch transdermal Q3D PRN nausea and vomiting #4 ea 02/09/22 [Rx Last Taken Unknown] omeprazole 40 mg capsule,delayed release 40 mg PO BID gerd #60 caps 06/06/22 [Rx Last Taken Unknown] Allergy/AdvReac Type Severity Reaction Status Date / Time duloxetine Allergy Intermediate Dizziness Verified 08/27/22 04:10 adhesive tape Allergy Rash Verified 08/27/22 04:10 bupropion [From Wellbutrin] Allergy Swelling Verified 08/27/22 04:10 gabapentin AdvReac Upset Verified 08/27/22 04:10 Stomach hydrocodone [From Vicodin] AdvReac Other Verified 08/27/22 04:10 risperidone [From Risperdal] AdvReac Other Verified 08/27/22 04:10 tramadol AdvReac Upset Verified 08/27/22 04:10 Stomach Family History Father Cancer Heart disease Hypertension Hyperlipidemia Grandmother Cancer stomach Grandfather Cancer Surgical History History of cardiac catheterization History of esophagogastroduodenoscopy (EGD) Hx laparoscopic cholecystectomy Hx of colonoscopy Hx of hysterectomy Hx of laminectomy Hx of tubal ligation S/P cervical spinal fusion S/P insertion of spinal cord stimulator Social History Smoking Status: Former smoker Electronic Cigarette Use: without nicotine alcohol intake: current substance use type: marijuana ROS ROS ED Constitutional Constitutional ED: Denies chills or fever(s) Eyes Eyes: Denies change in vision ENT ENT ED: Denies rhinorrhea Cardiovascular Cardiovascular: Denies chest pain, orthopnea, palpitations or paroxysmal nocturnal dyspnea Respiratory/Chest Respiratory/Chest: Denies cough, dyspnea, dyspnea on exertion, orthopnea or paroxysmal nocturnal dyspnea Gastrointestinal Gastrointestinal: Denies diarrhea, nausea or vomiting Genitourinary Genitourinary ED: Denies dysuria or hematuria Musculoskeletal Musculoskeletal: Reports myalgias and other Details: Patient has chronic back pain which is not new or different Integumentary Denies rash Neurologic Neurologic: Denies headache(s) Psychiatric Psychiatric: Reports anxiety Allergic/Immunologic Allergic/Immunologic ED: Denies tongue swelling or urticaria EXAM Physical Exam Narrative Exam Narrative: Patient is awake alert nontoxic sitting in bed. HEENT does not show any notable swelling. Speech is normal. Eyes show no icterus Neck does not show signs of JVD or stridor. Lungs are clear bilaterally and saturations are normal at 97% on room air showing no hypoxia. Heart rate is regular. Tones are not muffled. She has excellent peripheral pulses. I hear no murmur. Abdomen is mildly obese but soft and nontender. Extremities do show some edema. She actually has slight pitting edema on the dorsum of her feet and just the far distal pretibial area. But it is equal on both feet. There is no cord. No tenderness along the deep venous system. No distended veins. She has a little bit of fullness of soft tissues of her hands but its very minimal compared to the feet. No rashes. Neurologically she is awake alert appropriate no alteration in sensation or strength. Const Vital Signs: 08/27/22 04:03 08/27/22 04:10 Temperature 98.2 F Temperature Source Temporal Pulse Rate 88 Respiratory Rate 15 Respiratory Effort Normal Non-Labored Respiratory Pattern Normal Blood Pressure 125/73 H Blood Pressure Mean 90 Pulse Ox 97 Oxygen Delivery Method Room Air MDM MDM MDM Narrative Medical decision making narrative: Patient CBC shows mild anemia with hemoglobin 11.0 but she has had this before. Electrolytes showed no marked abnormality. Chloride was minimally up at 108. Normal renal function. Normal glucose. Beta natruretic peptide was normal at 31.9. I explained to the patient that her symptoms started shortly after starting Zyprexa. This has been increased once or more. Zyprexa has her symptoms as a known side effect. I think this is likely the source of her symptoms. There is no indication of acute kidney failure congestive heart failure. She has diffuse symptoms I do not think this represents DVT. She has had this come and go multiple times. I recommend she hold this medication. She can contact her physician about alternative therapies. We discussed reasons to return. I do not think chest x-ray or other imaging is needed. She has no dyspnea or hypoxia. Her saturations are normal at 97% on room air. Her lungs are clear. Lab Data Attestation: I reviewed the patient's lab results. Labs: Laboratory Results - last 24 hr 08/27/22 08/27/22 08/27/22 04:30 04:30 04:30 WBC 10.5 RBC 3.44 L Hgb 11.0 L Hct 33.9 L MCV 98.5 MCH 32.0 MCHC 32.4 RDW Std Deviation 50.3 H RDW Coeff of Margarita 14.0 Plt Count 380 MPV 9.1 Immature Gran % (Auto) 0.700 Neut % (Auto) 60.6 Lymph % (Auto) 27.6 Kinney % (Auto) 8.5 Eos % (Auto) 2.1 Baso % (Auto) 0.5 Absolute Neuts (auto) 6.4 Absolute Lymphs (auto) 2.91 Nucleated RBC % 0 Sodium 139 Potassium 3.9 Chloride 108 H Carbon Dioxide 27.0 Anion Gap 4 L BUN 18 Creatinine 0.74 Estim Creat Clear Calc 76.73 Est GFR (MDRD) Af Amer 109 Est GFR (MDRD) Non-Af 90 BUN/Creatinine Ratio 24.3 H Glucose 95 Calcium 9.1 B-Natriuretic Peptide 31.9 EKG Initial EKG: Comments: EKG done for diffuse edema/dysrhythmia shows normal sinus rhythm with slight sinus arrhythmia and overall normal rate at 74. No ectopy. No acute ST elevation or depression. Mild nonspecific changes. WA interval, QRS duration and QTc are all normal. Discharge Plan Triage Chief Complaint: Other, Pain/Inj ED Provider: Jose Juan Dougherty Dx/Rx/DC Orders Clinical Impression: Edema, Medication adverse effect Instructions: ED Drug Reaction, Other Prescriptions: No Action venlafaxine 150 mg tablet extended release 24hr 150 mg PO DAILY amitriptyline 50 mg tablet 50 mg PO DAILY scopolamine base 1 mg over 3 days patch 3 day 1 patch transdermal Q3D PRN (Reason: nausea and vomiting) Qty: 4 0RF desvenlafaxine succinate 25 MG tablet extended release 24 hr 50 mg PO QHS tizanidine 4 mg tablet Label Comments: TAKE 1 TABLET BY MOUTH THREE TIMES DAILY NEEDED gabapentin 300 mg capsule Label Comments: Take 1 capsule by mouth daily at bedtime Zenpep 3,000-10,000 -14,000-unit capsule,delayed release(DR/EC) See Rx Instructions PO TID Qty: 320 1RF Rx Instructions: take three capsules with meals and one to two with snacks omeprazole 40 mg capsule,delayed release(DR/EC) 40 mg PO BID Qty: 60 2RF Primary Care Provider: Bee Penaloza Referrals: Bee Penaloza MD [Primary Care Provider] - As soon as possible Disposition Disposition: Home, Self Care
[2022-08-27 04:39] LABS: Absolute Lymphocyte Count 2.91 X10^3/uL (0.83-4.51); Absolute Neutrophil Count 6.4 X10^3/uL (2.0-7.7); Basophil# 0.05 X10^3/uL; Basophil% 0.5 % (0-1); Eosinophil# 0.22 X10^3/uL; Eosinophils% 2.1 % (0-5); Hematocrit 33.9 % (37-47); Lymphocyte # 2.91 X10^3/ul (0.83-4.51); Lymphocyte % 27.6 % (19-41); Mean Corp Hgb Conc 32.4 g/dL (32-36); Mean Corpuscular Volume 98.5 fL (81-99); Mean Platelet Vol. 9.1 fl (6.2-12.0); Monocyte% 8.5 % (0-10); NRBC Flagged by Analyzer 0 % (0-5); Neutrophil # 6.39 X10^3/uL (2.7-7.7); Neutrophil % 60.6 % (47-70); Platelet Count 380 K/mm3 (150-450); RBC Distribution Width SD 50.3 fl (35.1-43.9); Red Blood Count 3.44 M/mm3 (4.2-5.4); White Blood Count 10.5 K/mm3 (4.4-11.0)
[2022-08-27] MEDS: oxyCODONE 5 MG Tablet PO (04:45)
[2022-08-27 04:52] LABS: Anion Gap 4 (5-15); BUN 18 mg/dL (7-18); BUN/Creat Ratio 24.3 RATIO (10-20); Calcium,Total 9.1 mg/dL (8.5-10.1); Chloride 108 mmol/L (98-107); Creatinine, Serum 0.74 mg/dL (0.55-1.02); EST Glomerular Filtration Rate 90 mL/min (>60); Est Glom Filt Rate - Afr Amer 109 mL/min (>60); Estimated Creatinine Clearance 76.73 ml/min; Glucose 95 mg/dL (74-106); Potassium 3.9 mmol/L (3.5-5.1); Sodium Level 139 mmol/L (136-145)
[2022-08-27 04:54] LABS: BNP,B-Type NATRIURETIC PEPTIDE 31.9 pg/mL (0-100)
[2022-08-27 05:35] VITALS: BP 138/77; PULSE 62; RESP 15; O2SAT 98
== END 2022-08-27 05:36 | disposition home or self-care (01) ==
PROVIDERS: Emergency Provider Emergency Medicine; PCP Internal Medicine; Visit Provider Emergency Medicine
DX: R60.9 Edema, unspecified (principal); F31.9 Bipolar disorder, unspecified; T50.905A Adverse effect of unspecified drugs, medicaments and biological substances, initial encounter; Z87.891 Personal history of nicotine dependence; Z79.899 Other long term (current) drug therapy; F41.9 Anxiety disorder, unspecified; K21.9 Gastro-esophageal reflux disease without esophagitis; Z90.49 Acquired absence of other specified parts of digestive tract; Z90.710 Acquired absence of both cervix and uterus
CPT/HCPCS: 80048; 83880; 85025; 93005; 99283; A4216

== ENCOUNTER → 2022-09-14 | Outpatient (CLI) | payer MEDICARE, MEDICAID, SELFPAY ==
--- NOTE | 2022-09-14 12:35 | RAD_ITS ---
STUDY: X-RAY - PELVIS AND RIGHT HIP REASON FOR EXAM: Female, 47 years old. HIP PAIN TECHNIQUE: 3 views of the pelvis and hip. COMPARISON: None. FINDINGS: There is a non-specific bowel gas pattern. Normal visualized soft tissue structures. Normal bilateral iliac wings, sacroiliac joints and visualized sacrum. Normal bilateral superior and inferior pubic rami. Normal pubic symphysis. Normal bilateral ischial tuberosities. Normal visualized femoral head. Normal acetabulum. Normal hip joint. RAD/HIP, UNI W/ Pelvis 2-3 Views IMPRESSION: Normal x-ray examination of the pelvis and hip If pain persists MRI recommended for further assessment. Electronically Signed: Gordy Mcknight MD at 22:34 EDT ,
== END | disposition home or self-care (01) ==
LOC: RAD 12:31
PROVIDERS: PCP Internal Medicine
DX: M25.551 Pain in right hip (principal)
CPT/HCPCS: 73502

== ENCOUNTER 2024-09-13 09:24 | Day surgery (SDC) | payer OTHER, MEDICARE, SELFPAY ==
--- NOTE | 2024-09-12 16:13 | PAT.ANE_ITS ---
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 When Was Last Pacemaker Check QUESTION #4 FULL TEXT: You/Your Family Experience fever (hyperthermia) with Anesthesia Last Oral Intake Last Oral intake: Last Oral Intake NPO since Meds taken in AM with sips of water? Meds patient instructed to take am of surgery PONV PONV - outside production inspector: PONV - outside production inspector Female Yes 09/12/24 12:17 HX of Motion Sickness Yes 09/12/24 12:17 HX of N/V After Surgery No 09/12/24 12:17 Non-Smoker No 09/12/24 12:17 Duration of Surgery greater No 09/12/24 12:17 than 60 minutes Number of Risk Factors 2 09/12/24 12:17 PONV Score Moderate Risk 09/12/24 12:17 Height & Weight Height & Weight: Anesthesia: Height & Weight Height 5 ft 2 in 08/27/22 04:03 Respiratory Assessment Respiratory Assessment - outside production inspector: Respiratory Tract Infection Hx - outside production inspector Hx Respiratory Tract Infection No 09/12/24 12:17 STOP Sleep Apnea STOP Sleep Apnea - outside production inspector: STOP Sleep Apnea - outside production inspector Hx Hypertension No 09/12/24 12:17 Hx Sleep Apnea No 09/12/24 12:17 CPAP BIPAP Do you snore loudly (louder No 09/12/24 12:17 than talking or can be heard Do you often feel tired/ Yes 09/12/24 12:17 fatigued/ sleepy during daytime? Has anyone observed you stop No 09/12/24 12:17 breathing during sleep? STOP Results Negative 09/12/24 12:17 QUESTION #5 FULL TEXT : Do you snore loudly (louder than talking or can be heard through closed doors)? 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 Specify any problems Hx of Preganancy in last 3 No 09/12/24 12:17 Months Nurse Filling Out Transfusion DSCHRIBER 09/12/24 12:17 & Questions: Date: 09/12/24 09/12/24 12:17 Time: 12:19 09/12/24 12:17 Patient unable to answer at this time (ie. confused, unrespo /Reproduction History /Reproductive History - outside production inspector: /Reproductive Hx- outside production inspector Hx Now No 09/12/24 12:17 Gestational Age (in weeks): EDC: Hx Hx Para Hx Section SAB No 09/12/24 12:17 PFS Medical History (Updated 09/12/24 @ 12:23 by Pam Reynolds) Smoker Pain Endometriosis History of echocardiogram Wears glasses Wears dentures Bipolar disorder Depression Anxiety Alcohol use Marijuana use Arthritis Restless legs Back pain Migraine headache History of fibromyalgia Injury of head and neck Syncope History of colitis Gastric reflux Leg cramps History of pain when walking History of stress test Cardiology follow-up encounter History of irregular heartbeat Spontaneous cerebrospinal fluid leak from spine Home Medications ?Medication ?Instructions ?Recorded ?Last Taken ?Type venlafaxine 150 mg tablet,extended 150 mg PO QHS 07/01 Unknown History release 24 hr omeprazole 40 mg capsule,delayed 40 mg PO BID gerd #60 caps 09/20/23 Unknown Rx release amitriptyline 100 mg tablet 100 mg PO QHS 09/12/24 Unk nown History apple cider vinegar 500 mg tablet 1,000 mg PO DAILY Unknown History aripiprazole 5 mg tablet 5 mg PO QHS 09/12/24 Unknown History estradiol 0.5 mg tablet 0.5 mg PO DAILY 09/12/24 Unk nown History hydroxyzine HCl 50 mg tablet 50 mg PO QHS PRN PRN anxi ety 09/12/24 Unknown History Allergy/AdvReac Type Severity Reaction Status Date / Time duloxetine Allergy Intermediate Dizziness Verified 09/12/24 12:12 adhesive tape Allergy Rash Verified 09/12/24 12:12 bupropion (From Wellbutrin) Allergy Swelling Verified 09/12/24 12:12 gabapentin AdvReac Upset Verified 09/12/24 12:12 Stomach hydrocodone (From Vicodin) AdvReac Other Verified 09/12/24 12:12 risperidone (From Risperdal) AdvReac Other Verified 09/12/24 12:12 tramadol AdvReac Upset Verified 09/12/24 12:12 Stomach Family History Father Cancer Heart disease Hypertension Hyperlipidemia Grandmother Cancer stomach Grandfather Cancer Surgical History History of cardiac catheterization Hx of colonoscopy History of esophagogastroduodenoscopy (EGD) Hx laparoscopic cholecystectomy Hx of tubal ligation Hx of hysterectomy Hx of laminectomy S/P cervical spinal fusion S/P insertion of spinal cord stimulator Social History Smoking Status: Current every day smoker tobacco type: cigarettes Electronic Cigarette Use: without nicotine alcohol intake: current substance use type: marijuana Audit: Pertinent Findings Pertinent Findings EKG Perinent findings: August 27, 2022. Normal sinus rhythm with sinus arrhythmia. Stress test pertinent findings: January 28, 2020. Patient had a area of stress- induced ischemia in portions of the distal anterior/anterior apical segments. (See cath below) Echo (EF%) pertinent findings: December 26, 2019. EF 62%. No significant valvular abnormalities. Heart catheterization pertinent findings: December 02, 2020. Angiographically normal coronary arteries. Right coronary dominant system. Recommend medical therapy. Consult pertinent findings: November 02, 2020. [place]. 1. Palpitations-rare PVCs noted on Holter. Patient is to limit stimulants such as coffee. Stay hydrated. 2. Family history of premature coronary artery disease/chest pain?stress test was abnormal. Pending heart cath. (See above). Additional pertinent findings: Holter monitor. November 05, 2019. Predominantly normal sinus rhythm. Rare PACs. Rare PVCs.. No runs noted. Patient's diary noted 'heart skipping' and 'pressure' which correlated with a PVC once. Recommendation Anesthesia Recommendation Anesthesia recommendation: OPTIMIZED for anesthesia
[2024-09-13] VITALS (12 sets, daily range): BP systolic 96–127; BP diastolic 72–83; PULSE 82–96; RESP 16–20; TEMP 36.4–36.7; O2SAT 94–99; BMI 37.5
[2024-09-13] MEDS: Lactated Ringers 1,000 ML 15 ML IV (09:51)
--- NOTE | 2024-09-13 09:51 | PRE.ANES_ITS ---
ASA Classification* ASA Classification ASA Classification: 3 Assessment & Plan Anesthesia* Anesthesia Assessment Anesthesia Assessment: Discussed sedation and/or anesthesia options, risks, benefits, and alternatives with patient/parents/legal guardian/POA. Questions invited. The patient/parents/legal guardian/POA seems to understand and agrees to proceed with anesthesia plan. Reviewed the physical assessment, medical history, allergy history and patient home medications list prior to surgery/procedure/anesthetic and documented any changes. Performed airway and anesthesia risk assessments. Anesthesia Type Anesthesia Type: General Anesthesia Focused Assessment* Temperature: 98.1 F Pulse Rate: 89 Blood Pressure: 127/77 Respiratory Rate: 16 Pulse Ox: 98 Airway Assessment Mouth opens: >3 cm Mallampati Score: II Focused Labs Anesthesia Preop lab: CBC WBC 10.5 K/mm3 (4.4-11.0) 08/27/22 04:30 08/27/22 RBC 3.44 M/mm3 (4.2-5.4) L 08/27/22 04:30 08/27/22 Hgb 11.0 g/dL (12.0-15.0) L 08/27/22 04:30 3 Hct 33.9 % (37-47) L 08/27/22 04:30 08/27/22 Plt Count 380 K/mm3 (150-450) 08/27/22 04:30 08/27/22 CHEMISTRY Potassium 3.9 mmol/L (3.5-5.1) 08/27/22 04:30 08/27/22 Sodium 139 mmol/L (136-145) 08/27/22 04:30 08/27/22 BUN 18 mg/dL (7-18) 08/27/22 04:30 08/27/22 Creatinine 0.74 mg/dL (0.55-1.02) 08/27/22 04:30 08/27/22 Glucose 95 mg/dL (74-106) 08/27/22 04:30 08/27/22 TSH 1.58 uIU/mL (0.358-3.74) 07/19/18 10:38 COAG Pre-Assessment Diagnosis/Proposed Procedure Planned Operative Procedure(s): BATTERY CHANGE SPINAL CORD STIMULATOR Anesthesia History 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 When Was Last Pacemaker Check QUESTION #4 FULL TEXT: You/Your Family Experience fever (hyperthermia) with Anesthesia Last Oral Intake Last Oral intake: Last Oral Intake NPO since 16:00 09/13/24 09:48 Meds taken in AM with sips of water? 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 - electric installer Female Yes 09/12/24 12:17 HX of Motion Sickness Yes 09/12/24 12:17 HX of N/V After Surgery No 09/12/24 12:17 Non-Smoker No 09/12/24 12:17 Duration of Surgery greater No 09/12/24 12:17 than 60 minutes Number of Risk Factors 2 09/12/24 12:17 PONV Score Moderate Risk 09/12/24 12:17 Height & Weight Height & Weight: Anesthesia: Height & Weight Height 5 ft 2 in 09/13/24 09:48 Weight: 93 kg 09/13/24 09:48 Body Mass Index (BMI) 37.5 09/13/24 09:48 Respiratory Assessment Respiratory Assessment - electric installer: Respiratory Tract Infection Hx - electric installer Hx Respiratory Tract Infection No 09/12/24 12:17 STOP Sleep Apnea STOP Sleep Apnea - electric installer: STOP Sleep Apnea - electric installer Hx Hypertension No 09/12/24 12:17 Hx Sleep Apnea No 09/12/24 12:17 CPAP BIPAP Do you snore loudly (louder No 09/12/24 12:17 than talking or can be heard Do you often feel tired/ Yes 09/12/24 12:17 fatigued/ sleepy during daytime? Has anyone observed you stop No 09/12/24 12:17 breathing during sleep? STOP Results Negative 09/12/24 12:17 QUESTION #5 FULL TEXT : Do you snore loudly (louder than talking or can be heard through closed doors)? 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 Specify any problems Hx of Preganancy in last 3 No 09/12/24 12:17 Months Nurse Filling Out Transfusion DSCHRIBER 09/12/24 12:17 & Questions: Date: 09/12/24 09/12/24 12:17 Time: 12:19 09/12/24 12:17 Patient unable to answer at this time (ie. confused, unrespo /Reproduction History /Reproductive History - electric installer: /Reproductive Hx- electric installer Hx Now No 09/12/24 12:17 Gestational Age (in weeks): EDC: Hx Hx Para Hx Section SAB No 09/12/24 12:17 Active Medications Active Medications: Current Medications Generic Name Dose Route Start Last Admin Trade Name Freq PRN Reason Stop Dose Admin Cefazolin Sodium 2 gm/ Sodium 110 mls @ 150 mls/hr 09/13/24 11:00 Chloride IV 09/13/24 11:43 INTRAOP ONE Lactated Ringer's 1,000 mls @ 15 mls/hr 09/13/24 09:45 IV .Q48H ALLAN PFSH Medical History Smoker Pain Endometriosis History of echocardiogram Wears glasses Wears dentures Bipolar disorder Depression Anxiety Alcohol use Marijuana use Arthritis Restless legs Back pain Migraine headache History of fibromyalgia Injury of head and neck Syncope History of colitis Gastric reflux Leg cramps History of pain when walking History of stress test Cardiology follow-up encounter History of irregular heartbeat Spontaneous cerebrospinal fluid leak from spine Home Medications ?Medication ?Instructions ?Recorded ?Last Taken ?Type venlafaxine 150 mg tablet,extended 150 mg PO QHS 07/01 Unknown History release 24 hr omeprazole 40 mg capsule,delayed 40 mg PO BID gerd #60 caps 09/20/23 Unknown Rx release amitriptyline 100 mg tablet 100 mg PO QHS 09/12/24 Unk nown History apple cider vinegar 500 mg tablet 1,000 mg PO DAILY Unknown History aripiprazole 5 mg tablet 5 mg PO QHS 09/12/24 Unknown History estradiol 0.5 mg tablet 0.5 mg PO DAILY 09/12/24 Unk nown History hydroxyzine HCl 50 mg tablet 50 mg PO QHS PRN PRN anxi ety 09/12/24 Unknown History Allergy/AdvReac Type Severity Reaction Status Date / Time duloxetine Allergy Intermediate Dizziness Verified 09/13/24 09:47 adhesive tape Allergy Rash Verified 09/13/24 09:47 bupropion (From Wellbutrin) Allergy Swelling Verified 09/13/24 09:47 gabapentin AdvReac Upset Verified 09/13/24 09:47 Stomach hydrocodone (From Vicodin) AdvReac Other Verified 09/13/24 09:47 risperidone (From Risperdal) AdvReac Other Verified 09/13/24 09:47 tramadol AdvReac Upset Verified 09/13/24 09:47 Stomach Family History Father Cancer Heart disease Hypertension Hyperlipidemia Grandmother Cancer stomach Grandfather Cancer Surgical History History of cardiac catheterization Hx of colonoscopy History of esophagogastroduodenoscopy (EGD) Hx laparoscopic cholecystectomy Hx of tubal ligation Hx of hysterectomy Hx of laminectomy S/P cervical spinal fusion S/P insertion of spinal cord stimulator Social History Smoking Status: Current every day smoker tobacco type: cigarettes Electronic Cigarette Use: without nicotine alcohol intake: current substance use type: marijuana Review of Systems (Anesthesia) ROS Narrative System reviewed and no additional complaints, except as documented.
[2024-09-13] MEDS: Cefazolin 2 GM in 0.9% Normal Saline (100mL Bag) 100 ML IV (10:44)
--- NOTE | 2024-09-13 11:00 | FORE_PTH ---
PATIENT: JONH ROSS LOC: [facility] – [place] U#:[id number] AGE/SX: 49/F ROOM: RE09/13/[address]: Dr. lAcira Gomez MD : 1975 BED: DIS: 09/13/2024 SPEC #: [id number] RECD: 09/13/24 13:39 STATUS: SU REQ #: [id number] TYLER: 09/13/24 11:[address]: Alcira Gomez DEPT: SURGICAL PATHOLOGY RECD BY: Juan Manuel Urias ENTERED: 09/13/24 13:53 SP TYPE: FOREIGN B OTHR DR: Dr. 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 GROSS DESCRIPTION A. Received fresh in a bag labeled with the patient's name, date of , and battery unit for gross exam pathology is a 48.7 g irregular silver metal and white plastic device measuring 5.5 x 4.7 x 1.2 cm. 1 side displays the inscription, 1 8 Wan, [employer] XR, [employer] [id number] and the opposing side displays inscription, 16, 9, [id number]. No soft tissue is received; no sections are submitted for microscopic evaluation, GROSS ONLY. [facility] 09-13-2024 CPT:19093
[2024-09-13] MEDS: Bupiv/Epi 0.25% 30 ML Vial (11:13)
[2024-09-13] MEDS: Bupivacaine Mpf 0.5% 30 ML VIAL (11:13)
--- NOTE | 2024-09-13 11:34 | PCM.POST.ANE ---
Anesthesia: Postop Eval I Current Vital Signs Temperature: 97.6 F Pulse Rate: 95 Blood Pressure: 96/72 Respiratory Rate: 20 Pulse Ox: 98 Assessment Airway patent: Yes Spontaneous unlabored respirations: Yes nausea: No Vomiting: No Anesthesia Complication: No Fluid Hydration Crystalloid volume administer (ml): 800 Total IV fluid infused: 800 Progress Note Anesthesia document: Postop Eval 1 completed: Yes
--- NOTE | 2024-09-13 12:16 | POSTOPAN2_ITS ---
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
--- NOTE | 2024-09-13 12:16 | PCM.POSTANE2 ---
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 Spontaneous unlabored Yes 09/13/24 11:34 HEALTH INFORMATION MANAGEMENT DIRECTOR.CSIR respirations Mental status nausea No 09/13/24 11:34 HEALTH INFORMATION MANAGEMENT DIRECTOR.CSIR Vomiting No 09/13/24 11:34 HEALTH INFORMATION MANAGEMENT DIRECTOR.CSIR Anesthesia Postop Eval I: Fluid Summary Crystalloid volume administer 800 09/13/24 11:34 HEALTH INFORMATION MANAGEMENT DIRECTOR.CSIR (ml) Colloids volume administered ( ml) Blood Product volume administered (ml) Total IV fluid infused 800 09/13/24 11:34 HEALTH INFORMATION MANAGEMENT DIRECTOR.CSIR Anesthesia Postop Eval I: Summary Notes Anesthesia Complication No 09/13/24 11:34 HEALTH INFORMATION MANAGEMENT DIRECTOR.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
== END 2024-09-13 13:01 | disposition home or self-care (01) ==
LOC: SDC 09:26 → AC 09:30
PROVIDERS: PCP Internal Medicine; Referring Provider Anesthesiology Pain Medicine; Visit Provider Anesthesiology Pain Medicine
PROC: (CPT 63688; principal; 2024-09-13 10:45)
DX: M96.1 Postlaminectomy syndrome, not elsewhere classified (principal); G89.29 Other chronic pain; Z90.49 Acquired absence of other specified parts of digestive tract; Z98.1 Arthrodesis status; F17.210 Nicotine dependence, cigarettes, uncomplicated
CPT/HCPCS: 63685; 88300; J2405